=== PATIENT | male | born 1935 | race Caucasian/White ===

== ENCOUNTER → 2017-01-26 | Outpatient (CLI) | payer MEDICARE ==
[~2017-01-26] MED LIST: ACET-1256 PO; AVD5 PO; MULT-506 PO; PRED-301 PO; VITA400C15 PO; ZINC1CAP PO
[2017-01-26 12:21] LABS: BASO % 1.5 %; BASO ABS # 0.08 K/uL (0-0.2); COMPLETE YES; EOS % 3.7 %; IG% 0.2 %; LYMPH % 30.6 %; LYMPH ABS # 1.64 K/uL (1.2-3.4); MEAN CELL VOLUME 92.6 fL (80-100); MEAN CORPUSCULAR HEMOGLOBIN 31.6 pg (25-34); MEAN CORPUSCULAR HGB CONC 34.1 g/dl (32-36); MEAN PLATELET VOLUME 10.7 fL (7.4-10.4); MONO % 12.9 %; NEUT % 51.1 %; PLATELET COUNT 155 K/uL (130-400); RED BLOOD COUNT 4.21 M/uL (4.7-6.1); WHITE BLOOD COUNT 5.36 K/uL (4.8-10.8)
[2017-01-26 12:33] LABS: ESTIMATED AVERAGE GLUCOSE 134 mg/dl; HA1C FLAG Normal (Normal)
[2017-01-26 12:41] LABS: CHOLESTEROL/HDL RATIO 1.8
[2017-01-26 14:15] LABS: RATIO 5.5 mcg/mg (0-30.0)
== END | disposition home or self-care (01) ==
LOC: C.LAB1850 10:05
PROVIDERS: ATTEND Internal Medicine
DX: E11.9 Type 2 diabetes mellitus without complications (principal); E78.5 Hyperlipidemia, unspecified; M25.50 Pain in unspecified joint

== ENCOUNTER → 2017-07-28 | Outpatient (CLI) | payer MEDICARE ==
[2017-07-28 12:42] LABS: BASO ABS # 0.05 K/uL (0-0.2); COMPLETE YES; EOS % 3.4 %; HEMATOCRIT 37.8 % (42-52); IG% 0.2 %; LYMPH % 29.4 %; LYMPH ABS # 1.48 K/uL (1.2-3.4); MEAN CELL VOLUME 91.1 fL (80-100); MEAN CORPUSCULAR HEMOGLOBIN 31.8 pg (25-34); MEAN CORPUSCULAR HGB CONC 34.9 g/dl (32-36); MEAN PLATELET VOLUME 11.2 fL (7.4-10.4); MONO % 11.5 %; NEUT % 54.5 %; PLATELET COUNT 154 K/uL (130-400); RED BLOOD COUNT 4.15 M/uL (4.7-6.1); WHITE BLOOD COUNT 5.03 K/uL (4.8-10.8)
[2017-07-28 13:19] LABS: ALT/SGPT 33 U/L (12-78); AST/SGOT 26 U/L (15-37); BLOOD UREA NITROGEN 17 mg/dl (7-18); BUN/CREATININE RATIO 19.7 (10-20); CALCIUM 9.1 mg/dl (8.5-10.1); CARBON DIOXIDE 26 mmol/L (21-32); CHLORIDE 104 mmol/L (98-107); CREATININE 0.88 mg/dl (0.60-1.40); GLUCOSE 105 mg/dl (70-99); POTASSIUM 3.6 mmol/L (3.5-5.1); SODIUM 136 mmol/L (136-145)
[2017-07-28 13:21] LABS: ALKALINE PHOSPHATASE 43 U/L (45-117); CHOLESTEROL 158 mg/dl (0-200); CHOLESTEROL/HDL RATIO 1.7; HDL CHOLESTEROL 92 mg/dl; LDL CHOLESTEROL CALCULATED 56 mg/dl; TRIGLYCERIDES 49 mg/dl (0-150); VERY LOW DENSITY LIPOPROT CALC 10 mg/dl
[2017-07-28 14:17] LABS: ESTIMATED AVERAGE GLUCOSE 128 mg/dl; HA1C FLAG Normal (Normal)
== END | disposition home or self-care (01) ==
LOC: C.LABPBG 09:31
PROVIDERS: ATTEND Urology
DX: D64.9 Anemia, unspecified (principal); M13.0 Polyarthritis, unspecified; E78.5 Hyperlipidemia, unspecified; E11.9 Type 2 diabetes mellitus without complications

== ENCOUNTER → 2017-09-12 | Outpatient (CLI) | payer MEDICARE | END | disposition home or self-care (01) | LOC: C.LAB 12:04 | PROVIDERS: ATTEND Urology | DX: R97.20 Elevated prostate specific antigen [PSA] (principal); N40.3 Nodular prostate with lower urinary tract symptoms ==

== ENCOUNTER → 2018-01-23 | Outpatient (CLI) | payer MEDICARE ==
[2018-01-23 13:57] LABS: BASO ABS # 0.11 K/uL (0-0.2); EOS % 4.9 %; EOS ABS # 0.27 K/uL (0-0.5); HEMATOCRIT 38.2 % (42-52); IG# 0.02 K/uL (0.00-0.02); LYMPH % 30.6 %; LYMPH ABS # 1.69 K/uL (1.2-3.4); MEAN CELL VOLUME 90.1 fL (80-100); MEAN CORPUSCULAR HEMOGLOBIN 30.7 pg (25-34); MONO % 12.7 %; NEUT % 49.4 %; NEUT ABS # 2.74 K/uL (1.4-6.5); PLATELET COUNT 178 K/uL (130-400); RED CELL DISTRIBUTION WIDTH CV 13.8 % (11.5-14.5); RED CELL DISTRIBUTION WIDTH SD 46.1 fL (36.4-46.3); WHITE BLOOD COUNT 5.53 K/uL (4.8-10.8)
[2018-01-23 14:23] LABS: HEMOGLOBIN A1C 6.2 % (4.5-5.6)
[2018-01-23 14:42] LABS: ALBUMIN 3.4 gm/dl (3.4-5.0); ALKALINE PHOSPHATASE 49 U/L (45-117); ALT/SGPT 23 U/L (12-78); AST/SGOT 18 U/L (15-37); BLOOD UREA NITROGEN 19 mg/dl (7-18); CALCIUM 8.7 mg/dl (8.5-10.1); CARBON DIOXIDE 28 mmol/L (21-32); CREATININE 1.05 mg/dl (0.60-1.40); GLUCOSE 95 mg/dl (70-99); SODIUM 133 mmol/L (136-145); TOTAL PROTEIN 6.8 gm/dl (6.4-8.2)
[2018-01-23 14:47] LABS: CHOLESTEROL 149 mg/dl (0-200); LDL CHOLESTEROL CALCULATED 60 mg/dl
== END | disposition home or self-care (01) ==
LOC: C.LABPBG 09:51
PROVIDERS: ATTEND Internal Medicine
DX: Z00.00 Encounter for general adult medical examination without abnormal findings (principal); E78.5 Hyperlipidemia, unspecified; E11.9 Type 2 diabetes mellitus without complications

== ENCOUNTER → 2018-02-15 | Outpatient (CLI) | payer MEDICARE ==
[2018-02-15 12:11] LABS: BASO % 1.1 %; BASO ABS # 0.07 K/uL (0-0.2); EOS % 2.4 %; EOS ABS # 0.16 K/uL (0-0.5); HEMATOCRIT 39.2 % (42-52); HEMOGLOBIN 13.4 g/dL (14.0-18.0); IG# 0.03 K/uL (0.00-0.02); LYMPH % 16.6 %; LYMPH ABS # 1.09 K/uL (1.2-3.4); MEAN CELL VOLUME 88.9 fL (80-100); MEAN CORPUSCULAR HEMOGLOBIN 30.4 pg (25-34); MEAN CORPUSCULAR HGB CONC 34.2 g/dl (32-36); MEAN PLATELET VOLUME 10.5 fL (7.4-10.4); MONO % 8.7 %; MONO ABS # 0.57 K/uL (0.11-0.59); NEUT % 70.7 %; NEUT ABS # 4.63 K/uL (1.4-6.5); PLATELET COUNT 170 K/uL (130-400); RED CELL DISTRIBUTION WIDTH CV 14.1 % (11.5-14.5); RED CELL DISTRIBUTION WIDTH SD 46.4 fL (36.4-46.3); WHITE BLOOD COUNT 6.55 K/uL (4.8-10.8)
[2018-02-15 12:40] LABS: ALBUMIN 3.6 gm/dl (3.4-5.0); AST/SGOT 21 U/L (15-37); CREATININE 1.12 mg/dl (0.60-1.40)
[2018-02-15 12:43] LABS: ALKALINE PHOSPHATASE 46 U/L (45-117); ALT/SGPT 27 U/L (12-78)
== END | disposition home or self-care (01) ==
LOC: C.LAB1850 11:15
PROVIDERS: ATTEND Physician Assistant
DX: Z79.899 Other long term (current) drug therapy (principal)

== ENCOUNTER 2022-10-28 12:49 | Inpatient (IN) ==
--- NOTE | 2022-10-28 13:26 | XRay Report ---
XR chest 2V PA/lateral HISTORY: Stroke symptoms. COMPARISON: None. FINDINGS: No pneumothorax. No pleural effusions. The cardiac silhouette is mildly enlarged. No focal lung consolidations to suggest a pneumonia. No evidence for pulmonary edema. Slightly rotated study. There are old, healed left-sided rib fractures. There are low lung volumes. IMPRESSION: Mild cardiomegaly. Otherwise, no acute process within the chest. ACT 112: Negative or not required by law. Electronically signed by: Charbel Shrestha M.D. 10/28/2022 1:25 PM
[2022-10-28 14:03] LABS: Hematocrit (blood only) 38.9 % (40.1-51.0); Hemoglobin 13.7 g/dl (14.0-18.0); Mean Corpuscular Hemoglobin 33.1 pg (25.0-34.0); Mean Corpuscular Hgb Conc 35.2 g/dL (32.0-36.0); Mean Platelet Volume 10.9 fL (9.4-12.4); Platelet Count 142 K/uL (130-400); RDW Coefficient of Variation 13.7 % (11.5-14.5); RDW Standard Deviation 47.1 fL (36.4-46.3); Red Blood Count 4.14 M/uL (4.63-6.08); White Blood Count 6.17 K/ul (4.8-10.8)
[2022-10-28 14:15] LABS: INR 1.1 (0.9-1.1); Partial Thromboplastin Ratio 0.9; Partial Thromboplastin Time 25.9 Seconds (21.0-31.0); Prothrombin Time 11.9 Seconds (9.0-12.0)
[2022-10-28 14:32] LABS: Albumin Globulin Ratio 1.5 (0.9-2); Albumin Level 3.8 gm/dl (3.4-5.0); BUN Creatinine Ratio 22.5 (10-20); Bilirubin,Total 1.2 mg/dl (0.2-1.0); Calcium 8.8 mg/dl (8.5-10.1); Creatinine Clr Calc Pharmacy 60.7 ml/min; Est GFR (African American) 90.4 ml/min; Globulin 2.5 gm/dl (2.5-4.0); Magnesium 1.8 mg/dl (1.7-2.4); Potassium 4.2 mmol/L (3.5-5.1); Total Protein 6.3 gm/dl (6.0-8.3)
--- NOTE | 2022-10-28 14:39 | Emergency Department Note ---
Impression & Plan TIA (transient ischemic attack) ADMIT ED Provider Note HPI: The patient is an 87-year-old gentleman with history of hyperlipidemia, diabetes, presents the emergency department with a chief complaint of a transient episode of garbled speech last evening prior to going to bed. Patient's states that the patient was going to the restroom when he seemed to not be making sense and talking to himself down the hallway. She states that for approximately 5 minutes he was having difficulty expressing his words. She states this then abruptly improved and he was making sense again. He slept comfortably throughout the night and again into this morning, however concern for a possible stroke episode he was brought to the ED today for further assessment. On my initial evaluation here in the ED the patient appears well, he does not have any focal deficits, he is able to answer my questions appropriately, he does admit to this episode yesterday and states he does remember feeling as if he could not express his words. He states he has not had any similar events previously. Patient is noted to be bradycardic on arrival in the 40s, states that this has not previously been an issue either. Patient denies any chest pain or shortness of breath. ROS: - Per HPI *Outpatient medications and allergy history reviewed. *Pertinent external medical records reviewed. PE: General: Alert frail-appearing, no acute distress HEENT: Normocephalic, trachea midline Eyes: Extraocular eye movement is intact, no scleral erythema Pulmonary: Clear to auscultation bilaterally, no wheezing Cardio: Bradycardic rate with regular rhythm GI: Abdomen is soft, nontender : No suprapubic tenderness MSK: No evidence of trauma or malformation of the extremities, no edema Skin: No evidence of rash Neuro: Alert, no focal deficits, no ataxia on [id number] testing bilaterally, symmetrical facial movements are appreciated, no drift of the upper extremities or lower extremities with testing against gravity Psychiatric: Cooperative hospital monitor: - An order was placed for continuous cardiac monitoring - Patient was noted to be in junctional bradycardia with a rate of 47 EKG: (As interpreted by myself): Rate: 42 Rhythm: Junctional bradycardia Intervals: IN interval indeterminate, QRS 118 ms, QTC [address] changes: No ST elevation Time: 1441 NIH STROKE SCALE: 1A: Level of consciousness Alert; keenly responsive 0 1B: Ask month and age Both questions right 0 1C: 'Blink eyes' & 'squeeze hands' Performs both tasks 0 2: Horizontal extraocular movements Normal 0 3: Visual barry No visual loss 0 4: Facial palsy Normal symmetry 0 5A: Left arm motor drift No drift for 10 seconds 0 5B: Right arm motor drift No drift for 10 seconds 0 6A: Left leg motor drift No drift for 5 seconds 0 6B: Right leg motor drift No drift for 5 seconds 0 7: Limb Ataxia No ataxia 0 8: Sensation Normal; no sensory loss 0 9: Language/aphasia Normal; no aphasia 0 10: Dysarthria Normal 0 11: Extinction/inattention No abnormality 0 TOTAL NIH SCORE =0 Medical Decision Making: Patient presented to the emergency department with an episode of transient expressive aphasia last evening. On arrival here to the ED he appears well, he is noted to be bradycardic with apparent junctional bradycardia on EKG although he has been asymptomatic from the standpoint, no syncope or presyncope, no chest pain or shortness of breath. Patient's blood pressure has been stable throughout his presentation here in the ED, he is afebrile on arrival and saturating well on room air. Patient was not considered a candidate for tPA or aggressive therapy given his symptom resolution on my examination and his episode occurring last evening. CT imaging of the head including CT angiography of the head and neck was obtained that does not show any evidence of large vessel occlusion or obvious subacute stroke. Lab work does not show any acute or critical abnormalities. Patient remained stable while here in the ED without any new focal deficits. I suspect that he may have had a transient ischemic attack given his expressive aphasia last evening. He does at times have some delay in response to my questioning here, although he is alert and oriented x3. Aspirin was not given secondary to allergy history obtained from at the bedside. I discussed all of the above findings with the patient, his nephew, and his at the bedside. At this time I feel it would be reasonable to admit the patient for further monitoring and likely cardiology consultation regarding his bradycardia. I did discuss the patient's presentation and EKG findings with on- call cardiology, Dr. Quinonez, he is agreeable for inpatient consultation at this time given the patient's otherwise hemodynamic stability and lack of symptoms from the standpoint of his bradycardia, I do not think emergency consultation with cardiology is required here in the ED. Patient and his family are in agreement for admission, patient was placed for admission in stable condition following my discussion with the on-call hospitalist, Dr. Koo. Disposition discussion held by myself with: Patient, , and nephew at the bedside Diagnosis: 1. Transient episode of expressive aphasia / TIA symptoms 2. Bradycardia Disposition: Admission Sergey Noel DO Emergency Medicine Past Med/Surg History Medical History Acute gout (07/12/14) Anemia Arthralgia Cellulitis of hand, right Crush injury to finger Degenerative arthritis of knee, bilateral Diabetes mellitus Fasciitis (07/01/14) Finger laceration Fracture of pelvis History of diverticulitis Hyperlipidemia Inflammatory polyarthropathy Left arm cellulitis Metabolic disorder Surgical History H/O hand surgery S/P cataract surgery Family History Brother Prostate cancer Sister Diabetes Denies family history of Ovarian cancer Myocardial infarction Breast cancer Colorectal cancer Social History Smoking Status: Never smoker Second Hand Exposure: No; Hx Alcohol Use: No Hx Substance Use: No Preferred Language: Azerbaijani Communication Ability: Effective marital status: Current Living Situation: Spouse current occupational status: retired Feels Safe at Home: Yes Seatbelt Use: always Allergies Allergies Allergy/AdvReac Type Severity Reaction Status Date / Time ibuprofen Allergy Unknown swelling Verified 10/28/22 15:36 Home Meds Home Medications Medication Instructions Recorded Confirmed prednisone 5 mg tablet 5 mg PO QAM 06/13/19 10/28/22 risedronate 35 mg tablet 35 mg PO WK 06/13/19 10/28/22 cholecalciferol (vitamin D3) 25 25 mcg PO DAILY 10/28/22 10/28/22 mcg (1,000 unit) tablet (Vitamin D3) nystatin-triamcinolone 100,000 1 applic topical BID PRN as needed 10/28/22 10/28/22 unit/g-0.1 % topical cream Previous Rx's Medication Instructions Recorded qywxymgc-jex-jpjmc acid 300 1 tab PO DAILY #30 tabs 06/13/19 mcg-lycopene 600 mcg-lutein 300 mcg tablet (Centrum Silver Ultra Men's) mometasone 0.1 % topical cream 1 applic topical DAILY #159 grams 06/07/22 dutasteride 0.5 mg capsule 0.5 mg PO DAILY #90 caps 09/14/22 (Avodart) Results & Data (ED) Vital Signs Vital Signs - 24 hr 10/28/22 12:52 10/28/22 14:05 Temperature 36.3 C L Temperature Source Skin Pulse Rate 44 L Pulse Rhythm Regular Pulse Strength Normal Respiratory Rate 20 Respiratory Effort / Characteristics Non-Labored Spontaneous Respiratory Depth Normal Respiratory Pattern Regular Blood Pressure 117/66 Blood Pressure Mean 83 Pulse Oximetry 98 93 Oxygen Delivery Method Room Air Room Air Sepsis Recent Fever Within 48 Hours No Sepsis New/Unexplained Change in Mental Status N/A Sepsis Action Taken by Nursing No Action Required Laboratory Data 10/28/22 13:42 10/28/22 13:42 Lab Results 10/28/22 10/28/22 10/28/22 Range/Units 13:42 13:42 13:42 WBC 6.17 (4.8-10.8) K/ul RBC 4.14 L (4.63-6.08) M/uL Hgb 13.7 L (14.0-18.0) g/dl Hct 38.9 L (40.1-51.0) % MCV 94.0 (80.0-100.0) fL MCH 33.1 (25.0-34.0) pg MCHC 35.2 (32.0-36.0) g/dL RDW Std Deviation 47.1 H (36.4-46.3) fL RDW Coeff of Nay 13.7 (11.5-14.5) % Plt Count 142 (130-400) K/uL MPV 10.9 (9.4-12.4) fL PT 11.9 (9.0-12.0) Seconds INR 1.1 (0.9-1.1) APTT 25.9 (21.0-31.0) Seconds PTT Ratio 0.9 Sodium 131 L (136-145) mmol/L Potassium 4.2 (3.5-5.1) mmol/L Chloride 96 L (98-107) mmol/L Carbon Dioxide 29 (21-32) mmol/L Anion Gap 6 (3-11) BUN 20 (6-23) mg/dl Creatinine 0.89 (0.6-1.4) mg/dl Est Cr Clr Drug Dosing 60.7 ml/min Est GFR ( Amer) 90.4 ml/min Est GFR (Non-Af Amer) 78.0 ml/min BUN/Creatinine Ratio 22.5 H (10-20) Glucose 97 (70-99(Fasting)) mg/dl POC Glucose (70-99) mg/dl Calcium 8.8 (8.5-10.1) mg/dl Magnesium 1.8 (1.7-2.4) mg/dl Total Bilirubin 1.2 H (0.2-1.0) mg/dl AST 19 (13-39) U/L ALT 24 (7-52) U/L Alkaline Phosphatase 50 (34-104) U/L Total Protein 6.3 (6.0-8.3) gm/dl Albumin 3.8 (3.4-5.0) gm/dl Globulin 2.5 (2.5-4.0) gm/dl Albumin/Globulin Ratio 1.5 (0.9-2) SARS-CoV-2, RNA, NAAT (NEGATIVE) 10/28/22 10/28/22 Range/Units 14:04 15:45 WBC (4.8-10.8) K/ul RBC (4.63-6.08) M/uL Hgb (14.0-18.0) g/dl Hct (40.1-51.0) % MCV (80.0-100.0) fL MCH (25.0-34.0) pg MCHC (32.0-36.0) g/dL RDW Std Deviation (36.4-46.3) fL RDW Coeff of Nay (11.5-14.5) % Plt Count (130-400) K/uL MPV (9.4-12.4) fL PT (9.0-12.0) Seconds INR (0.9-1.1) APTT (21.0-31.0) Seconds PTT Ratio Sodium (136-145) mmol/L Potassium (3.5-5.1) mmol/L Chloride (98-107) mmol/L Carbon Dioxide (21-32) mmol/L Anion Gap (3-11) BUN (6-23) mg/dl Creatinine (0.6-1.4) mg/dl Est Cr Clr Drug Dosing ml/min Est GFR ( Amer) ml/min Est GFR (Non-Af Amer) ml/min BUN/Creatinine Ratio (10-20) Glucose (70-99(Fasting)) mg/dl POC Glucose 125 H (70-99) mg/dl Calcium (8.5-10.1) mg/dl Magnesium (1.7-2.4) mg/dl Total Bilirubin (0.2-1.0) mg/dl AST (13-39) U/L ALT (7-52) U/L Alkaline Phosphatase (34-104) U/L Total Protein (6.0-8.3) gm/dl Albumin (3.4-5.0) gm/dl Globulin (2.5-4.0) gm/dl Albumin/Globulin Ratio (0.9-2) SARS-CoV-2, RNA, NAAT NEGATIVE (NEGATIVE) Administered Medications Discontinued Medications Ioversol (Optiray 320 500ml) 115 ml IV ONCE ONE Stop: 10/28/22 15:12 Last Admin: 10/28/22 15:11 Dose: 115 ml Documented By: JEFFY Imaging Data Radiologist's Impression: Chest X-Ray 10/28/22 13:00 XR chest 2V PA/lateral HISTORY: Stroke symptoms. COMPARISON: None. FINDINGS: No pneumothorax. No pleural effusions. The cardiac silhouette is mildly enlarged. No focal lung consolidations to suggest a pneumonia. No evidence for pulmonary edema. Slightly rotated study. There are old, healed left-sided rib fractures. There are low lung volumes. IMPRESSION: Mild cardiomegaly. Otherwise, no acute process within the chest. ACT 112: Negative or not required by law. Electronically signed by: Charbel Shrestha M.D. 10/28/2022 1:[address] 10/28/22 13:[address] OF THE BRAIN; CT ANGIOGRAM OF THE BRAIN; CT ANGIOGRAM OF THE NECK CLINICAL HISTORY: Strokelike symptoms. COMPARISON STUDY: No priors. TECHNIQUE: Unenhanced axial CT scan of the brain is performed. Subsequently, following the IV administration of 115 of Optiray 320, CT angiogram of the head and neck was performed from the aortic arch to the vertex. Images are reviewed in the axial, sagittal, and coronal planes. 3-D MIPS images are created and assessed. IV contrast was administered without complication. All measurements were calculated based on NASCET criteria. A dose lowering technique was utilized adhering to the principles of ALARA. CT DOSE: 1074.00 mGy.cm FINDINGS: Brain parenchyma: There is age-related involutional change noting moderate subcortical and periventricular microangiopathic disease. There is no hemorrhag e, mass effect, or evidence of acute territorial ischemia by CT criteria. There is no evidence of enhancing mass lesion on the angiogram phase images. The ventricles, sulci, and cisterns are prominent secondary to involutional change. Manzano-white matter differentiation is preserved. No extra-axial fluid collection is seen. Thoracic aorta: There is atherosclerotic calcification of the thoracic aorta. Visualized portions of the thoracic aorta are normal in caliber. The aortic arch demonstrates standard 3-vessel anatomy. Right carotid arterial system: The right common carotid artery is widely patent, as are the right internal and external carotid arteries. There is tortuosity of the distal ICA. There is ectasia of the distal internal carotid artery which measures up to 9 mm diameter. The distal internal carotid artery demonstrate a beaded appearance suggesting fibromuscular dysplasia. Left carotid arterial system: The left common carotid artery is widely patent, as are the left internal and external carotid arteries. There is tortuosity of the distal ICA. The internal carotid artery demonstrates a beaded appearance suggesting fibromuscular dysplasia. Vertebral arteries: There is mild to moderate stenosis at the origin of the right vertebral artery. The vertebral arteries are otherwise widely patent bilaterally noting left-sided dominance. There is a computed appearance of the m id to distal left vertebral artery suggesting fibromuscular dysplasia. Subclavian arteries: Widely patent bilaterally. Intracranial vasculature: There is atherosclerotic calcification of the cavernous carotid arteries. The internal carotid arteries are patent at the skull base, as are the anterior and middle cerebral arteries bilaterally. There is a right posterior communicating artery. The vertebrobasilar system and posterior cerebral arteries are widely patent. The left vertebral artery is dominant. The right vertebral artery is diminutive and terminates as the PICA. There is no aneurysm, high-grade stenosis, or focal vessel cut off seen throughout the intracranial circulation. Jugular veins: Patent bilaterally. Dural sinuses: Patent. Lung apices: A 4 mm focus of pleural-based nodularity in the left upper lobe all the major fissure is seen on image #67. Upper lobe lung parenchyma is otherwise clear as visualized. Soft tissues: The visualized pharyngeal soft tissues are normal in appearance noting angiographic phase technique. The oropharyngeal airway appears widely patent. The thyroid gland is heterogeneous. The salivary are normal in appearance. No cervical lymphadenopathy is seen. Skeletal structures: The skeletal structures are osteopenic. The calvarium appears intact. The cervical spine is maintained during multilevel spondylosis. No lytic or blastic lesion is seen. Orbits: The bony orbits are intact. Orbital contents are normal as visualized noting bilateral ocular lens implants. Sinuses and mastoids: There is trace mucosal thickening in the right maxillary antrum. The remaining paranasal sinuses are clear. The mastoid air cells are well pneumatized. IMPRESSION: 1. There is no hemorrhage, mass effect, or evidence of acute territorial ischemia by CT criteria. 2. Unremarkable CT angiogram of the brain. 3. There is mild to moderate stenosis at the origin of the diminutive right vertebral artery. The dominant left vertebral artery is widely patent. 4. The carotid arteries are widely patent bilaterally. 5. The internal carotid arteries and the left vertebral artery demonstrate a beaded appearance suggesting fibromuscular dysplasia. ACT 112: Negative or not required by law. Electronically signed by: Néstor Webster M.D. 10/28/2022 3:34 PM Head CTA 10/28/22 13:[address] OF THE BRAIN; CT ANGIOGRAM OF THE BRAIN; CT ANGIOGRAM OF THE NECK CLINICAL HISTORY: Strokelike symptoms. COMPARISON STUDY: No priors. TECHNIQUE: Unenhanced axial CT scan of the brain is performed. Subsequently, following the IV administration of 115 of Optiray 320, CT angiogram of the head and neck was performed from the aortic arch to the vertex. Images are reviewed in the axial, sagittal, and coronal planes. 3-D MIPS images are created and assessed. IV contrast was administered without complication. All measurements were calculated based on NASCET criteria. A dose lowering technique was utilized adhering to the principles of ALARA. CT DOSE: 1074.00 mGy.cm FINDINGS: Brain parenchyma: There is age-related involutional change noting moderate subcortical and periventricular microangiopathic disease. There is no hemorrhage, mass effect, or evidence of acute territorial ischemia by CT criteria. There is no evidence of enhancing mass lesion on the angiogram phase images. The ventricles, sulci, and cisterns are prominent secondary to invol utional change. Manzano-white matter differentiation is preserved. No extra-axial fluid collection is seen. Thoracic aorta: There is atherosclerotic calcification of the thoracic aorta. Visualized portions of the thoracic aorta are normal in caliber. The aortic arch demonstrates standard 3-vessel anatomy. Right carotid arterial system: The right common carotid artery is widely patent, as are the right internal and external carotid arteries. There is tortuosity of the distal ICA. There is ectasia of the distal internal carotid artery which measures up to 9 mm diameter. The distal internal carotid artery demonstrate a beaded appearance suggesting fibromuscular dysplasia. Left carotid arterial system: The left common carotid artery is widely patent, as are the left internal and external carotid arteries. There is tortuosity of the distal ICA. The internal carotid artery demonstrates a beaded appearance suggesting fibromuscular dysplasia. Vertebral arteries: There is mild to moderate stenosis at the origin of the right vertebral artery. The vertebral arteries are otherwise widely patent bilaterally noting left-sided dominance. There is a computed appearance of the mid to distal left vertebral artery suggesting fibromuscular dysplasia. Subclavian arteries: Widely patent bilaterally. Intracranial vasculature: There is atherosclerotic calcification of the cavernous carotid arteries. The internal carotid arteries are patent at the skull base, as are the anterior and middle cerebral arteries bilaterally. There is a right posterior communicating artery. The vertebrobasilar system and posterior cerebral arteries are widely patent. The left vertebral artery is dominant. The right vertebral artery is diminutive and terminates as the PICA. There is no aneurysm, high-grade stenosis, or focal vessel cut off seen throughout the intracranial circulation. Jugular veins: Patent bilaterally. Dural sinuses: Patent. Lung apices: A 4 mm focus of pleural-based nodularity in the left upper lobe all the major fissure is seen on image #67. Upper lobe lung parenchyma is otherwise clear as visualized. Soft tissues: The visualized pharyngeal soft tissues are normal in appearance noting angiographic phase technique. The oropharyngeal airway appears widely patent. The thyroid gland is heterogeneous. The salivary are normal in appearan ce. No cervical lymphadenopathy is seen. Skeletal structures: The skeletal structures are osteopenic. The calvarium appears intact. The cervical spine is maintained during multilevel spondylosis. No lytic or blastic lesion is seen. Orbits: The bony orbits are intact. Orbital contents are normal as visualized noting bilateral ocular lens implants. Sinuses and mastoids: There is trace mucosal thickening in the right maxillary antrum. The remaining paranasal sinuses are clear. The mastoid air cells are well pneumatized. IMPRESSION: 1. There is no hemorrhage, mass effect, or evidence of acute territorial ischemia by CT criteria. 2. Unremarkable CT angiogram of the brain. 3. There is mild to moderate stenosis at the origin of the diminutive right vertebral artery. The dominant left vertebral artery is widely patent. 4. The carotid arteries are widely patent bilaterally. 5. The internal carotid arteries and the left vertebral artery demonstrate a beaded appearance suggesting fibromuscular dysplasia. ACT 112: Negative or not required by law. Electronically signed by: Néstor Webster M.D. 10/28/2022 3:34 PM Neck CTA 10/28/22 13:[address] OF THE BRAIN; CT ANGIOGRAM OF THE BRAIN; CT ANGIOGRAM OF THE NECK CLINICAL HISTORY: Strokelike symptoms. COMPARISON STUDY: No priors. TECHNIQUE: Unenhanced axial CT scan of the brain is performed. Subsequently, following the IV administration of 115 of Optiray 320, CT angiogram of the head and neck was performed from the aortic arch to the vertex. Images are reviewed in the axial, sagittal, and coronal planes. 3-D MIPS images are created and a ssessed. IV contrast was administered without complication. All measurements were calculated based on NASCET criteria. A dose lowering technique was utilized adhering to the principles of ALARA. CT DOSE: 1074.00 mGy.cm FINDINGS: Brain parenchyma: There is age-related involutional change noting moderate subcortical and periventricular microangiopathic disease. There is no hemorrhage, mass effect, or evidence of acute territorial ischemia by CT criteria. There is no evidence of enhancing mass lesion on the angiogram phase images. The ventricles, sulci, and cisterns are prominent secondary to involutional change. Manzano-white matter differentiation is preserved. No extra- axial fluid collection is seen. Thoracic aorta: There is atherosclerotic calcification of the thoracic aorta. Visualized portions of the thoracic aorta are normal in caliber. The aortic arch demonstrates standard 3-vessel anatomy. Right carotid arterial system: The right common carotid artery is widely patent, as are the right internal and external carotid arteries. There is tortuosity of the distal ICA. There is ectasia of the distal internal carotid artery which measures up to 9 mm diameter. The distal internal carotid artery demonstrate a beaded appearance suggesting fibromuscular dysplasia. Left carotid arterial system: The left common carotid artery is widely patent, as are the left internal and external carotid arteries. There is tortuosity of the distal ICA. The internal carotid artery demonstrates a beaded appearance suggesting fibromuscular dysplasia. Vertebral arteries: There is mild to moderate stenosis at the origin of the right vertebral artery. The vertebral arteries are otherwise widely patent bilaterally noting left-sided dominance. There is a computed appearance of the mid to distal left vertebral artery suggesting fibromuscular dysplasia. Subclavian arteries: Widely patent bilaterally. Intracranial vasculature: There is atherosclerotic calcification of the cavernous carotid arteries. The internal carotid arteries are patent at the skull base, as are the anterior and middle cerebral arteries bilaterally. There is a right posterior communicating artery. The vertebrobasilar system and posterior cerebral arteries are widely patent. The left vertebral artery is dominant. The right vertebral artery is diminutive and terminates as the PICA. There is no aneurysm, high-grade stenosis, or focal vessel cut off seen throughout the intracranial circulation. Jugular veins: Patent bilaterally. Dural sinuses: Patent. Lung apices: A 4 mm focus of pleural-based nodularity in the left upper lobe all the major fissure is seen on image #67. Upper lobe lung parenchyma is otherwise clear as visualized. Soft tissues: The visualized pharyngeal soft tissues are normal in appearance noting angiographic phase technique. The oropharyngeal airway appears widely patent. The thyroid gland is heterogeneous. The salivary are normal in appearance. No cervical lymphadenopathy is seen. Skeletal structures: The skeletal structures are osteopenic. The calvarium appears intact. The cervical spine is maintained during multilevel spondylosis. No lytic or blastic lesion is seen. Orbits: The bony orbits are intact. Orbital contents are normal as visualized noting bilateral ocular lens implants. Sinuses and mastoids: There is trace mucosal thickening in the right maxillary antrum. The remaining paranasal sinuses are clear. The mastoid air cells are well pneumatized. IMPRESSION: 1. There is no hemorrhage, mass effect, or evidence of acute territorial ischemia by CT criteria. 2. Unremarkable CT angiogram of the brain. 3. There is mild to moderate stenosis at the origin of the diminutive right vertebral artery. The dominant left vertebral artery is widely patent. 4. The carotid arteries are widely patent bilaterally. 5. The internal carotid arteries and the left vertebral artery demonstrate a beaded appearance suggesting fibromuscular dysplasia. ACT 112: Negative or not required by law. Electronically signed by: Néstor Webster M.D. 10/28/2022 3:34 PM Discharge Plan Visit Data Chief Complaint: Stroke/CVA Symptoms Stated Complaint: POSSIBLE CVA EPISODE ED Provider: Sergey Noel Discharge Problem: TIA (transient ischemic attack) Patient Disposition: Admitted As Inpatient Forms Stand Alone Forms: My [facility] Prescriptions Prescriptions: No Action mometasone 0.1 % cream 1 applic TOP DAILY Qty: 159 0RF dutasteride [Avodart] 0.5 mg capsule 0.5 mg PO DAILY Qty: 90 3RF Centrum Silver Ultra Men's 300-600-300 mcg tablet 1 tab PO DAILY Qty: 30 0RF prednisone 5 mg tablet 5 mg PO QAM risedronate 35 mg tablet 35 mg PO WK nystatin-triamcinolone 100,000-0.1 unit/g-% cream 1 applic TOP BID PRN (Reason: as needed) cholecalciferol (vitamin D3) [Vitamin D3] 25 mcg (1,000 unit) Tablet 25 mcg PO DAILY Referrals Referrals: Pro,Jim Hensley MD [Primary Care Provider] -
[2022-10-28] MEDS ORDERED: OPTIRAY 320 500ml IV ONE (15:11)
--- NOTE | 2022-10-28 15:35 | CT Scan Report ---
UNENHANCED CT OF THE BRAIN; CT ANGIOGRAM OF THE BRAIN; CT ANGIOGRAM OF THE NECK CLINICAL HISTORY: Strokelike symptoms. COMPARISON STUDY: No priors. TECHNIQUE: Unenhanced axial CT scan of the brain is performed. Subsequently, following the IV adminis tration of 115 of [address] 320, CT angiogram of the head and neck was performed from the aortic arch t o the vertex. Images are reviewed in the axial, sagittal, and coronal planes. 3-D MIPS images are cre ated and assessed. IV contrast was administered without complication. All measurements were calculate d based on NASCET criteria. A dose lowering technique was utilized adhering to the principles of ALA RA. CT DOSE: 1074.00 mGy.cm FINDINGS: Brain parenchyma: There is age-related involutional change noting moderate subcortical and periventri cular microangiopathic disease. There is no hemorrhage, mass effect, or evidence of acute territorial ischemia by CT criteria. There is no evidence of enhancing mass lesion on the angiogram phase images . The ventricles, sulci, and cisterns are prominent secondary to involutional change. Manzano-white jose er differentiation is preserved. No extra-axial fluid collection is seen. Thoracic aorta: There is atherosclerotic calcification of the thoracic aorta. Visualized portions of the thoracic aorta are normal in caliber. The aortic arch demonstrates standard 3-vessel anatomy. Right carotid arterial system: The right common carotid artery is widely patent, as are the right int ernal and external carotid arteries. There is tortuosity of the distal ICA. There is ectasia of the d istal internal carotid artery which measures up to 9 mm diameter. The distal internal carotid artery demonstrate a beaded appearance suggesting fibromuscular dysplasia. Left carotid arterial system: The left common carotid artery is widely patent, as are the left internal grinding machine operator al and external carotid arteries. There is tortuosity of the distal ICA. The internal carotid artery demonstrates a beaded appearance suggesting fibromuscular dysplasia. Vertebral arteries: There is mild to moderate stenosis at the origin of the right vertebral artery. T he vertebral arteries are otherwise widely patent bilaterally noting left-sided dominance. There is a computed appearance of the mid to distal left vertebral artery suggesting fibromuscular dysplasia. Subclavian arteries: Widely patent bilaterally. Intracranial vasculature: There is atherosclerotic calcification of the cavernous carotid arteries. T he internal carotid arteries are patent at the skull base, as are the anterior and middle cerebral ar teries bilaterally. There is a right posterior communicating artery. The vertebrobasilar system and p osterior cerebral arteries are widely patent. The left vertebral artery is dominant. The right verteb ral artery is diminutive and terminates as the PICA. There is no aneurysm, high-grade stenosis, or fo aftab vessel cut off seen throughout the intracranial circulation. Jugular veins: Patent bilaterally. Dural sinuses: Patent. Lung apices: A 4 mm focus of pleural-based nodularity in the left upper lobe all the major fissure is seen on image #67. Upper lobe lung parenchyma is otherwise clear as visualized. Soft tissues: The visualized pharyngeal soft tissues are normal in appearance noting angiographic pha se technique. The oropharyngeal airway appears widely patent. The thyroid gland is heterogeneous. The salivary are normal in appearance. No cervical lymphadenopathy is seen. Skeletal structures: The skeletal structures are osteopenic. The calvarium appears intact. The cervic al spine is maintained during multilevel spondylosis. No lytic or blastic lesion is seen. Orbits: The bony orbits are intact. Orbital contents are normal as visualized noting bilateral ocular lens implants. Sinuses and mastoids: There is trace mucosal thickening in the right maxillary antrum. The remaining paranasal sinuses are clear. The mastoid air cells are well pneumatized. IMPRESSION: 1. There is no hemorrhage, mass effect, or evidence of acute territorial ischemia by CT criteria. 2. Unremarkable CT angiogram of the brain. 3. There is mild to moderate stenosis at the origin of the diminutive right vertebral artery. The dom inant left vertebral artery is widely patent. 4. The carotid arteries are widely patent bilaterally. 5. The internal carotid arteries and the left vertebral artery demonstrate a beaded appearance sugges ting fibromuscular dysplasia. ACT 112: Negative or not required by law. Electronically signed by: Néstor Webster M.D. 10/28/2022 3:34 PM
--- NOTE | 2022-10-28 16:29 | History & Physical Report ---
Date of Service October 28, 2022 Assessment & Plan (1) TIA (transient ischemic attack): Plan: Grey Sosa is an 87-year-old male with past medical history of DM, HL DNR/DNI, discussed with patient about Dysarthria suspicious for TIA CThead:1. There is no hemorrhage, mass effect, or evidence of acute territorial ischemia by CT criteria. CT-H/N: Unremarkable CT angiogram of the brain. There is mild to moderate stenosis at the origin of the diminutive right vertebral artery. The dominant left vertebral artery is widely patent. The carotid arteries are widely patent bilaterally. The internal carotid arteries and the left vertebral artery demonstrate a beaded appearance suggesting fibromuscular dysplasia. MRI pending History consistent with dysarthria rather than expressive aphasia Lipid panel pending Echo pending Continue on telemetry TNKase not indicated, patient feels back to baseline Vertebral narrowing? For muscular dysplasia Noted on CT angiogram No history of renal disease, resistant hypertension consistent with FMD. ? Risk of TIA given presented as expressive aphasia. Will treat with medical therapy with aspirin, was not on antiplatelet previously, complete stroke work- up as above Junctional bradycardia EKG: Junctional rhythm with PVCs, QTC 440. No ST segment changes. Normotensive, some chronotropic response at bedside Patient denies history of SC, bradycardia, or problems in the past. 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 Is not on home antilipemics at this time. Trend BMP daily, if hyperglycemic can add consistent carb diet and sliding scale coverage at that time DVT prophylaxis: Lovenox Disposition: PCU CODE STATUS: DNR, discussed with patient and family at bedside Diet: Heart healthy following speech eval, (2) Murmur: (3) BPH loc w/o ur obs/LUTS: (4) Diabetes mellitus: (5) Anemia: (6) Junctional bradycardia: History of Present Illness Primary Care Provider: Jim Qiu MD In the living room last night and mentioned he had to use the bathroom. WEnt ot use the bathroom, voided, but then afterwards was having garbled speech for 4 minutes. Was able to tell his his name after and then speech returned to normal shortly after. Did OK overnight, got up to use the bathroom 2x, and has been normal since. During the episode could understand speech, and knew what words he wanted to say but speech was garbled. NO history of similar of similar symptoms. Hx of murmur, denies heart problems/arrythmia/SC. NO history of blood pressure problems. No renal problems. +BPH on dutasteride. Trace bilateral le swelling chronically no change. R knee pain/swelling. Is waiting to have R knee replacement at [facility]. Feels normal at bedside. No weakness or vision change. No weakness. No lightheadedness/dizziness. Has had some intermittent confusion but well oriented normally and conversive. Not on aspirin, thinks was on it many years ago. Is on prednisone 5mg chronically for inflammatory arthritis. Medical History: Reviewed Medications: Reviewed Surgical History: Reviewed Allergies: Reviewed Social History: No tobacco product, etoh, or recreational drug. Code Status:DNR Allergies Allergy/AdvReac Type Severity Reaction Status Date / Time ibuprofen Allergy Unknown swelling Verified 10/28/22 15:36 Home Medications Medication Instructions Recorded Confirmed Type qvnssmpw-kzv-kgieh acid 300 1 tab PO DAILY #30 tabs 06/13/19 10/28/22 Rx mcg-lycopene 600 mcg-lutein 300 mcg tablet (Centrum Silver Ultra Men's) prednisone 5 mg tablet 5 mg PO QAM 06/13/19 10/28/22 History risedronate 35 mg tablet 35 mg PO WK 06/13/19 10/28/22 History mometasone 0.1 % topical cream 1 applic topical DAILY #159 grams 06/07/22 10/28/22 Rx dutasteride 0.5 mg capsule 0.5 mg PO DAILY #90 caps 09/14/22 10/28/22 Rx (Avodart) cholecalciferol (vitamin D3) 25 25 mcg PO DAILY 10/28/22 10/28/22 History mcg (1,000 unit) tablet (Vitamin D3) nystatin-triamcinolone 100,000 1 applic topical BID PRN as needed 10/28/22 10/28/22 History unit/g-0.1 % topical cream Past Med/Surg History Medical History Acute gout (07/12/14) Anemia Arthralgia Cellulitis of hand, right Crush injury to finger Degenerative arthritis of knee, bilateral Diabetes mellitus Fasciitis (07/01/14) Finger laceration Fracture of pelvis History of diverticulitis Hyperlipidemia Inflammatory polyarthropathy Left arm cellulitis Metabolic disorder Surgical History H/O hand surgery repaired Tenotomy flexor S/P cataract surgery bilateral Family History Brother Prostate cancer Sister Diabetes type 2 Denies family history of Ovarian cancer Myocardial infarction Breast cancer Colorectal cancer Social History Smoking Status: Never smoker Second Hand Exposure: No; Hx Alcohol Use: No Hx Substance Use: No Preferred Language: Malawian Communication Ability: Effective marital status: Current Living Situation: Spouse current occupational status: retired Feels Safe at Home: Yes Seatbelt Use: always Review of Systems Review of Systems: All systems reviewed & are unremarkable except as noted in HPI & below Physical Exam Physical Exam: General: A&Ox3. NAD. Cooperative. Tangential, requires redirection HEENT: Atraumatic, normocephalic. NO assymetry.Speech fluent. Pulm: CTAB A&P. -wheezes, -rales, -rhonchi. Symmetrical chest rise. No increased work of breathing. No respiratory distress. Cardiac: bradycardic, +sm. Radial pulses intact and symmetrical. Abdominal: Nontender, nondistended, soft. BS present. Ext: Trace ankle edema. 5/5 strength to hip flexion, ankle dorsi/plantarflexion, land title examiner strength bilat. Sensation to soft touch intact. Results & Data Results & Data ([facility]) Vital Signs (Past 12 Hours) Vital Signs Temp Pulse Resp BP Pulse Ox O2 Del Method 10/28/22 14:05 93 Room Air 10/28/22 12:52 36.3 C L 44 L 20 117/66 98 Room Air Code Status & VTE Plan VTE Prophylaxis Plan VTE Prophylaxis will be ordered: Yes PG Care Time/CCT Total # of Minutes Spent Total Time Spent with Patient: Total time spent is greater than 50% in coordination of care (as documented) at patient's floor/unit and/or counseling patient: Coding Level of Care Code 53683 INT INP/OBS CARE 2/55MIN Diagnoses TIA (transient ischemic attack) G45.9 Murmur R01.1 BPH loc w/o ur obs/LUTS N40.0 Diabetes mellitus E11.9 Anemia D64.9 Junctional bradycardia R00.1
--- NOTE | 2022-10-28 19:11 | Electrocardiogram Report ---
Test Reason : Blood Pressure : / mmHG Vent. Rate : 047 BPM Atrial Rate : 040 BPM P-R Int : 000 ms QRS Dur : 106 ms QT Int : 498 ms P-R-T Axes : 000 -32 -38 degrees QTc Int : 440 ms Poor data quality, interpretation may be adversely affected Junctional rhythm with occasional Premature ventricular complexes Left axis deviation Abnormal ECG When compared with ECG of 01-JUL-2014 16:01, Junctional rhythm has replaced Sinus rhythm Nonspecific T wave abnormality, worse in Inferior leads Confirmed by Adrian Murphy ([id number]) on 10/28/2022 7:10:38 PM Referred By: Confirmed By:Armond Murphy
[2022-10-28] MEDS ORDERED: ACETAMINOPHEN 325 MG TAB PO PRN (22:27)
[2022-10-28] MEDS ORDERED: PHARMACIST DISCHARGE MED REC CONSULT PRN (22:27)
[2022-10-28] MEDS: MELATONIN 3 MG TAB PO PRN (23:20)
[2022-10-28] MEDS ORDERED: ATROPINE SO4 1 MG/ML 1ML VIAL IV STA (23:58)
[2022-10-29 07:15] LABS: Acanthocytes 2+; Basophils # (auto) 0.05 K/uL (0-0.2); Basophils % (auto) 0.9 %; Eosinophils % (auto) 1.8 %; Hematocrit (blood only) 35.7 % (40.1-51.0); Hemoglobin 12.7 g/dl (14.0-18.0); Immature Granulocytes # (auto) 0.02 K/uL (0.00-0.02); Immature Granulocytes % (auto) 0.4 %; Lymphocytes # (auto) 1.26 K/uL (1.2-3.4); Lymphocytes % (auto) 22.5 %; Mean Corpuscular Hemoglobin 32.3 pg (25.0-34.0); Mean Corpuscular Hgb Conc 35.6 g/dL (32.0-36.0); Mean Corpuscular Volume 90.8 fL (80.0-100.0); Monocytes # (auto) 0.68 K/uL (0.24-0.82); Monocytes % (auto) 12.1 %; Neutrophils # (auto) 3.49 K/uL (1.4-6.5); Neutrophils % (auto) 62.3 %; Platelet Count 132 K/uL (130-400); RDW Coefficient of Variation 13.5 % (11.5-14.5); RDW Standard Deviation 45.7 fL (36.4-46.3); Red Blood Count 3.93 M/uL (4.63-6.08)
[2022-10-29 07:16] LABS: Calcium 8.2 mg/dl (8.5-10.1); Magnesium 1.8 mg/dl (1.7-2.4)
[2022-10-29 07:22] LABS: BUN Creatinine Ratio 24.7 (10-20); Chol HDL Ratio 1.7 (0-5); Creatinine Clr Calc Pharmacy 62.3 ml/min; Est GFR (African American) 93.9 ml/min
[2022-10-29 08:00] LABS: Estimated Average Glucose 134 mg/dl; Hemoglobin A1C 6.3 % (4.5-5.6)
[2022-10-29] MEDS: predniSONE 5 MG TAB PO SCH (08:40)
[2022-10-29] MEDS: ASPIRIN 81 MG ECTAB PO SCH (08:40)
[2022-10-29] MEDS: CHOLECALCIFEROL 1,000 UNITS 25 MCG TAB PO SCH (08:40)
[2022-10-29] MEDS ORDERED: ENOXAPARIN INJ 40 MG/0.4 ML SYR SQ SCH (09:00)
[2022-10-29 09:11] LABS: Thyroid Stimulating Hormone 2.985 uIu/ml (0.300-4.500)
[2022-10-29 09:13] LABS: T4 Free Thyroxine 1.44 ng/dl (0.61-1.60)
--- NOTE | 2022-10-29 11:39 | Cardiology Consultation ---
Date of Consultation October 29, 2022 History of Present Illness Requesting Physician: Questionable junctional bradycardia, stroke Attending Physician: Uziel Jacobson MD History of Present Illness History is obtained from the chart as the patient was not very conversant this morning.It appears at home he had loss of speech where he knew what he wanted to say but could not consistent with a Broca's aphasia. This lasted about 4 minutes.It then improved and he went to bed but it sounds like when he awoke he had worsening aphasic symptoms. There is no history of atrial fibrillation that he is aware of his initial EKG was read as a junctional bradycardia but in fact I think it may be slow A. fib. If you look at the monitor he appears to be in atrial fibrillation with a slow ventricular response with PVCs and even at times some runs of ventricular ectopy. He denies any chest pain or chest pressure. Denies any palpitations or fluttering. He denies any presyncope syncope. Has a lower extremity edema. He did look reasonably good for his age. He denies any shortness of breath. Allergies Allergy/AdvReac Type Severity Reaction Status Date / Time ibuprofen Allergy Unknown swelling Verified 10/28/22 15:36 Home Medications Medication Instructions Recorded Confirmed Type tlrexxbw-hnp-lsoay acid 300 1 tab PO DAILY #30 tabs 06/13/19 10/28/22 Rx mcg-lycopene 600 mcg-lutein 300 mcg tablet (Centrum Silver Ultra Men's) prednisone 5 mg tablet 5 mg PO QAM 06/13/19 10/28/22 History risedronate 35 mg tablet 35 mg PO WK 06/13/19 10/28/22 History mometasone 0.1 % topical cream 1 applic topical DAILY #159 grams 06/07/22 Rx dutasteride 0.5 mg capsule 0.5 mg PO DAILY #90 caps 09/14/22 10/28/22 Rx (Avodart) cholecalciferol (vitamin D3) 25 25 mcg PO DAILY 10/28/22 10/28/22 History mcg (1,000 unit) tablet (Vitamin D3) nystatin-triamcinolone 100,000 1 applic topical BID PRN as needed 10/28/22 10/28/22 History unit/g-0.1 % topical cream Patient History Medical History Acute gout (07/12/14) Anemia Arthralgia Cellulitis of hand, right Crush injury to finger Degenerative arthritis of knee, bilateral Diabetes mellitus Fasciitis (07/01/14) Finger laceration Fracture of pelvis History of diverticulitis Hyperlipidemia Inflammatory polyarthropathy Left arm cellulitis Metabolic disorder Surgical History H/O hand surgery repaired Tenotomy flexor S/P cataract surgery bilateral Family History Brother Prostate cancer Sister Diabetes type 2 Denies family history of Ovarian cancer Myocardial infarction Breast cancer Colorectal cancer Social History Smoking Status: Never smoker Second Hand Exposure: No; Hx Alcohol Use: No Hx Substance Use: No Preferred Language: Yakut Communication Ability: Effective Candle Wicker Required: No Beliefs That Will Affect Care: None marital status: Current Living Situation: Spouse current occupational status: retired Feels Safe at Home: Yes Seatbelt Use: always Assistive Devices: Cane, Denture - Upper, Denture - Lower, Glasses and Walker Results & Data ([facility]) Vital Signs (Past 12 Hours) Vital Signs Temp Pulse Pulse Pulse Resp BP BP 10/29/22 08:11 10/29/22 10:38 10/29/22 07:37 36.3 C L 58 L 20 125/83 119/58 L 10/29/22 03:33 69 10/29/22 03:11 36.4 C L 52 L 18 119/70 10/29/22 01:44 Pulse Ox Pulse Ox O2 Del Method O2 Del Method 10/29/22 08:11 96 Room Air 10/29/22 10:38 Room Air 10/29/22 07:37 96 Room Air 10/29/22 03:33 10/29/22 03:11 94 Room Air 10/29/22 01:44 Room Air HEENT: 2+ carotid upstrokes nodes or carotid bruits Lungs: Clear to auscultation bilaterally no rales rhonchi or wheezing Heart: Irregularly irregular with a soft systolic ejection murmur at the right sternal border Abdomen: Soft nontender senna positive bowel sounds Extremities: No clubbing cyanosis or edema EKG appears to be slow atrial fibrillation with ventricular ectopy there were no discrete P waves to suggest AV block. In reviewing his telemetry strips here as well as with the telemetry staff upstairs on the second floor it appears he has atrial fibrillation. His echocardiogram was reviewed as well as the CT angio of his head and neck. IMPRESSIONS. 1. CVA 2. Likely atrial fibrillation with a controlled ventricular response on no AV kristen blockers 3. Low normal left ventricular systolic function without significant valvular heart disease 4. Concern for fibromuscular dysplasia in his carotid arteries but no significant carotid stenosis 5. Awaiting MRI of his brain 6. Hyponatremia 7. Right bundle branch block As I discussed with the nursing staff he needs an EKG when he returns from MRI. But overall this appears to be atrial fibrillation with a slow ventricular response. I do not think this represents a junctional bradycardia or complete heart block. There are no discrete P waves.As it sounds like he had an acute stroke and now his atrial fibrillation will need to be anticoagulated to reduce his risk of cardioembolic events. Given his anemia we will have to watch for additional bleeding symptoms. If you were to have lightheadedness or dizziness with activity or have unex plained syncope we would need to consider long-term monitoring. It does appear he has an underlying right bundle branch block on his EKG. These findings were discussed with the nursing staff. He will need aggressive medical therapy to reduce his risk of further cardiovascular events his LDL is very well controlled. And he does not appear hypertensive.
[2022-10-29] MEDS ORDERED: LORazepam 2 MG/1 ML VIAL IV STA (11:41)
[2022-10-29] MEDS ORDERED: LORazepam 2 MG/1 ML VIAL ONE (11:45)
--- NOTE | 2022-10-29 12:23 | Magnetic Resonance Report ---
MR brain wo con CLINICAL HISTORY: TIA eval TECHNIQUE: Multiplanar and multisequence MR images of the brain were obtained without intravenous con trast. Comparison: None available at the time of this dictation. FINDINGS: Exam is limited by patient motion, some sequences could not be obtained. No abnormal restricted diffu francine is identified. Foci of T2 and FLAIR hyperintensity are noted in the paraventricular areas consis tent with chronic small vessel ischemic disease. The ventricular system is normal in appearance. No m ass is seen. There is no mass effect or midline shift. No extra axial fluid collections are seen. Th e corpus callosum, pituitary gland, and cerebellar tonsils appear grossly unremarkable. Flow voids of the major intracranial arterial vessels are identified. The imaged portions of the para nasal sinuses, mastoid air cells, and orbits are unremarkable. IMPRESSION: Highly limited exam without evidence of acute abnormality. ACT 112: Negative or not required by law. Electronically signed by: Chano Potter M.D. 10/29/2022 12:22 PM
[2022-10-29] MEDS: APIXABAN 5 MG TABLET PO SCH ×2 (13:51→20:03)
--- NOTE | 2022-10-29 14:16 | Hospitalist Progress Note ---
Date of Service October 29, 2022 Assessment & Plan (1) TIA (transient ischemic attack): Plan: No definite evidence of CVA seen on brain MRI scan although there was a lot of movement. Head and neck CTA negative for any critical stenosis. His dysarthria has resolved. He agrees to systemic anticoagulation despite the risks of advanced age and steroid dependency. Cardiac echo reveals moderate left ventricular hypertrophy with normal ejection fraction and diastolic dysfunction as expected. He has evidence of mitral valve prolapse with moderate MR Seronegative polyarthritis Continue home low-dose prednisone 5 mg daily No acute change in management at this time Osteoporosis Continue risedronate 35 mg orally weekly BPH with LUTS Continue dutasteride 0.5 mg daily Bladder scan, follow-up for urinary retention No acute management at this time Past history of diabetes Noted on history, although glucose is 97 and patient has been on chronic steroids. Is not on home antilipemics at this time. Trend BMP daily, if hyperglycemic can add consistent carb diet and sliding scale coverage at that time DVT prophylaxis: Lovenox Disposition: PCU CODE STATUS: DNR, discussed with patient and family at bedside Diet: Heart healthy following speech eval, (2) Murmur: Plan: Cardiac echo report noted. No critical valve stenosis (3) BPH loc w/o ur obs/LUTS: Plan: Continue tamsulosin and dutasteride (4) Diabetes mellitus: Plan: No current history of type 2 diabetes. No current medications. Glucose is stable. (5) Anemia: Plan: Chronic. No evidence of acute blood loss at this time. Serial labs (6) Junctional bradycardia: Plan: This appears to be atrial fibrillation with slow ventricular rate at times. Blood pressure remained stable. He is on no calcium channel blockers or beta- blockers. Appreciate cardiology consultation Plan Eliquis has been started. OT and PT assessments ordered. Hopefully he can go home tomorrow, October 30 Admission and Anticipated Discharge Date Admission Date: October 28, 2022 Subjective Alert and oriented. and granddaughter are at the bedside. They believe his speech has returned to normal. Considerable movement limited brain MRI scan but no acute findings. Head and neck CTA negative for critical stenosis. Cardiac echo reveals moderate left ventricular hypertrophy with normal ejection fraction. Mitral valve prolapse noted with moderate MR. Cardiology consultation noted. It appears he has atrial fibrillation with slow ventricular rate at times. Systemic anticoagulation was recommended and the patient agrees to Eliquis therapy despite the risks associated with advanced age and prednisone dependency. He has no known bleeding diathesis and is not someone who falls at home frequently. Thyroid profile is normal. Review of Systems Review of Systems: Constitutional-no fever or chills ENT-no blurred vision, no double vision, no epistaxis, no sore throat Respiratory-no cough, no wheezing, no shortness of breath Cardiac-no palpitations, no chest pain, no syncope GI-no nausea, vomiting, diarrhea, melena, hematochezia -no urinary retention, no urinary incontinence, no dysuria, no hematuria Musculoskeletal-no joint pain, no muscle tenderness Skin-no bruising, no rashes, no pruritus Neuro-no isolated weakness, no paresthesia, no weakness Psych-no depression, no anxiety Physical Exam Physical Exam: General-alert and oriented x3, no fevers, no chills HEENT-head atraumatic and normocephalic, pupils equal and reactive to light, extraocular muscles intact Neck-no lymphadenopathy or thyromegaly, trachea midline Chest-clear to auscultation percussion. No rales wheezing or rhonchi Cardiac-irregular rhythm, normal S1 and S2. Satisfactory heart rate Abdomen-normal bowel sounds, nontender, no hepatosplenomegaly Extremities-no cyanosis, clubbing, or edema Neuro-cranial nerves II through XII intact, motor and sensory function within normal limits, strength symmetrical , no focal deficits. No dysarthria noted at the time of my examination Psych-normal affect, normal mood Results & Data Results & Data ([facility]) Vital Signs (Past 12 Hours) Vital Signs Temp Pulse Pulse Pulse Resp BP BP 10/29/22 12:12 36.5 C 57 L 20 135/74 10/29/22 08:00 46 L 10/29/22 08:11 10/29/22 10:38 10/29/22 07:37 36.3 C L 58 L 20 125/83 119/58 L 10/29/22 03:33 69 10/29/22 03:11 36.4 C L 52 L 18 119/70 Pulse Ox Pulse Ox O2 Del Method O2 Del Method 10/29/22 12:12 Room Air 10/29/22 08:00 10/29/22 08:11 96 Room Air 10/29/22 10:38 Room Air 10/29/22 07:37 96 Room Air 10/29/22 03:33 10/29/22 03:11 94 Room Air Laboratory Results 10/29/22 06:29 10/29/22 06:29 PG Care Time/CCT Total # of Minutes Spent Total Time Spent with Patient: Total time spent is greater than 50% in coordination of care (as documented) at patient's floor/unit and/or counseling patient: Coding Level of Care Code 28713 SUB INP/OBS CARE 3/50MIN Diagnoses TIA (transient ischemic attack) G45.9 Murmur R01.1 BPH loc w/o ur obs/LUTS N40.0 Diabetes mellitus E11.9 Anemia D64.9 Junctional bradycardia R00.1
[2022-10-29] MEDS ORDERED: AVODART 0.5 MG PO SCH (14:30)
[2022-10-29] MEDS: [UNRECOGNIZED DRUG - REMARK] PO SCH (14:45)
--- NOTE | 2022-10-29 15:19 | Electrocardiogram Report ---
Test Reason : Blood Pressure : / mmHG Vent. Rate : 042 BPM Atrial Rate : 039 BPM P-R Int : 000 ms QRS Dur : 118 ms QT Int : 506 ms P-R-T Axes : 000 -24 033 degrees QTc Int : 422 ms Slow Afib Premature ventricular complexes Non-specific intra-ventricular conduction delay Nonspecific ST and T wave abnormality Abnormal ECG When compared with ECG of 28-OCT-2022 13:39, Non-specific change in ST segment in Inferior leads Non-specific change in ST segment in Lateral leads Afib is present Confirmed by Adam Dias ([id number]) on 10/29/2022 3:18:35 PM Referred By: REFERRED SELF Confirmed By:Adam Dias
--- NOTE | 2022-10-29 15:35 | Electrocardiogram Report ---
Test Reason : Blood Pressure : / mmHG Vent. Rate : 055 BPM Atrial Rate : 054 BPM P-R Int : 000 ms QRS Dur : 112 ms QT Int : 446 ms P-R-T Axes : 000 -27 098 degrees QTc Int : 426 ms Poor data quality, interpretation may be adversely affected Atrial fibrillation with slow ventricular response Non-specific intra-ventricular conduction delay Abnormal ECG When compared with ECG of 28-OCT-2022 14:41, (unconfirmed) T wave inversion no longer evident in Inferior leads Confirmed by Adam Dias ([id number]) on 10/29/2022 3:35:32 PM Referred By: REFERRED SELF Confirmed By:Adam Dias
[2022-10-29] MEDS: MELATONIN 3 MG TAB PO PRN (20:45)
[2022-10-30 05:37] LABS: BUN Creatinine Ratio 28.4 (10-20); Creatinine Clr Calc Pharmacy 68.2 ml/min; Est GFR (African American) 97.5 ml/min; Est GFR (Non-African American) 84.1 ml/min; Potassium 3.8 mmol/L (3.5-5.1)
[2022-10-30] MEDS: CHOLECALCIFEROL 1,000 UNITS 25 MCG TAB PO SCH (08:45)
[2022-10-30] MEDS: APIXABAN 5 MG TABLET PO SCH (08:45)
[2022-10-30] MEDS: predniSONE 5 MG TAB PO SCH (08:46)
[2022-10-30] MEDS: ASPIRIN 81 MG ECTAB PO SCH (08:46)
[2022-10-30] MEDS: [UNRECOGNIZED DRUG - REMARK] PO SCH (08:47)
--- NOTE | 2022-10-30 11:36 | Hospitalist Progress Note ---
Date of Service October 30, 2022 Assessment & Plan (1) TIA (transient ischemic attack): Plan: No definite evidence of CVA seen on brain MRI scan although there was a lot of movement. Head and neck CTA negative for any critical stenosis. His dysarthria has resolved. He agrees to systemic anticoagulation despite the risks of advanced age and steroid dependency. However, Eliquis has been placed on hold since he may need permanent cardiac pacemaker insertion. Cardiac echo reveals moderate left ventricular hypertrophy with normal ejection fraction and diastolic dysfunction as expected. He has evidence of mitral valve prolapse with moderate MR (2) Murmur: Plan: Cardiac echo report noted. No critical valve stenosis (3) BPH loc w/o ur obs/LUTS: Plan: Continue tamsulosin and dutasteride (4) Diabetes mellitus: Plan: No current history of type 2 diabetes. No current medications. Glucose is stable. (5) Anemia: Plan: Chronic. No evidence of acute blood loss at this time. Serial labs (6) Junctional bradycardia: Plan: This appears to be atrial fibrillation with slow ventricular rate at times. Nursing staff states his heart rate drops into the 20s at time. Blood pressure is on the low side but acceptable. Stable. He is on no calcium channel blockers or beta-blockers. Appreciate cardiology consultation. Awaiting their determination as to whether he should have a permanent cardiac pacemaker or not Plan Eliquis was started but then placed on hold pending decision regarding permanent cardiac pacemaker insertion. OT and PT assessments ordered. Anticipate eventual discharge back to home Admission and Anticipated Discharge Date Admission Date: October 30, 2022 Subjective Alert and oriented. TIA symptoms have resolved. However, his heart rate drops into the 20s per nursing staff and telemetry. Considering he had a TIA, we need to probably consider this symptomatic bradycardia. I believe he would benefit from permanent pacemaker implant. Eliquis is placed on hold. Cardiology has been notified by nursing staff. I will call his , Saray, and update her today. Review of Systems Review of Systems: Constitutional-no fever or chills ENT-no blurred vision, no double vision, no epistaxis, no sore throat Respiratory-no cough, no wheezing, no shortness of breath Cardiac-no palpitations, no chest pain, no syncope GI-no nausea, vomiting, diarrhea, melena, hematochezia -no urinary retention, no urinary incontinence, no dysuria, no hematuria Musculoskeletal-no joint pain, no muscle tenderness Skin-no bruising, no rashes, no pruritus Neuro-no isolated weakness, no paresthesia, no weakness Psych-no depression, no anxiety Physical Exam Physical Exam: General-alert and oriented x3, no fevers, no chills HEENT-head atraumatic and normocephalic, pupils equal and reactive to light, extraocular muscles intact Neck-no lymphadenopathy or thyromegaly, trachea midline Chest-clear to auscultation percussion. No rales wheezing or rhonchi Cardiac-irregular rhythm, normal S1 and S2. Bradycardic heart rate Abdomen-normal bowel sounds, nontender, no hepatosplenomegaly Extremities-no cyanosis, clubbing, or edema Neuro-cranial nerves II through XII intact, motor and sensory function within normal limits, strength symmetrical , no focal deficits. No dysarthria noted at the time of my examination Psych-normal affect, normal mood Results & Data Results & Data ([facility]) Vital Signs (Past 12 Hours) Vital Signs Temp Pulse Pulse Resp BP BP Pulse Ox 10/30/22 05:30 40 L 18 97/57 L 92 10/30/22 05:33 36 L 10/30/22 04:41 36.3 C L 51 L 18 117/50 L 96 10/30/22 03:40 36.6 C 51 L 16 117/50 L 96 10/29/22 23:46 54 L O2 Del Method 10/30/22 05:30 Room Air 10/30/22 05:33 10/30/22 04:41 Room Air 10/30/22 03:40 Room Air 10/29/22 23:46 PG Care Time/CCT Total # of Minutes Spent Total Time Spent with Patient: Total time spent is greater than 50% in coordination of care (as documented) at patient's floor/unit and/or counseling patient: Coding Level of Care Code 00661 SUB INP/OBS CARE 3/50MIN Diagnoses TIA (transient ischemic attack) G45.9 Murmur R01.1 BPH loc w/o ur obs/LUTS N40.0 Diabetes mellitus E11.9 Anemia D64.9 Junctional bradycardia R00.1
--- NOTE | 2022-10-30 13:06 | Cardiology Progress Note ---
Date of Service October 30, 2022 Assessment & Plan Admission and Anticipated Discharge Date Admission Date: October 30, 2022 Subjective He has much more conversant today. His sleep speech is not slurred. He denies any clumsiness in his right hand or left hand today. Denies any lightheadedness or dizziness. He sitting his color looks better. Denies any chest pain or chest pressure. See the impressions for further history with regards to lightheadedness and weakness at home likely related to bradycardia. Results & Data ([facility]) Vital Signs (Past 12 Hours) Vital Signs Temp Pulse Pulse Pulse Resp BP BP 10/30/22 09:00 10/30/22 12:00 36.3 C L 51 L 18 116/67 10/30/22 07:30 36.5 C 57 L 20 105/77 10/30/22 05:30 40 L 18 97/57 L 10/30/22 05:33 36 L 10/30/22 04:41 36.3 C L 51 L 18 117/50 L 10/30/22 03:40 36.6 C 51 L 16 117/50 L Pulse Ox O2 Del Method O2 Flow Rate 10/30/22 09:00 95 Room Air 10/30/22 12:00 98 Room Air 10/30/22 07:30 96 Nasal Cannula 2 10/30/22 05:30 92 Room Air 10/30/22 05:33 10/30/22 04:41 96 Room Air 10/30/22 03:40 96 Room Air HEENT: 2+ carotid upstrokes nodes or carotid bruits Lungs: Clear to auscultation bilaterally no rales rhonchi or wheezing Heart: Regular but bradycardic with a soft systolic ejection murmur at the right sternal border Abdomen: Soft nontender senna positive bowel sounds Extremities: No clubbing cyanosis or edema EKG appears to be slow atrial fibrillation with ventricular ectopy there were no discrete P waves to suggest AV block. In reviewing his telemetry strips here as well as with the telemetry staff upstairs on the second floor it appears he has atrial fibrillation and also at times has a junctional escape rhythm His echocardiogram was reviewed as well as the CT angio of his head and neck. IMPRESSIONS. 1. CVA 2. atrial fibrillation with a slow ventricular response on no AV kristen blockers 2b. Intermittent junctional escape rhythm 3. Low normal left ventricular systolic function without significant valvular heart disease 4. Concern for fibromuscular dysplasia in his carotid arteries but no significant carotid stenosis 5. Awaiting MRI of his brain 6. Hyponatremia 7. Right bundle branch block Grey's family was present for today's conversation and his speech is significantly better than yesterday. He was therefore able to participate in the history today. In obtaining a history it sounds like he has had episodes of weakness at home where his legs just feel like they are going give out or he is mildly lightheaded and I wonder if he is not having episodes of a junctional rhythm that slow at home. Additionally if you look at the monitor he is having junctional rhythms today as well and his heart rates at times are in the 40s and 50s. At night he sometimes in the 30s. Given this he needs a pacemaker as we can prevent his heart rate from going lower than 60 bpm, will improve his perfusion to his brain and reduce his risk of falls as well. My guess is he is probably in atrial fibrillation all the time and the junctional rhythm is just a function of complete heart block. It will be up to Dr. Murphy whether he wants to decide to place a dual-chamber device versus single-chamber device. If we think he is chronically in atrial fibrillation then a VVI device with His pacing would be best. He did receive a dose of anticoagulation this morning. That will last about 12 hours. I think we are better off not starting a heparin drip only to stop it 4 hours before his pacemaker is implanted. Once his pacemaker is implanted Dr. Murphy will notify us when we can restart his anticoagulation. He is over the age of 80 but his creatinine is normal and his weight is greater than 60 kg, therefore he should be on 5 mg twice a day of apixaban. I did discuss with his family the risk of recurrent stroke if he is not anticoagulated. We discussed the idea of risk and benefit with regards to anticoagulation specifically the benefit of reducing the risk of stroke with the risk of bleeding or falls and bleeding associated with falls. Discussed the risk and benefits of a pacemaker implantation. Risks including but not limited to bleeding at the incision or infection at this incision site. Pneumothorax or damage to his subclavian vein or subclavian artery. Poking a hole in his heart and needing emergent drainage of his pericardial effusion. Heart attack stroke and were discussed all those risks are less than 1%. We will put him on the schedule for tomorrow. He will be n.p.o. EO after midnight. If he is having periods of bradycardia and is asymptomatic I would not get overly concerned. If he is symptomatic options include low-dose dopamine to try to increase his heart rate. You could try atropine in the short-term but it may not be effective given that this is a conduction disorder below the AV node. This was discussed with Dr. Murphy by phone today as well as the patient's family and the nursing staff. Long-term is probably easier if he is followed by [facility] cardiology in their [place] office. As Grey is still driving to his office appointments.
[2022-10-30] MEDS: MELATONIN 3 MG TAB PO PRN (20:44)
[2022-10-31 05:26] LABS: Calcium 7.8 mg/dl (8.5-10.1); Potassium 3.6 mmol/L (3.5-5.1)
[2022-10-31 05:32] LABS: BUN Creatinine Ratio 25.6 (10-20); Creatinine Clr Calc Pharmacy 58.7 ml/min; Est GFR (African American) 91.6 ml/min; Est GFR (Non-African American) 79.1 ml/min
[2022-10-31] MEDS ORDERED: LIDOCAINE 1% LOCAL 20 ML VIAL ONE (09:03)
[2022-10-31] MEDS ORDERED: WATER, STERILE FOR INJ 10 ML VIAL ONE (09:03)
[2022-10-31] MEDS ORDERED: BUPIVACAINE 0.25% 30 ML VIAL ONE (09:03)
[2022-10-31] MEDS ORDERED: VANCOMYCIN HCL 1000MG/20ML VIAL ONE (09:03)
[2022-10-31] MEDS ORDERED: fentaNYL citrate 100 MCG/2 ML VIAL ONE (09:05)
[2022-10-31] MEDS ORDERED: ceFAZolin 330 MG/ML 1 GM VIAL ONE (09:05)
[2022-10-31] MEDS ORDERED: MIDAZOLAM HCL 5 MG/ML 1 ML VIAL ONE (09:05)
--- NOTE | 2022-10-31 09:09 | Pre Anesthesia Assessment ---
Date of Service October 31, 2022 Pre Sedation Assessment Vital Signs Temp Pulse Pulse Pulse Resp BP BP 10/31/22 08:02 36.6 C 47 L 17 110/57 L 10/31/22 03:03 36.3 C L 48 L 123/75 10/31/22 00:00 54 L 10/30/22 23:00 36.6 C 56 L 20 130/71 10/30/22 20:00 62 10/30/22 19:00 36.7 C 50 L 20 115/67 10/30/22 18:15 47 L 10/30/22 15:39 36.5 C 49 L 18 129/71 10/30/22 12:00 36.3 C L 51 L 18 116/67 Pulse Ox O2 Del Method 10/31/22 08:02 93 Room Air 10/31/22 03:03 95 Room Air 10/31/22 00:00 10/30/22 23:00 Room Air 10/30/22 20:00 10/30/22 19:00 96 Room Air 10/30/22 18:15 10/30/22 15:39 99 Room Air 10/30/22 12:00 98 Room Air Cardiovascular + bradycardic and + irregularly irregular Respiratory + respiratory effort normal Pre-Sedation Airway Assessment Smoking Status: Never smoker Hx Sleep Apnea: No Hx Difficult Intubation: No Short, Thick Neck: No Thyromental Distance: > or= 3.5 Finger Breadths Oral Cavity: + Dentures Mallampati Class: IV ASA: ASA4 NPO Status Date of Last Intake of Fluids: 10/30/22 Date of Last Intake of Solid Food: 10/30/22 Procedure Planning Contraindications for Sedation: none Current Medications Reviewed: Yes Notes The planned sedation has been discussed with the patient. Informed Consent was obtained. I have identified the patient, determined the appropriateness of sedation and have assessed the patient immediately prior to the procedure. All medicine(s) and interventions are by my order.
--- NOTE | 2022-10-31 10:02 | Cardiology Progress Note ---
Date of Service October 31, 2022 Assessment & Plan (1) Junctional bradycardia: Plan: IMPRESSIONS. 1. CVA 2. atrial fibrillation with a slow ventricular response on no AV kristen blockers 2b. Intermittent junctional escape rhythm 3. Low normal left ventricular systolic function without significant valvular heart disease 4. Concern for fibromuscular dysplasia in his carotid arteries but no significant carotid stenosis 5. Awaiting MRI of his brain 6. Hyponatremia 7. Right bundle branch block Grey denies any weakness or lightheadedness today but has been experiencing these symptoms at home. The concern is that he is having episodes of a junctional rhythm at home. His rhythm on the monitor is as slow as 20s with sleep. Per Dr. Dias's earlier note, he is likely in atrial fibrillation all the time and the junctional rhythm is just a function of complete heart block. It will be up to Dr. Murphy whether he wants to decide to place a dual-chamber device versus single-chamber device. If we think he is chronically in atrial fibrillation then a VVI device with His pacing would be best. His anticoagulation can be re started when ok with Dr. Murphy. He does not meet criteria for reduced dosing on the Eliquis. Mr. Ibarra is on for a pacemaker this morning. This was discussed in detail by Dr. Dias with Mr Ibarra and his family over the weekend. He has been NPO since midnight. Long-term it is probably easier if he is followed by [facility] cardiology in their [place] office, as Grey is still driving to his office appointments. Admission and Anticipated Discharge Date Admission Date: October 30, 2022 Subjective Mr. Ibarra feels well today. His heart rate was ranging 20s-40s overnight per nursing. No events. He denies sob, chest pain, palpitations, weakness or dizziness. Review of Systems Review of Systems: All systems reviewed & are unremarkable except as noted in HPI & below Physical Exam Constitutional: WD/WN, vitals as above Respiratory: normal respiratory effort, lungs clear to auscultation Cardiovascular: Rate/Rhythm: regular rate and regular rhythm Heart Sounds: + murmur Extremities: no edema Skin: no rashes, warm and dry Neurologic: moves all extremities and awake Psychiatric: A+Ox3, euthymic affect Results & Data ([facility]) Vital Signs (Past 12 Hours) Vital Signs Temp Pulse Pulse Resp BP BP Pulse Ox 10/31/22 08:02 36.6 C 47 L 17 110/57 L 93 10/31/22 03:03 36.3 C L 48 L 123/75 95 10/31/22 00:00 54 L 10/30/22 23:00 36.6 C 56 L 20 130/71 O2 Del Method 10/31/22 08:02 Room Air 10/31/22 03:03 Room Air 10/31/22 00:00 10/30/22 23:00 Room Air
--- NOTE | 2022-10-31 13:02 | Electrophysiology Report ---
Date of Service October 31, 2022 Electrophysiology Procedure Electrophysiology Procedure Report Procedure performed: Implantation of singlel-chamber permanent pacemaker Staff hook and eye machine operator: Adrian Murphy MD Indication: The patient is an 87-year-old gentleman who presented with newly diagnosed atrial fibrillation with slow ventricular rate. Based on reported symptoms and heart rate he was felt to have symptomatic nonreversible AV node dysfunction. Procedure in detail: The patient was informed of the risks benefits and alternatives to the intended procedure and he wished to proceed. He was taken to the electrophysiology suite in a fasting state. A preoperative antibiotic had been administered. The patient was monitored electrocardiographically throughout today's procedure and conscious sedation was administered per protocol. The left upper pectoral area is prepped and draped in usual sterile fashion. This area was anesthetized using subcutaneous administration of a xylocaine solution. An incision was made at this site and carried down to the prepectoralis fascia using sharp dissection. Electrocautery was also employed for dissection as well as for hemostasis. A device pocket was fashioned tissues above the pectoralis muscle. Subsequent to this maneuver the left axillary vein was accessed using modified Seldinger technique. A sheath was placed over guidewire this site used facilitate passage of the guiding catheter for mapping of the interventricular septum. Once an adequate location was identified a pacing lead was advanced into the interventricular septum. Adequate sensing and threshold parameters were obtained prior to removal of the guiding catheter. The proximal portion lead was then sutured to prepectoralis fascia using nonabsorbable suture. The device pocket was irrigated with antibiotic solution. The device was placed inside an antibiotic impregnated pouch. The device, lead and pouch were then placed in the pocket and the pocket was closed in 3 layers of absorbable suture. Steri- Strips and sterile dressing were applied. The device was tested noninvasively prior to conclusion the procedure. The patient tolerated procedure well there no immediate complications. Equipment used: New pulse generator: Loom Winder Tender [employer]. Model number: [id number] serial number [id number] Right ventricular lead: Loom Winder Tender [employer]. Model number: [id number] serial number L [id number] Measured data: Right ventricular lead: R-waves measured 6.7 mV. Pacing threshold was 1.3 volts at 0.5 milliseconds with a pacing impedance of 765 Ohms Impression: Successful implantation of single-chamber permanent pacemaker MNP Electrophysiology codes Pacing Procedure 1: Pacin Insert/Replace Pacer V PG Moderate Sedation Codes Moderate Sedation Codes Procedure 1: Sedation/Anesthesia: 49865 Mod Sedation by the same physician;Init15 Min Child Age 5 & Up Procedure 2: Sedation/Anesthesia: 75755 Mod Sedation by the same physician; Ea [id number] Minutes
--- NOTE | 2022-10-31 13:02 | Post Anesthesia Assessment ---
Date of Service October 31, 2022 Post Sedation Assessment Vital Signs Temp Pulse Pulse Pulse Resp BP BP 10/31/22 09:10 55 L 16 134/68 10/31/22 08:00 58 L 10/31/22 08:02 36.6 C 47 L 17 110/57 L 10/31/22 03:03 36.3 C L 48 L 123/75 10/31/22 00:00 54 L 10/30/22 23:00 36.6 C 56 L 20 130/71 10/30/22 20:00 62 10/30/22 19:00 36.7 C 50 L 20 115/67 10/30/22 18:15 47 L 10/30/22 15:39 36.5 C 49 L 18 129/71 Pulse Ox O2 Del Method 10/31/22 09:10 94 Room Air 10/31/22 08:00 10/31/22 08:02 93 Room Air 10/31/22 03:03 95 Room Air 10/31/22 00:00 10/30/22 23:00 Room Air 10/30/22 20:00 10/30/22 19:00 96 Room Air 10/30/22 18:15 10/30/22 15:39 99 Room Air Recovery Score Activity: Moves 4 extremities Respiration: Deep Breath/Cough Circulation: +/-20% PreAnes Value Consciousness: Fully Awake Oxygen Saturation: > 92% On Room Air Discharge Sedation Level of Care: Fast Track Phase II Post Sedation Plan On clinical assessment, the patient appears to have tolerated the sedation without complications. Patient is recovering as anticipated. Patient will continue to be monitored by nursing and may be discharged when sedation discharge criteria are met per below protocol. Upon Completions of procedure up to 15 minutes continue every 5 minute vital signs and the P.A.R. score; then discharge to a Phase I or Fast Track to Phase II per the following guidelines: * Discharge Patient to appropriate Phase II area if PAR is 8 or greater or return to pre- procedure baseline. The post - procedure orders will be as directed. * If PAR score is less than 8 or not return to pre-procedure baseline then patient will follow Phase I monitoring till PAR is reached for Phase II. The Phase I may be done in procedure room or may call to secure a Phase I area. * If naloxone or flumazenil are used for reversal, hold in Phase I for continued monitoring from when last reversal dose was given for a minimum of 60 minutes or longer pending the nurse and/or physician discretion of patient condition before discharge to Phase II. Please call the Sedation Physician to re-evaluate and complete post-note for discharge to Phase II area. Do NOT discharge from procedure sedation or Phase 1 until post- sedation evaluation note is complete by procedure /sedation MD Sedation Discharge Instructions to be given to the patient at discharge to home.
[2022-10-31] MEDS: ASPIRIN 81 MG ECTAB PO SCH (14:17)
[2022-10-31] MEDS: predniSONE 5 MG TAB PO SCH (14:17)
[2022-10-31] MEDS: CHOLECALCIFEROL 1,000 UNITS 25 MCG TAB PO SCH (14:17)
[2022-10-31] MEDS: [UNRECOGNIZED DRUG - REMARK] PO SCH (14:18)
[2022-10-31] MEDS ORDERED: predniSONE 10 MG TABLET PO STA (17:21)
--- NOTE | 2022-10-31 18:28 | Electrocardiogram Report ---
Test Reason : Blood Pressure : / mmHG Vent. Rate : 060 BPM Atrial Rate : 056 BPM P-R Int : 000 ms QRS Dur : 140 ms QT Int : 506 ms P-R-T Axes : 000 -34 112 degrees QTc Int : 506 ms Ventricular-paced rhythm Abnormal ECG When compared with ECG of 29-OCT-2022 12:33, Electronic ventricular pacemaker has replaced Atrial fibrillation Confirmed by Adrian Murphy ([id number]) on 10/31/2022 6:27:40 PM Referred By: REFERRED SELF Confirmed By:Armond Murphy
[2022-10-31] MEDS ORDERED: OLANZapine 10 MG/2.1 ML SDV IM STA (19:01)
[2022-10-31] MEDS: MELATONIN 3 MG TAB PO SCH (19:46)
--- NOTE | 2022-10-31 19:55 | Hospitalist Progress Note ---
Date of Service October 31, 2022 Assessment & Plan (1) TIA (transient ischemic attack): Plan: Several minute episode of aphasia/dysarthria at home that resolved by time of presentation. never had any limb weakness. full TIA w/u negative including MRI brain and CTA head/neck (?fibromuscular dysplasia of ICAs b/l). echo w/o thrombus. at time of presentation he had a.fib with slow ventricular response off of any AV kristen agent. suspect that indeed this was a TIA event likely due to a.fib. anticoagulation to be initiated once OK with Dr Murphy. 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 Appreciate cardiology consultation. s/p pacemaker placement today by Dr Murphy. TSH wnl. (3) Atrial fibrillation with slow ventricular response: Plan: s/p permanent pacemaker placement today by Dr Murphy. start anticoagulation when ok with Dr Murphy (Eliquis?). (4) BPH loc w/o ur obs/LUTS: Plan: Continue tamsulosin and dutasteride (5) Diabetes mellitus: Plan: Hba1c 6.3%. Pre-DM / borderline full-blown T2DM. Diet control for now. (6) Anemia: Plan: Chronic. Check Fe studies, B12, folate in am. (7) Acute metabolic encephalopathy: Plan: due to #1? hospital psychosis? combination? zyprexa 2.5mg IM x 1 given about 1900 tonight to maintain safety and to prevent harm to pacemaker site, etc. (8) Chronic steroid use: Plan: 5mg/day for #9 below. follows with [facility]. Give stress dose steroids today - give extra 30mg today, extra 20mg tomorrow, then back to nl dosing. (9) Inflammatory polyarthropathy: Plan PT/OT evals to determine disposition updated at bedside Admission and Anticipated Discharge Date Admission Date: October 30, 2022 Subjective saw patient late afternoon after his pacemaker placement he had just finished eating his was at bedside she reported that since admission he has been confused the patient hadn't realized he underwent pacer placement today just before shift change at 7pm the patient became very agitated and even more confused he had pulled off his left arm sling, took off his clothes, was getting out of bed, was agitated, etc Review of Systems Review of Systems: Unobtainable due to cognitive status Physical Exam Physical Exam: gen - NAD, confused HENT - MMM, hearing impaired neck - no JVD musculo - left arm in sling chest - pacer site L chest with dressing intact heart - RRR, s1 s2, 2/6 systolic murmur LLSB lungs - CTA b/l abd - soft NT ND BS+ ext - no edema, pulses 2+ b/l psych - confused Results & Data Results & [facility] ([facility]) Vital Signs (Past 12 Hours) Vital Signs Temp Pulse Pulse Pulse Resp BP BP 10/31/22 15:37 36.4 C L 61 18 119/77 10/31/22 13:45 36.4 C L 61 17 136/90 10/31/22 13:25 60 18 142/79 H 10/31/22 13:10 60 18 156/88 H 10/31/22 09:10 55 L 16 134/68 10/31/22 08:00 58 L 10/31/22 08:02 36.6 C 47 L 17 110/57 L Pulse Ox O2 Del Method 10/31/22 15:37 92 Room Air 10/31/22 13:45 97 Room Air 10/31/22 13:25 96 Room Air 10/31/22 13:10 97 Room Air 10/31/22 09:10 94 Room Air 10/31/22 08:00 10/31/22 08:02 93 Room Air Laboratory Results Laboratory Results - last 24 hr 10/31/22 04:46 Sodium 131 L Potassium 3.6 Chloride 99 Carbon Dioxide 29 Anion Gap 3 BUN 22 Creatinine 0.86 Est Cr Clr Drug Dosing 58.7 Est GFR ( Amer) 91.6 Est GFR (Non-Af Amer) 79.1 BUN/Creatinine Ratio 25.6 H Glucose 105 H Calcium 7.8 L PG Care Time/CCT Total # of Minutes Spent Total Time Spent with Patient: Total time spent is greater than 50% in coordination of care (as documented) at patient's floor/unit and/or counseling patient: Coding Level of Care Code 99577 SUB INP/OBS CARE 2/35MIN Diagnoses TIA (transient ischemic attack) G45.9 Junctional bradycardia R00.1 Atrial fibrillation with slow ventricular response I48.91 BPH loc w/o ur obs/LUTS N40.0 Diabetes mellitus E11.9 Anemia D64.9 Acute metabolic encephalopathy G93.41 Chronic steroid use Inflammatory polyarthropathy M06.4
[2022-10-31] MEDS ORDERED: ceFAZolin 1000MG 1,000 MG/7.5 ML SYR IV ONE (20:00)
[2022-11-01 05:18] LABS: Calcium 8.4 mg/dl (8.5-10.1)
[2022-11-01 05:24] LABS: BUN Creatinine Ratio 25.9 (10-20); Creatinine Clr Calc Pharmacy 62.3 ml/min; Est GFR (African American) 93.9 ml/min
[2022-11-01 05:34] LABS: Ferritin 303.4 ng/ml (8-388)
--- NOTE | 2022-11-01 07:56 | XRay Report ---
XR chest 2V PA/lateral HISTORY: 87 years-old Male EXACT TIME ORDERED Evaluate for pneumothorax and l status post placement of a left subclavian pacer COMPARISON: Chest radiographs October 28, 2022 TECHNIQUE: AP and lateral views of the chest FINDINGS: Cardiac silhouette is enlarged. Pulmonary vascular congestion. Status post placement of a left subcla vian pacer. No postprocedural pneumothorax. Trace pleural effusions with mild bibasilar densities. Mi ld left hemidiaphragmatic elevation. Degenerative changes of the shoulders and spine. IMPRESSION: 1. Cardiomegaly with pulmonary vascular congestion. 2. Status post placement of a single lead left subclavian pacer. No postprocedural pneumothorax ident ified. 3. Trace pleural effusions with mild bibasilar atelectasis. ACT 112: Negative or not required by law. The above report was generated using voice recognition software. It may contain grammatical, syntax o r spelling errors. Electronically signed by: Sadi Marsh M.D. 11/01/2022 7:54 AM
[2022-11-01] MEDS: ASPIRIN 81 MG ECTAB PO SCH (08:44)
[2022-11-01] MEDS: CHOLECALCIFEROL 1,000 UNITS 25 MCG TAB PO SCH (08:44)
[2022-11-01] MEDS: predniSONE 5 MG TAB PO SCH (08:44)
[2022-11-01] MEDS: [UNRECOGNIZED DRUG - REMARK] PO SCH (08:45)
--- NOTE | 2022-11-01 12:06 | Cardiology Progress Note ---
Date of Service November 01, 2022 Assessment & Plan (1) Junctional bradycardia: Plan: Status post implantation of single-chamber pacemaker with left bundle pacing lead. Normal device function on interrogation today. Patient should refrain from lifting left arm above the shoulder behind the neck for 6 weeks Keep the wound dry and Steri-Strips intact until follow-up in our clinic next week (I can arrange) I would hold systemic anticoagulation for 2 more days. Would seem reasonable to start anticoagulation evening November 03 Admission and Anticipated Discharge Date Admission Date: October 30, 2022 Subjective The patient did not complain of pain at the device implant site today. However, he was somewhat confused Physical Exam Physical Exam: Patient was confused but conversant. Evaluation of the device implant site reveals significant ecchymosis and a very small hematoma just under the incision. No active drainage. No erythema. Results & Data ([facility]) Vital Signs (Past 12 Hours) Vital Signs Temp Pulse Pulse Resp BP Pulse Ox O2 Del Method 11/01/22 11:39 36.6 C 66 18 129/75 98 Room Air 11/01/22 10:14 64 11/01/22 07:00 36.5 C 86 20 134/91 90 Room Air 11/01/22 00:33 70 Diagnostic Findings Chest x-ray demonstrated good lead position without pneumothorax I performed a complete device interrogation which revealed adequate sensing and threshold on the ventricular lead. Normal device function.
--- NOTE | 2022-11-01 14:34 | Electrocardiogram Report ---
Test Reason : Blood Pressure : / mmHG Vent. Rate : 085 BPM Atrial Rate : 394 BPM P-R Int : 000 ms QRS Dur : 112 ms QT Int : 444 ms P-R-T Axes : 000 246 154 degrees QTc Int : 528 ms Suspect arm lead reversal, interpretation assumes no reversal Atrial fibrillation with frwquent and consecutive ventricular ectopy (possible aberrancy) Right axis deviation Abnormal ECG Confirmed by Adrian Murphy ([id number]) on 11/01/2022 2:34:07 PM Referred By: REFERRED SELF Confirmed By:Armond Murphy
--- NOTE | 2022-11-01 15:00 | Pharmacy Report ---
- Date of Service November 01, 2022 - Pharmacy CVA/TIA Medication Review Medications to Prevent Stroke handout has been added to the patients discharge packet. Antiplatelet(s) * Aspirin 81 mg by mouth daily Cholesterol * High intensity statin deferred due to age >75 DVT Prophylaxis * SCD knee Therapeutic Anticoagulation * Hx Afib/Aflutter noted, and patient will be receiving Apixaban 5 mg by mouth twice daily starting 11/03/22 following PPM placement Type 2 Diabetes * Patient has T2DM, but per Dr. Carlson, a diabetes medication with proven CVD benefit will be deferred to their outpatient provider due to familiarity with risks/benefits of such therapies. "Medications to prevent stroke" handout has already been added to the patient's discharge packet, which instructs the patient to follow up with their outpatient provider to evaluate which diabetes medication with proven CVD benefit is best for them
[2022-11-01] MEDS ORDERED: OLANZapine 10 MG/2.1 ML SDV IM PRN (20:38)
[2022-11-01] MEDS ORDERED: QUEtiapine FUMARATE 25 MG TABLET PO SCH (21:00)
[2022-11-01] MEDS ORDERED: HALOPERIDOL LACTATE 5 MG/ML 1 ML VIAL IM STA ×2 (21:32→23:05)
[2022-11-01] MEDS: MELATONIN 3 MG TAB PO SCH (22:03)
--- NOTE | 2022-11-01 22:20 | CT Scan Report ---
CT head/brain wo con CLINICAL HISTORY: dysarthria, confusion; eval CVA Technique: Contiguous axial CT images of the head were acquired from the base of the skull to the james dalia without intravenous contrast administration. Images were viewed in brain, subdural and bone windo ws. Automated dose lowering techniques and/or adjustment according to patient size were utilized for this exam. Comparison: Comparison is made to CT head 10/28/2022 Findings: Areas of decreased attenuation are present in the periventricular and subcortical white matter bilate rally consistent with small vessel ischemic disease. Generalized cerebral atrophy with commensurate e nlargement of the ventricles, sulci, and cisterns is also present. There is no acute intracranial hem orrhage or evidence of acute territorial infarction. No shift of the midline structures, mass effect, or extra-axial abnormalities are shown. Atherosclerotic calcifications are present in the intracran ial segments of the internal carotid arteries. Calcification in the midline of the posterior fossa i s unchanged. Imaged portions of the paranasal sinuses and mastoid air cells are clear. The orbits appear normal. There are no acute fractures of the calvaria or scalp swelling. Impression: No acute intracranial hemorrhage, no evidence of acute territorial infarction or other acute intracra nial disease process. ACT 112: Negative or not required by law. Electronically signed by: Chano Potter M.D. 11/01/2022 10:18 PM
[2022-11-01] MEDS ORDERED: HALOPERIDOL LACTATE 5 MG/ML 1 ML VIAL IV STA (22:29)
--- NOTE | 2022-11-01 22:39 | Hospitalist Progress Note ---
Date of Service November 01, 2022 Assessment & Plan (1) Acute metabolic encephalopathy: Plan: presented with confusion at time of admission. has gotten progressively worse while here. initially attributed to a MAKER UP FOLDING event (concern for CVA --> MRI brain negative, thus TIA). needed IM zyprexa yesterday for worsening agitation post-pacer placement yesterday. today - hallucinations, confusion, agitation again prominent. at this point hospital psychosis is likely driving this. With his dysarthria I cannot rule out stroke contributing to mental status (MRI brain at admission was severely limited per the official reading). schedule seroquel at HS tonight. if unable to take PO seroquel then zyprexa 2.5mg IM x 1. cont melatonin. AVOID sedatives (ativan, etc). cannot get MRI brain (need to wait 6 weeks post-pacer placement). thus, obtain CT head. check u/a and urine cx -- r/o UTI. /nephew wanted to bring him home today. I highly discouraged this - I expressed considerable concern about his safety in the setting of escalating agitation. I concurred with his family that confusion is often better in a familiar environment (ie someone's home) - HOWEVER, I am concerned that he will cause harm to himself or his pacemaker by inadvertent use of his L arm (he won't keep the sling on). I expressed concerns about falls, night-time agitation, etc. ultimately /nephew agreeable to having him remained hospitalized. reinforce sleep/wake cycle. ideally he is in room with more direct sunlight. melatonin. frequent re-orientation. etc. (2) TIA (transient ischemic attack): Plan: Several minute episode of aphasia/dysarthria at home that resolved by time of presentation. never had any limb weakness. full TIA w/u negative including MRI brain and CTA head/neck (?fibromuscular dysplasia of ICAs b/l). echo w/o thrombus. at time of presentation he had a.fib with slow ventricular response off of any AV kristen agent. of note - MRI brain was not a good study per radiology; potentially it could miss a CVA. do suspect that, at minimum, this was a TIA event likely due to a.fib. anticoagulation can be initiated 11/03/22 at (eliquis BID, if affordable). repeat head CT today due to ongoing dysarthria. (3) Junctional bradycardia: Plan: The severe bradycardia was due to atrial fibrillation with slow ventricular r ate. Appreciate cardiology consultation. s/p pacemaker placement yesterday by Dr Murphy. TSH wnl. (4) Atrial fibrillation with slow ventricular response: Plan: s/p permanent pacemaker placement by Dr Murphy on 10/31/22. can start anticoagulation 11/03/22 at HS pacer functioning well per Dr Murphy cxr today without complicating pneumothorax (5) BPH loc w/o ur obs/LUTS: Plan: Continue dutasteride (6) Diabetes mellitus: Plan: Hba1c 6.3%. Pre-DM / borderline full-blown T2DM. Diet control for now. (7) Anemia: Plan: Chronic. Fe studies, B12, folate satisfactory. follow. (8) Chronic steroid use: Plan: 5mg/day for #9 below. follows with [facility]. (9) Inflammatory polyarthropathy: Plan: typically on 5mg daily prednisone (10) Hyponatremia: Plan: chronic, dating back several years Sosm, Uosm, Zuleima - c/w SIADH cause ?? not on meds that would cause such may benefit from chronic NaCL supplementation BMP am of note - doubt Na level contributing to confusion as the hyponatremia is chronic Plan PT, SHAHRIAR florentino appreciated Admission and Anticipated Discharge Date Admission Date: October 30, 2022 Subjective patient very confused during my visit today he did not remember he had pacemaker placement yesterday he thought he was at his house he was very confused last pm required IM zyprexa due to agitation - this did help staff noted he was hallucinating today - he was talking to his while he was alone in the room during my rounds his & nephew were at bedside they requested he be discharged home they feel he will do better at home in his home environment during my visit the patient was twisting his monitor cords, very restless, agitated throughout the day he would not keep his L arm sling in place speech continues to be slurry confirms this is not his usual speech yesterday his stated that at baseline he is typically oriented x 3 today his nephew stated that current mental status is near baseline ? Review of Systems Review of Systems: Unobtainable due to cognitive status Physical Exam Physical Exam: gen - agitated, very confused, restless; sitting in chair during the visit HENT - MMM, hearing impaired neck - no JVD chest - pacer site L chest with dressing intact heart - RRR, s1 s2, 2/6 systolic murmur LLSB lungs - minimal rales bases, no distress abd - soft NT ND BS+ ext - no edema, pulses 2+ b/l psych - confused, oriented to person only neuro - dysarthric speech, no facial droop; strength 5/5 x 4 exts Results & Data Results & Data ([facility]) Vital Signs (Past 12 Hours) Vital Signs Temp Pulse Resp BP Pulse Ox O2 Del Method 11/01/22 11:39 36.6 C 66 18 129/75 98 Room Air Laboratory Results Laboratory Results - last 24 hr 11/01/22 11/01/22 11/01/22 04:16 04:16 04:16 Sodium 131 L Potassium 4.0 Chloride 99 Carbon Dioxide 24 Anion Gap 8 BUN 21 Creatinine 0.81 Est Cr Clr Drug Dosing 62.3 Est GFR ( Amer) 93.9 Est GFR (Non-Af Amer) 81.0 BUN/Creatinine Ratio 25.9 H Glucose 158 H Osmolality 277 L Calcium 8.4 L Iron 36 TIBC 231 L Unsaturated IBC 195 Transferrin % Sat 16 L Ferritin 303.4 Vitamin B12 Folate Urine Color Urine Appearance Urine pH Ur Specific [place] Urine Protein Urine Glucose (UA) Urine Ketones Urine Blood Urine Nitrite Urine Bilirubin Urine Urobilinogen Ur Leukocyte Esterase Urine Osmolality Ur Random Sodium 11/01/22 04:16 Sodium Potassium Chloride Carbon Dioxide Anion Gap BUN Creatinine Est Cr Clr Drug Dosing Est GFR ( Amer) Est GFR (Non-Af Amer) BUN/Creatinine Ratio Glucose Osmolality Calcium Iron TIBC Unsaturated IBC Transferrin % Sat Ferritin Vitamin B12 530 Folate 12.18 Urine Color Urine Appearance Urine pH Ur Specific [place] Urine Protein Urine Glucose (UA) Urine Ketones Urine Blood Urine Nitrite Urine Bilirubin Urine Urobilinogen Ur Leukocyte Esterase Urine Osmolality Ur Random Sodium Diagnostic Findings Chest X-Ray 11/01/22 07:00 XR chest 2V PA/lateral HISTORY: 87 years-old Male EXACT TIME ORDERED Evaluate for pneumothorax and l status post placement of a left subclavian pacer COMPARISON: Chest radiographs October 28, 2022 TECHNIQUE: AP and lateral views of the chest FINDINGS: Cardiac silhouette is enlarged. Pulmonary vascular congestion. Status post placement of a left subclavian pacer. No postprocedural pneumothorax. Trace pleural effusions with mild bibasilar densities. Mild left hemidiaphragmatic elevation. Degenerative changes of the shoulders and spine. IMPRESSION: 1. Cardiomegaly with pulmonary vascular congestion. 2. Status post placement of a single lead left subclavian pacer. No postprocedural pneumothorax identified. 3. Trace pleural effusions with mild bibasilar atelectasis. ACT 112: Negative or not required by law. The above report was generated using voice recognition software. It may contain grammatical, syntax or spelling errors. Electronically signed by: Sadi Marsh M.D. 11/01/2022 7:[address] 11/01/22 16:40 CT head/brain wo con CLINICAL HISTORY: dysarthria, confusion; eval CVA Technique: Contiguous axial CT images of the head were acquired from the base of the skull to the vertex without intravenous contrast administration. Images were viewed in brain, subdural and bone windows. Automated dose lowering techniques and/or adjustment according to patient size were utilized for this exam. Comparison: Comparison is made to CT head 10/28/2022 Findings: Areas of decreased attenuation are present in the periventricular and subcortical white matter bilaterally consistent with small vessel ischemic disease. Generalized cerebral atrophy with commensurate enlargement of the ventricles, sulci, and cisterns is also present. There is no acute intracranial hemorrhage or evidence of acute territorial infarction. No shift of the midline structures, mass effect, or extra-axial abnormalities are shown. Atherosclerotic calcifications are present in the intracranial segments of the internal carotid arteries. Calcification in the midline of the posterior fossa is unchanged. Imaged portions of the paranasal sinuses and mastoid air cells are clear. The orbits appear normal. There are no acute fractures of the calvaria or scalp swelling. Impression: No acute intracranial hemorrhage, no evidence of acute territorial infarction or other acute intracranial disease process. ACT 112: Negative or not required by law. Electronically signed by: Chano Potter M.D. 11/01/2022 10:18 PM PG Care Time/CCT Total # of Minutes Spent Total Time Spent with Patient: Total time spent is greater than 50% in coordination of care (as documented) at patient's floor/unit and/or counseling patient: Coding Level of Care Code 67205 SUB INP/OBS CARE 350MIN Diagnoses Acute metabolic encephalopathy G93.41 TIA (transient ischemic attack) G45.9 Junctional bradycardia R00.1 Atrial fibrillation with slow ventricular response I48.91 BPH loc w/o ur obs/LUTS N40.0 Diabetes mellitus E11.9 Anemia D64.9 Chronic steroid use Inflammatory polyarthropathy M06.4 Hyponatremia E87.1
[2022-11-02 01:41] LABS: Appearance Urine Clear (Clear); Bilirubin Urine Negative (Negative); Blood Urine Negative (Negative); Color Urine Yellow; Glucose Urine UA Negative (Negative); Ketones Urine Negative (Negative); Leukocyte Esterase Urine Negative (Negative); Nitrite Urine Negative (Negative); Protein Urine Negative (Negative); Specific Gravity Urine 1.012 (1.000-1.030); Urobilinogen Urine Negative (Negative); pH Urine 5.5 (4.5-7.5)
[2022-11-02 07:09] LABS: Hematocrit (blood only) 40.6 % (40.1-51.0); Hemoglobin 14.3 g/dl (14.0-18.0); Mean Corpuscular Hemoglobin 32.3 pg (25.0-34.0); Mean Corpuscular Hgb Conc 35.2 g/dL (32.0-36.0); Mean Corpuscular Volume 91.6 fL (80.0-100.0); Mean Platelet Volume 11.4 fL (9.4-12.4); Platelet Count 144 K/uL (130-400); RDW Coefficient of Variation 13.3 % (11.5-14.5); Red Blood Count 4.43 M/uL (4.63-6.08)
[2022-11-02 07:24] LABS: BUN Creatinine Ratio 36.1 (10-20); Calcium 8.9 mg/dl (8.5-10.1); Creatinine Clr Calc Pharmacy 60.8 ml/min; Est GFR (Non-African American) 80.2 ml/min; Potassium 4.2 mmol/L (3.5-5.1)
[2022-11-02] MEDS: CHOLECALCIFEROL 1,000 UNITS 25 MCG TAB PO SCH (12:10)
[2022-11-02] MEDS: [UNRECOGNIZED DRUG - REMARK] PO SCH (12:10)
[2022-11-02] MEDS: ASPIRIN 81 MG ECTAB PO SCH (12:10)
[2022-11-02] MEDS: predniSONE 5 MG TAB PO SCH (12:10)
[2022-11-02] MEDS ORDERED: STROKE PATIENT DISCHARGE STA (16:19)
--- NOTE | 2022-11-03 18:41 | Discharge Summary ---
Date of Service November 03, 2022 Admission HPI Per Admitting Provider In the living room last night and mentioned he had to use the bathroom. WEnt ot use the bathroom, voided, but then afterwards was having garbled speech for 4 minutes. Was able to tell his his name after and then speech returned to normal shortly after. Did OK overnight, got up to use the bathroom 2x, and has been normal since. During the episode could understand speech, and knew what words he wanted to say but speech was garbled. NO history of similar of similar symptoms. Hx of murmur, denies heart problems/arrythmia/GA. NO history of blood pressure problems. No renal problems. +BPH on dutasteride. Trace bilateral le swelling chronically no change. R knee pain/swelling. Is waiting to have R knee replacement at [facility]. Feels normal at bedside. No weakness or vision change. No weakness. No lightheadedness/dizziness. Has had some intermittent confusion but well oriented normally and conversive. Not on aspirin, thinks was on it many years ago. Is on prednisone 5mg chronically for inflammatory arthritis. Patient admitted to hospital for further work-up. Movement over the course of admission patient was found to have sick sinus syndrome and consulted with cardiology and pacemaker was placed. Medical History: Reviewed Medications: Reviewed Surgical History: Reviewed Allergies: Reviewed Social History: No tobacco product, etoh, or recreational drug. Code Status:DNR Principal Diagnosis Cognitive impairment, possibly secondary to undetected seizure activity versus undetected stroke complicated with sundowning and early dementia versus others Discharge Exam gen - agitated, very confused, restless; sitting in chair during the visit HENT - MMM, hearing impaired neck - no JVD chest - pacer site L chest with dressing intact heart - RRR, s1 s2, 2/6 systolic murmur LLSB lungs - minimal rales bases, no distress abd - soft NT ND BS+ ext - no edema, pulses 2+ b/l psych - confused, oriented to person only neuro - dysarthric speech, no facial droop; strength 5/5 x 4 exts Discharge Data Allergies Allergy/AdvReac Type Severity Reaction Status Date / Time ibuprofen Allergy Unknown swelling Verified 10/28/22 15:36 Consultations 10/28/22 16:05 ED Decision to Admit Stat 10/28/22 22:27 Consult Cardiology Routine Procedures Performed Operation Date: 10/31/22 09:30 Actual Procedures p Pacer with Ventricular Lead - Adrian Murphy MD Ordered Studies 10/28/22 13:00 CT head/brain wo con Stat 10/28/22 13:17 CT angio head w con Stat CT angio neck with con Stat 10/29/22 00:00 MR brain wo con Routine 10/31/22 08:15 EP Lab Images for PACS ONCE 11/01/22 16:40 CT head/brain wo con Routine Hospital Course (1) Acute metabolic encephalopathy: presented with confusion at time of admission, since then patient symptom has been getting worse, patient had extensive work-up during admission which was nondiagnostic, patient had a CT of brain was unremarkable. Patient is a poor quality MRI of brain which was unremarkable. His mental status started worsening over the course of admission. There was no evidence of ongoing infection. There was no evidence of significant lecture abnormality. Over the course of admission patient was found to have malignant bradycardia arrhythmias and required pacemaker Placement. The patient is adequate oral intake. Decision was made to proceed with second MRI given the for similar had a poor quality and patient has not been improving but worsening. However, given pacemaker has been placed there is a waiting time for at least for 6 weeks. The prior attending at as well as I would recommend the patient's who happened to be POA to transfer the patient to assisted facility given recent pacemaker placement, worsening confusion and monitor for his symptom. However her is very adamant to take him home and stated that she will take the full responsibility. (2) TIA (transient ischemic attack): Several minute episode of aphasia/dysarthria at home that resolved by time of presentation. never had any limb weakness. full TIA w/u negative including MRI brain and CTA head/neck (?fibromuscular dysplasia of ICAs b/l). echo w/o thrombus. at time of presentation he had a.fib with slow ventricular response off of any AV kristen agent. of note - MRI brain was not a good study per radiology; potentially it could miss a CVA. do suspect that, at minimum, this was a TIA event likely due to a.fib. anticoagulation can be initiated 11/03/22 at (eliquis BID, if affordable). repeat head CT due to ongoing dysarthria. Was nondiagnostic (3) Junctional bradycardia: The severe bradycardia was due to atrial fibrillation with slow ventricular rate. Appreciate cardiology consultation. s/p pacemaker placement by Dr Murphy. TSH wnl. (4) Atrial fibrillation with slow ventricular response: s/p permanent pacemaker placement by Dr Murphy on 10/31/22. can start anticoagulation 11/03/22 at HS pacer functioning well per Dr Murphy cxr today without complicating pneumothorax (5) BPH loc w/o ur obs/LUTS: Continue dutasteride (6) Diabetes mellitus: Hba1c 6.3%. Pre-DM / borderline full-blown T2DM. Diet control for now. (7) Anemia: Chronic. Fe studies, B12, folate satisfactory. follow. (8) Chronic steroid use: 5mg/day for #9 below. follows with [facility] (9) Inflammatory polyarthropathy: typically on 5mg daily prednisone (10) Hyponatremia: chronic, dating back several years Sosm, Uosm, Zuleima - c/w SIADH cause ?? not on meds that would cause such may benefit from chronic NaCL supplementation BMP am of note - doubt Na level contributing to confusion as the hyponatremia is chronic Plan PT, OT evals appreciated Total Time Total Time Spent Total Time Spent (In Minutes): 45 Discharge Plan Discharge Items Patient Disposition: Home - Self-Care Reason For Visit: ?TIA, BRADYCARDIA Discharge Diagnosis: sick sinus syndrome Activity: Resume your previous activity Lifting: Gradually increase as tolerated Bathing: No limitations Exercise/Sports: Gradually increase as tolerated Non-emergency contact: Primary Care Provider and Savings Counselor Call non-emergency contact if: you have any medication questions and your s ymptoms worsen Follow-up/Referrals: Walter Meehan PA-C [Physician Refractory Specialist] - 12/07/22 2:00 pm (with Walter Meehan for 1 month pacer check) Jim Qiu MD [Primary Care Provider] - Mathew Quinonez MD [Physician] - Adrian Murphy MD [Physician] - 11/07/22 10:30 am (wound check with nurse ) Diet: Heart Healthy Addtl Attending Provider Instructions: The site of the pace maker placement should be intact till you see Dr Quinonez. Please call Dr. Quinonez for follow up visit. [place] left arm should be in a sling . Mr Edmonds is currently confused, possibly because of early dementia and sundowningand recent procedure. Mr. Ibarra who by default is medical POA is advised against discharging from hospital to home given he is a total care and recommendation is made for placement to a assisted facility. However she is adamant that he will be released home and she is able to take care him and she will take full responsibility for possible consequences.sales service route manager is informed to provide maximum assisst at home Addtl Cold Press Loader Provider Instructions: Please return to ER if you symptoms of Mr Richardson started getting worse or has new symptoms or at home you are not able to provide him care If his confusion continues please folllow up in one week with primary care doctor Pending Studies at Discharge: No Stand-Alone Forms: My [facility] [employer], Smoking Cessation, Medications to Prevent Stroke Medications and DC Order Prescriptions: New Eliquis 5 mg tablet 5 mg PO BID Qty: 60 5RF aspirin 81 mg Tablet,Delayed Release (Dr/Ec) 81 mg PO QAM Qty: 30 0RF quetiapine 25 mg Tablet 12.5 mg PO HS Qty: 30 0RF melatonin 3 mg Tablet 3 mg PO HS Qty: 30 0RF Continued mometasone 0.1 % cream 1 applic TOP DAILY Qty: 159 0RF dutasteride [Avodart] 0.5 mg capsule 0.5 mg PO DAILY Qty: 90 3RF Centrum Silver Ultra Men's 300-600-300 mcg tablet 1 tab PO DAILY Qty: 30 0RF prednisone 5 mg tablet 5 mg PO QAM risedronate 35 mg tablet 35 mg PO WK nystatin-triamcinolone 100,000-0.1 unit/g-% cream 1 applic TOP BID PRN (Reason: as needed) cholecalciferol (vitamin D3) [Vitamin D3] 25 mcg (1,000 unit) Tablet 25 mcg PO DAILY Discharge Orders: Discharge Order (Routine); Ordered 11/02/22 Ordered By: Keaton Pino/Other Patient Handouts: Living with a Pacemaker, What Is Ischemic Stroke?, Pacemaker Implant Dc, TIA Dc Admission Data Admit Date/Time: 10/30/22 09:10 Attending Provider: Keaton Coker Admit Provider: Steven Koo Primary Care Provider: Pro,Jim W. Other Providers: Steven Koo ; Mathew Quinonez ; Kay,Home Health Other Interventions: Discharge Summary Assessment (RN) Last Done: 11/02/22 16:28 Coding Level of Care Code HOSP INP/OBS DISCH >30 MIN Diagnoses Acute metabolic encephalopathy G93.41 TIA (transient ischemic attack) G45.9 Junctional bradycardia R00.1 Atrial fibrillation with slow ventricular response I48.91 BPH loc w/o ur obs/LUTS N40.0 Diabetes mellitus E11.9 Anemia D64.9 Chronic steroid use Inflammatory polyarthropathy M06.4 Hyponatremia E87.1
== END 2022-11-02 18:00 | disposition home health service (06) | DRG 242 ==
LOC: ED 12:49 → EDINP 12:49 → SUATTDRO 16:20 → 2N 20:42 → 1E 10-29 07:13 → SUATTDRO 10-30 09:10 → 2S 11-01 20:31
DX: R00.1 Bradycardia, unspecified; E78.5 Hyperlipidemia, unspecified; Z79.52 Long term (current) use of systemic steroids; N40.0 Benign prostatic hyperplasia without lower urinary tract symptoms; R29.700 NIHSS score 0; I48.91 Unspecified atrial fibrillation; Z66 Do not resuscitate; R56.9 Unspecified convulsions; M13.80 Other specified arthritis, unspecified site; I45.10 Unspecified right bundle-branch block; E11.9 Type 2 diabetes mellitus without complications; D64.9 Anemia, unspecified; R47.1 Dysarthria and anarthria; G93.41 Metabolic encephalopathy; E22.2 Syndrome of inappropriate secretion of antidiuretic hormone; G45.9 Transient cerebral ischemic attack, unspecified; F03.90 Unspecified dementia, unspecified severity, without behavioral disturbance, psychotic disturbance, mood disturbance, and anxiety

== ENCOUNTER 2022-11-03 13:08 | Inpatient (IN) ==
--- NOTE | 2022-11-03 13:35 | Emergency Department Note ---
History of Present Illness General Chief complaint: Stroke/CVA Symptoms Stated complaint: SYNCOPE Time Seen by Provider: 11/03/22 13:11 Source: EMS History of Present Illness Provider complaint: Syncope slurred speech Onset (ago): minute(s) (80) 87-year-old male presents emergency department via EMS. Per EMS the patient had a syncopal episode today at 1152. Patient is on Eliquis. When he woke up patient has slurred speech and was confused. No EMS reports that the patient was seen at an emergency department yesterday for TIA. Home Medications Medication Instructions Recorded Confirmed Type yaxmovxe-cbk-rvzfj acid 300 1 tab PO DAILY #30 tabs 06/13/19 11/03/22 Rx mcg-lycopene 600 mcg-lutein 300 mcg tablet (Centrum Silver Ultra Men's) prednisone 5 mg tablet 5 mg PO QAM 06/13/19 11/03/22 History risedronate 35 mg tablet 35 mg PO WK 06/13/19 11/03/22 History mometasone 0.1 % topical cream 1 applic topical DAILY #159 grams 06/07/22 Rx dutasteride 0.5 mg capsule 0.5 mg PO DAILY #90 caps 09/14/22 11/03/22 Rx (Avodart) cholecalciferol (vitamin D3) 25 25 mcg PO DAILY 10/28/22 11/03/22 History mcg (1,000 unit) tablet (Vitamin D3) nystatin-triamcinolone 100,000 1 applic topical BID PRN as needed 10/28/22 0 11/03/22 History unit/g-0.1 % topical cream apixaban 5 mg tablet (Eliquis) 5 mg PO BID #60 tabs 11/01/22 11/03/22 Rx aspirin 81 mg tablet,delayed 81 mg PO QAM #30 tabs 11/02/22 11/03/22 Rx release melatonin 3 mg tablet 3 mg PO HS #30 tabs 11/02/22 11/03/22 Rx quetiapine 25 mg tablet 12.5 mg PO HS #30 tabs 11/02/22 11/03/22 Rx Allergies Allergy/AdvReac Type Severity Reaction Status Date / Time ibuprofen Allergy Unknown swelling Verified 10/28/22 15:36 Past Med/Surg History Medical History Acute gout (07/12/14) Anemia Arthralgia Cellulitis of hand, right Crush injury to finger Degenerative arthritis of knee, bilateral Diabetes mellitus Fasciitis (07/01/14) Finger laceration Fracture of pelvis History of diverticulitis Hyperlipidemia Inflammatory polyarthropathy Left arm cellulitis Metabolic disorder Surgical History H/O hand surgery repaired Tenotomy flexor S/P cataract surgery bilateral Family History Brother Prostate cancer Sister Diabetes type 2 Denies family history of Ovarian cancer Myocardial infarction Breast cancer Colorectal cancer Social History Smoking Status: Never smoker Second Hand Exposure: No; Hx Alcohol Use: No Hx Substance Use: No Preferred Language: [place] Communication Ability: Impaired Director Of Special Events Required: No Beliefs That Will Affect Care: None marital status: Current Living Situation: Spouse current occupational status: retired Feels Safe at Home: Yes Seatbelt Use: always Assistive Devices: Cane, Denture - Upper, Denture - Lower, Glasses and Walker Physical Exam Vital Signs Vital Signs - 24 hr 11/03/22 13:12 11/03/22 15:55 Temperature 36.6 C Temperature Source Oral Pulse Rate 79 Pulse Rate [Apical] 64 Respiratory Rate 16 21 Respiratory Depth Normal Respiratory Pattern Regular Blood Pressure 108/47 L Blood Pressure [Right Arm] 108/47 L Blood Pressure Mean 67 Blood Pressure Mean [Right Arm] 67 Pulse Oximetry 100 100 Oxygen Delivery Method Room Air Sepsis Recent Fever Within 48 Hours No Sepsis New/Unexplained Change in Mental Status Yes Sepsis Action Taken by Nursing No Action Required Physical Exam EYES: Conjunctivae and EOM are normal. Pupils are equal, round, and reactive to light. Right eye exhibits no discharge. Left eye exhibits no discharge. No scleral icterus. CV: Normal rate, regular rhythm, normal heart sounds and intact distal pulses. There is no peripheral edema. Palpable radial pulses bue. PULM/CHEST: Effort normal and breath sounds normal. No respiratory distress. No stridor. He has no wheezes. He has no rales. ABD: The abdomen is soft. NEURO: NIHSS: 6 (1b:1, 7:1, 9:2, 10:2) SKIN: Ecchymosis over the anterior chest wall and bilateral upper extremities. Course Course 1311: The patient was evaluated in room C6. A complete history and physical exam was performed Cardiac monitoring: An order was placed for continuous cardiac monitoring. The monitor shows a rate of 70 with paced rhythm Patient is not a TNKase candidate as the patient is on Eliquis therefore no code stroke will be called. External medical records were reviewed. There was no ER visit from this facility from yesterday. Patient was admitted to the hospital from October 28 to November 02. The patient was admitted to the hospital on October 28 for dysarthria with a suspicious TIA. During his emergency department stay on October [address] head CT angio of the head and neck which showed no hemorrhage mass-effect or territorial ischemia there is an unremarkable CT angiogram of the brain and there is moderate stenosis at the origin of the diminutive right vertebral artery and a dominant left vertebral artery that was widely patent. Carotid arteries were also widely patent. During the patient's hospital admission the patient got progressively confused. Patient had an MRI done on October 29, 2022 which was highly limited but there is no acute abnormality. While the patient was admitted to the hospital the patient needed IM Zyprexa for worsening agitation. The patient was having hallucinations confusion and agitation. Hospitalist team thought that he had hospital psychosis driving this. According to the progress note from November [address] Massey the and nephew wanted to take the patient home and he discouraged it. Patient will be taken for repeat CT of the head, CT angio of the head and neck given his acute onset of symptoms if his creatinine allows it. 1410: Family at bedside. Nephew reports that the patient at 11:52 AM was speaking appropriately eating breakfast without any discomfort no dexterity issues and then had a syncopal episode and then searching his hand drooling and leaning to the side. Stated lasted proxy 1 minute in duration when he awoke without any pharmacological intervention he was having slurred speech afterwards. Patient currently in CT. This history from the nephew at bedside raises the possibility for seizure also. Pacemaker will be interrogated when the patient returns to his room. 1510: Vital signs stable. Patient still having dysarthria and expressive aphasia. CTA of the head and neck as well as CT of the head without contrast show no changes from previous CTs. Labs are significant for troponin of 132.1 however given the patient's recent pacemaker placement is thought that this is most likely secondary to the recent cardiac procedure. Total bilirubin chronically elevated 1.5. It is unclear if the patient had a syncopal episode or seizure or a stroke. Again patient has not TNKase candidate due to him being on Eliquis. Dr. Murphy cardiology was made aware of the patient while evaluating the patient in the emergency department. And went over the patient's chest x-ray to make sure the leads were in place which they were. He agrees that the patient should be admitted to the medicine service. Discussed with neurology on-call Dr. Andrews and described the episode to him about a possible seizure-like activity and he states that he is not convinced that this was a true seizure and does not recommend antiseizure medications at this time. Patient will be admitted to the [facility] Hospitalist team Dr. Irvin's team notified. Administered Medications Discontinued Medications Ioversol (Optiray 320 500ml) 120 ml IV ONCE ONE Stop: 11/03/22 13:53 Last Admin: 11/03/22 13:52 Dose: 120 ml Documented By: JOSEPH Medical Decision Making Laboratory Data Attestation: I reviewed the patient's lab results. 11/03/22 13:20 11/03/22 13:20 Lab Results 11/03/22 11/03/22 11/03/22 Range/Units 13:20 13:20 13:20 WBC 6.74 (4.8-10.8) K/ul RBC 4.16 L (4.70-6.10) M/uL Hgb 13.6 L (14.0-18.0) g/dl POC Hgb (14.0-18.0) g/dl Hct 39.3 L (42.0-52.0) % POC Hct (42-52) % MCV 94.5 (80.0-100.0) fL MCH 32.7 (25.0-34.0) pg MCHC 34.6 (32.0-36.0) g/dL RDW Std Deviation 48.6 H (36.4-46.3) fL RDW Coeff of Nay 13.9 (11.5-14.5) % Plt Count 147 (130-400) K/uL MPV 11.4 (9.4-12.4) fL Immature Gran % (Auto) 0.7 % Neut % (Auto) 77.5 % Lymph % (Auto) 10.7 % [place] % (Auto) 8.9 % Eos % (Auto) 1.3 % Baso % (Auto) 0.9 % Neut # (Auto) 5.22 (1.40-6.50) K/uL Lymph # (Auto) 0.72 L (1.2-3.4) K/uL [place] # (Auto) 0.60 H (0.11-0.59) K/uL Eos # (Auto) 0.09 (0-0.50) K/uL Baso # (Auto) 0.06 (0-0.2) K/uL Immature Gran # (Auto) 0.05 (0.01-0.20) K/uL PT 12.0 (9.0-12.0) Seconds INR 1.1 (0.9-1.1) APTT 25.6 (21.0-31.0) Seconds PTT Ratio 0.9 POC Sodium (135-144) mmol/L Sodium (136-145) mmol/L POC Potassium (3.3-5.0) mmol/L Potassium (3.5-5.1) mmol/L POC Chloride (101-112) mmol/L Chloride (98-107) mmol/L Carbon Dioxide (21-32) mmol/L POC Total CO2 (24-31) mmol/L Anion Gap (3-11) POC Anion Gap (16-25) mmol/L POC BUN (7-18) mg/dl BUN (6-23) mg/dl Creatinine (0.6-1.4) mg/dl POC Creatinine (0.6-1.3) mg/dl Est Cr Clr Drug Dosing ml/min Est GFR ( Amer) ml/min Est GFR (Non-Af Amer) ml/min BUN/Creatinine Ratio (10-20) Glucose (70-99(Fasting)) mg/dl POC Glucose (other) (70-99) mg/dl Calcium (8.5-10.1) mg/dl POC Ioniz Calcium Kartik (1.12-1.32) mmol/l Magnesium (1.7-2.4) mg/dl Total Bilirubin (0.2-1.0) mg/dl AST (13-39) U/L ALT (7-52) U/L Alkaline Phosphatase (34-104) U/L Troponin I High Sens (0-20) pg/ml Total Protein (6.0-8.3) gm/dl Albumin (3.4-5.0) gm/dl Globulin (2.5-4.0) gm/dl Albumin/Globulin Ratio (0.9-2) SARS-CoV-2, RNA, NAAT (NEGATIVE) Blood Type A Positive Antibody Screen NEGATIVE 11/03/22 11/03/22 11/03/22 Range/Units 13:20 13:32 16:09 WBC (4.8-10.8) K/ul RBC (4.70-6.10) M/uL Hgb (14.0-18.0) g/dl POC Hgb 13.6 L (14.0-18.0) g/dl Hct (42.0-52.0) % POC Hct 40 L (42-52) % MCV (80.0-100.0) fL MCH (25.0-34.0) pg MCHC (32.0-36.0) g/dL RDW Std Deviation (36.4-46.3) fL RDW Coeff of Nay (11.5-14.5) % Plt Count (130-400) K/uL MPV (9.4-12.4) fL Immature Gran % (Auto) % Neut % (Auto) % Lymph % (Auto) % [place] % (Auto) % Eos % (Auto) % Baso % (Auto) % Neut # (Auto) (1.40-6.50) K/uL Lymph # (Auto) (1.2-3.4) K/uL [place] # (Auto) (0.11-0.59) K/uL Eos # (Auto) (0-0.50) K/uL Baso # (Auto) (0-0.2) K/uL Immature Gran # (Auto) (0.01-0.20) K/uL PT (9.0-12.0) Seconds INR (0.9-1.1) APTT (21.0-31.0) Seconds PTT Ratio POC Sodium 137 (135-144) mmol/L Sodium 136 (136-145) mmol/L POC Potassium 3.9 (3.3-5.0) mmol/L Potassium 4.0 (3.5-5.1) mmol/L POC Chloride 101 (101-112) mmol/L Chloride 102 (98-107) mmol/L Carbon Dioxide 29 (21-32) mmol/L POC Total CO2 28 (24-31) mmol/L Anion Gap 5 (3-11) POC Anion Gap 13.0 L (16-25) mmol/L POC BUN 31 H (7-18) mg/dl BUN 31 H (6-23) mg/dl Creatinine 0.86 (0.6-1.4) mg/dl POC Creatinine 0.9 (0.6-1.3) mg/dl Est Cr Clr Drug Dosing 62.0 ml/min Est GFR ( Amer) 91.6 ml/min Est GFR (Non-Af Amer) 79.1 ml/min BUN/Creatinine Ratio 36.0 H (10-20) Glucose 216 H (70-99(Fasting)) mg/dl POC Glucose (other) 212 H (70-99) mg/dl Calcium 8.3 L (8.5-10.1) mg/dl POC Ioniz Calcium Kartik 1.15 (1.12-1.32) mmol/l Magnesium 1.9 (1.7-2.4) mg/dl Total Bilirubin 1.5 H (0.2-1.0) mg/dl AST 28 (13-39) U/L ALT 23 (7-52) U/L Alkaline Phosphatase 52 (34-104) U/L Troponin I High Sens 132.1 H* (0-20) pg/ml Total Protein 5.8 L (6.0-8.3) gm/dl Albumin 3.6 (3.4-5.0) gm/dl Globulin 2.2 L (2.5-4.0) gm/dl Albumin/Globulin Ratio 1.6 (0.9-2) SARS-CoV-2, RNA, NAAT NEGATIVE (NEGATIVE) Blood Type Antibody Screen Imaging Data Attestation: I personally reviewed and interpreted this imaging study as follows: My Impression: Chest x-ray: Cardiomegaly with no cephalization. No new pneumothorax. Pacemaker leads are in place. Radiologist's Impression: Chest X-Ray 11/03/22 13:12 XR chest 1V portable CLINICAL HISTORY: neuro deficit, acute stroke suspected TECHNIQUE: Single frontal radiograph of the chest was obtained. Comparison: Comparison is made to chest radiograph 11/01/2022 FINDINGS: Dual lead pacemaker is seen. Cardiomegaly is noted. The aortic arch is calcified. The lungs are clear. No evidence of pleural effusion or pneumothorax. IMPRESSION: No acute chest disease. Cardiomegaly is noted. ACT 112: Negative or not required by law. Electronically signed by: Chano Potter M.D. 11/03/2022 1:[address] 11/03/22 13:12 CT OF THE HEAD WITHOUT CONTRAST CLINICAL HISTORY: neuro deficit, acute stroke suspected COMPARISON STUDY: MRI of the brain October 29, [address] November 01, 2022. TECHNIQUE: Helical axial images of the head were obtained without IV contrast. Automated exposure control was utilized for the study. A dose lowering technique was utilized adhering to the principles of ALARA. FINDINGS: No acute intracranial hemorrhage, midline shift or mass effect is present. White matter hypodensities are unchanged and favor small vessel disease. There is a possible calcified 9 mm lesion within the fourth ventricle. The ventricular system is unremarkable. The basal cisterns are patent. No extra- axial collections are present. There are no findings to suggest acute dural sinus thrombosis or acute territorial infarct. No significant calvarial abnormalities are present. Visualized portions of the sinuses and mastoid air cells are clear. IMPRESSION: 1. No acute intracranial findings. 2. Possible intraventricular lesion within the fourth ventricle, measuring 9 mm. Although indeterminate, this is probably benign. ACT 112: Negative or not required by law. Electronically signed by: Jose Langley M.D. 11/03/2022 2:11 PM Head CTA 11/03/22 13:12 CT angio head w con CLINICAL HISTORY: 87 years-old Male with neuro deficit, acute stroke suspected. Acute strokelike symptoms COMPARISON STUDY: Head CT of same day, CT head 10/28/2022 TECHNIQUE: Following the IV administration of 120 cc of Optiray, CT angiogram of the brain was performed from the skull base to the vertex. Images are reviewed in the axial, sagittal, and coronal planes. 3-D MIPS images are created and assessed. IV contrast was administered without complication. All measurements were obtained according to NASCET criteria. A dose lowering technique was utilized adhering to the principles of ALARA. FINDINGS: CT ANGIOGRAM OF THE BRAIN: Tortuosity of the imaged distal internal carotid arteries again noted along with mild fusiform dilation of the distal cervical segment right ICA measuring 8 mm on image 26 series 5. The bilateral anterior and middle cerebral arteries are also patent. The vertebrobasilar system and posterior cerebral arteries are widely patent with dominant left vertebral artery. The right vertebral artery appears to terminate within the right PICA. Mild multifocal luminal narrowing of the posterior cerebral arteries is similar to prior. There is no aneurysm, high- grade stenosis, or proximal branch occlusion identified. Dural sinuses appear patent. Involutional changes with chronic microvascular ischemic disease again noted. Partially calcified lesion within the fourth ventricle is unchanged measuring up to approximately 2 cm in craniocaudal dimension without hydrocephalus. IMPRESSION: 1. Unremarkable CTA of the head. 2. Partially calcified lesion within the fourth ventricle appears stable. ACT 112: Negative or not required by law. The above report was generated using voice recognition software. It may contain grammatical, syntax or spelling errors. Electronically signed by: Sadi Marsh M.D. 11/03/2022 2:16 PM Neck CTA 11/03/22 13:12 CT angio neck with con CLINICAL HISTORY: neuro deficit, acute stroke suspected TECHNIQUE: CT angiography of the neck was performed following intravenous administration of iodinated contrast. Coronal and sagittal MIPS were obtained from the axial data set and were submitted for review. Automated dose lowering techniques and/or adjustment according to patient size were utilized for this examination. All measurements were calculated based on NASCET criteria. CT DOSE: 1117.18 mGy.cm Comparison: Comparison is made to CTA neck 10/28/2022 FINDINGS: Small thyroid nodules are seen which do not require follow-up by ACR criteria. CTA Neck: A 3 vessel aortic arch is shown. There is no significant atherosclerotic plaque in the aortic arch or the origins of the innominate, left common carotid, and left subclavian arteries. The common carotid, external carotid, cervical segments of the internal carotid arteries, and the cervical s egments of the vertebral arteries are patent without hemodynamically significant stenosis. There is a focus of atherosclerotic disease at the origin of the nondominant right vertebral artery. There is a beaded appearance of the right internal carotid artery measuring up to 8 mm, similar to prior exam. The left vertebral artery is dominant. There is mild irregularity in the posterior segment vertebral artery. The right vertebral artery terminates in PICA. IMPRESSION: Redemonstration of beaded appearance of the vasculature compatible with fibromuscular dysplasia. Assessment of stenosis of the internal carotid arteries is based on NASCET criteria. ACT 112: Negative or not required by law. Electronically signed by: Chano Potter M.D. 11/03/2022 2:48 PM ECG Data Attestation: I personally reviewed and interpreted this ECG as follows: Additional Comments: Paced rhythm with rate of 71. QRS 134 QTC 517. PVC present. [facility] Narrative 1311: The patient was evaluated in room C6. A complete history and physical exam was performed Cardiac monitoring: An order was placed for continuous cardiac monitoring. The monitor shows a rate of 70 with paced rhythm Patient is not a TNKase candidate as the patient is on Eliquis therefore no code stroke will be called. External medical records were reviewed. There was no ER visit from this facility from yesterday. Patient was admitted to the hospital from October 28 to November 02. The patient was admitted to the hospital on October 28 for dysarthria with a suspicious TIA. During his emergency department stay on October [address] head CT angio of the head and neck which showed no hemorrhage mass-effect or territorial ischemia there is an unremarkable CT angiogram of the brain and there is moderate stenosis at the origin of the diminutive right vertebral artery and a dominant left vertebral artery that was widely patent. Carotid arteries were also widely patent. During the patient's hospital admission the patient got progressively confused. Patient had an MRI done on October 29, 2022 which was highly limited but there is no acute abnormality. While the patient was admitted to the hospital the pat ient needed IM Zyprexa for worsening agitation. The patient was having hallucinations confusion and agitation. Hospitalist team thought that he had hospital psychosis driving this. According to the progress note from November [address] Massey the and nephew wanted to take the patient home and he discouraged it. Patient will be taken for repeat CT of the head, CT angio of the head and neck given his acute onset of symptoms if his creatinine allows it. 1410: Family at bedside. Nephew reports that the patient at 11:52 AM was speaking appropriately eating breakfast without any discomfort no dexterity issues and then had a syncopal episode and then searching his hand drooling and leaning to the side. Stated lasted proxy 1 minute in duration when he awoke without any pharmacological intervention he was having slurred speech afterwards. Patient currently in CT. This history from the nephew at bedside raises the possibility for seizure also. Pacemaker will be interrogated when the patient returns to his room. 1510: Vital signs stable. Patient still having dysarthria and expressive aphasia. CTA of the head and neck as well as CT of the head without contrast show no changes from previous CTs. Labs are significant for troponin of 132.1 however given the patient's recent pacemaker placement is thought that this is most likely secondary to the recent cardiac procedure. Total bilirubin chronically elevated 1.5. It is unclear if the patient had a syncopal episode or seizure or a stroke. Again patient has not TNKase candidate due to him being on Eliquis. Dr. Murphy cardiology was made aware of the patient while evaluating the patient in the emergency department. And went over the patient's chest x-ray to make sure the leads were in place which they were. He agrees t hat the patient should be admitted to the medicine service. Discussed with neurology on-call Dr. Andrews and described the episode to him about a possible seizure-like activity and he states that he is not convinced that this was a true seizure and does not recommend antiseizure medications at this time. Patient will be admitted to the [facility] hospitalist team Dr. Irvin's team notified. Impression & Plan Stroke-like symptoms, Observed seizure-like activity, Syncope, Elevated troponin Discharge Plan Visit Data Chief Complaint: Stroke/CVA Symptoms Stated Complaint: SYNCOPE ED Provider: Jayden Robb Discharge Problem: Stroke-like symptoms, Observed seizure-like activity, Syncope, Elevated troponin Patient Disposition: Being Evaluated by Hospitalist
[2022-11-03 13:44] LABS: Basophils # (auto) 0.06 K/uL (0-0.2); Basophils % (auto) 0.9 %; Eosinophils # (auto) 0.09 K/uL (0-0.50); Eosinophils % (auto) 1.3 %; Hematocrit (blood only) 39.3 % (42.0-52.0); Hemoglobin 13.6 g/dl (14.0-18.0); Immature Granulocytes # (auto) 0.05 K/uL (0.01-0.20); Immature Granulocytes % (auto) 0.7 %; Lymphocytes # (auto) 0.72 K/uL (1.2-3.4); Lymphocytes % (auto) 10.7 %; Mean Corpuscular Hemoglobin 32.7 pg (25.0-34.0); Mean Corpuscular Hgb Conc 34.6 g/dL (32.0-36.0); Mean Corpuscular Volume 94.5 fL (80.0-100.0); Mean Platelet Volume 11.4 fL (9.4-12.4); Monocytes % (auto) 8.9 %; Neutrophils # (auto) 5.22 K/uL (1.40-6.50); Neutrophils % (auto) 77.5 %; Platelet Count 147 K/uL (130-400); RDW Coefficient of Variation 13.9 % (11.5-14.5); RDW Standard Deviation 48.6 fL (36.4-46.3); Red Blood Count 4.16 M/uL (4.70-6.10); White Blood Count 6.74 K/ul (4.8-10.8)
--- NOTE | 2022-11-03 13:45 | XRay Report ---
XR chest 1V portable CLINICAL HISTORY: neuro deficit, acute stroke suspected TECHNIQUE: Single frontal radiograph of the chest was obtained. Comparison: Comparison is made to chest radiograph 11/01/2022 FINDINGS: Dual lead pacemaker is seen. Cardiomegaly is noted. The aortic arch is calcified. The lungs are clear . No evidence of pleural effusion or pneumothorax. IMPRESSION: No acute chest disease. Cardiomegaly is noted. ACT 112: Negative or not required by law. Electronically signed by: Chano Potter M.D. 11/03/2022 1:44 PM
[2022-11-03 13:47] LABS: iSTAT Creatinine 0.9 mg/dl (0.6-1.3); iSTAT Hemoglobin 13.6 g/dl (14.0-18.0); iSTAT Ionized Calcium 1.15 mmol/l (1.12-1.32); iSTAT Potassium 3.9 mmol/L (3.3-5.0)
[2022-11-03] MEDS ORDERED: OPTIRAY 320 500ml IV ONE (13:52)
[2022-11-03 13:57] LABS: Albumin Globulin Ratio 1.6 (0.9-2); Albumin Level 3.6 gm/dl (3.4-5.0); Bilirubin,Total 1.5 mg/dl (0.2-1.0); Calcium 8.3 mg/dl (8.5-10.1); Est GFR (African American) 91.6 ml/min; Est GFR (Non-African American) 79.1 ml/min; Globulin 2.2 gm/dl (2.5-4.0); Magnesium 1.9 mg/dl (1.7-2.4); Total Protein 5.8 gm/dl (6.0-8.3)
[2022-11-03 14:08] LABS: INR 1.1 (0.9-1.1); Partial Thromboplastin Ratio 0.9; Partial Thromboplastin Time 25.6 Seconds (21.0-31.0)
--- NOTE | 2022-11-03 14:12 | CT Scan Report ---
CT OF THE HEAD WITHOUT CONTRAST CLINICAL HISTORY: neuro deficit, acute stroke suspected COMPARISON STUDY: MRI of the brain October 29, [address] November 01, 2022. TECHNIQUE: Helical axial images of the head were obtained without IV contrast. Automated exposure con trol was utilized for the study. A dose lowering technique was utilized adhering to the principles o f ALARA. FINDINGS: No acute intracranial hemorrhage, midline shift or mass effect is present. White matter hyp odensities are unchanged and favor small vessel disease. There is a possible calcified 9 mm lesion wi thin the fourth ventricle. The ventricular system is unremarkable. The basal cisterns are patent. No extra-axial collections are present. There are no findings to suggest acute dural sinus thrombosis or acute territorial infarct. No significant calvarial abnormalities are present. Visualized portions o f the sinuses and mastoid air cells are clear. IMPRESSION: 1. No acute intracranial findings. 2. Possible intraventricular lesion within the fourth ventricle, measuring 9 mm. Although indetermina te, this is probably benign. ACT 112: Negative or not required by law. Electronically signed by: Jose Langley M.D. 11/03/2022 2:11 PM
--- NOTE | 2022-11-03 14:18 | CT Scan Report ---
CT angio head w con CLINICAL HISTORY: 87 years-old Male with neuro deficit, acute stroke suspected. Acute strokelike s ymptoms COMPARISON STUDY: Head CT of same day, CT head 10/28/2022 TECHNIQUE: Following the IV administration of 120 cc of Optiray, CT angiogram of the brain was performed from the skull base to the vertex. Imag es are reviewed in the axial, sagittal, and coronal planes. 3-D MIPS images are created and assessed. IV contrast was administered without complication. All measurements were obtained according to NASCE T criteria. A dose lowering technique was utilized adhering to the principles of ALARA. FINDINGS: CT ANGIOGRAM OF THE BRAIN: Tortuosity of the imaged distal internal carotid arteries again noted along with mild fusiform dilati on of the distal cervical segment right ICA measuring 8 mm on image 26 series 5. The bilateral anteri or and middle cerebral arteries are also patent. The vertebrobasilar system and posterior cerebral ar teries are widely patent with dominant left vertebral artery. The right vertebral artery appears to t erminate within the right PICA. Mild multifocal luminal narrowing of the posterior cerebral arteries is similar to prior. There is no aneurysm, high-grade stenosis, or proximal branch occlusion identifi ed. Dural sinuses appear patent. Involutional changes with chronic microvascular ischemic disease again noted. Partially calcified les ion within the fourth ventricle is unchanged measuring up to approximately 2 cm in craniocaudal dimen francine without hydrocephalus. IMPRESSION: 1. Unremarkable CTA of the head. 2. Partially calcified lesion within the fourth ventricle appears stable. ACT 112: Negative or not required by law. The above report was generated using voice recognition software. It may contain grammatical, syntax o r spelling errors. Electronically signed by: Sadi Marsh M.D. 11/03/2022 2:16 PM
[2022-11-03 14:32] LABS: Troponin I High Sensitivity 132.1 pg/ml (0-20)
--- NOTE | 2022-11-03 14:50 | CT Scan Report ---
CT angio neck with con CLINICAL HISTORY: neuro deficit, acute stroke suspected TECHNIQUE: CT angiography of the neck was performed following intravenous administration of iodinate d contrast. Coronal and sagittal MIPS were obtained from the axial data set and were submitted for re view. Automated dose lowering techniques and/or adjustment according to patient size were utilized f or this examination. All measurements were calculated based on NASCET criteria. CT DOSE: 1117.18 mGy.cm Comparison: Comparison is made to CTA neck 10/28/2022 FINDINGS: Small thyroid nodules are seen which do not require follow-up by ACR criteria. CTA Neck: A 3 vessel aortic arch is shown. There is no significant atherosclerotic plaque in the aor tic arch or the origins of the innominate, left common carotid, and left subclavian arteries. The c ommon carotid, external carotid, cervical segments of the internal carotid arteries, and the cervical segments of the vertebral arteries are patent without hemodynamically significant stenosis. There is a focus of atherosclerotic disease at the origin of the nondominant right vertebral artery. There is a beaded appearance of the right internal carotid artery measuring up to 8 mm, similar to prior exam . The left vertebral artery is dominant. There is mild irregularity in the posterior segment vertebra l artery. The right vertebral artery terminates in PICA. IMPRESSION: Redemonstration of beaded appearance of the vasculature compatible with fibromuscular dysplasia. Assessment of stenosis of the internal carotid arteries is based on NASCET criteria. ACT 112: Negative or not required by law. Electronically signed by: Chano Potter M.D. 11/03/2022 2:48 PM
--- NOTE | 2022-11-03 17:38 | History & Physical Report ---
Date of Service November 03, 2022 Assessment & Plan (1) Stroke-like symptoms: Plan: 87 yo M with PMH HLD, DM2, AF w/ SVR on Eliquis s/p pacemaker placement, previous TIA, inflammatory arthropathy on chronic steroid use presenting for TIA. Transient ischemic attack -Neuroimaging on admission negative. Head CT finding of intraventricular lesion in 4th ventricle at 9mm size, likely benign -Echocardiogram from last admission unremarkable with EF 55-60% -Previous TIA last admission suspected to be due to atrial fibrillation -Improving neurological exam although dysarthria is persistent -I would like to order an MRI as his previous MRI was of low quality per radiology. Unfortunately given his recent pacemaker placement, I discussed with radiology and it appears we must wait 6 weeks before the MRI can be done -It is unfortunate that patient experienced 2 potential CVAs/TIAs in a short period of time at his age of 87. I do believe his prognosis has worsened. PT/OT ordered, suspect he will need rehab/SNF placement -Continue aspirin, initiated atorvastatin 80 mg -Neurology consulted, awaiting recommendations -Fall, seizure, aspiration precautions, neurochecks, SS evaluation Elevated troponin -Troponin 132 on admission -No active chest pain and EKG without ischemic injury concerns -Likely demand ischemia, will continue trending to peak History of atrial fibrillation with SVR s/p pacemaker -S/p single chamber pacemaker placed on 10/31 -Pacer interrogation on admission without abnormality -Currently in paced rhythm, hemodynamically stable -Continue home Eliquis Recent hospital delirium -Pt was agitated requiring IM antipsychotics last admission, discharged on nightly Seroquel -Continue Seroquel 25 mg HS, melatonin -Frequent reorientation, redirection DM2 -A1C 6.3% in 10/2022 -Diet-controlled during last admission -SSI to be ordered once pt can begin eating Hyperlipidemia -Pt not on any statin home medication -10/2022 lipid profile- total 143, TG 38, LDL 53, HDL 82 -Initiated atorvastatin 80 mg in aftermath of second TIA in 1 week Inflammatory arthropathy -Continue prednisone 5 mg daily -No change in management at this time BPH -Continue home dutasteride FENGI: NPO pending speech/swallow evaluation Code status: DNR/DNI DVT ppx: Home Eliquis Isolation: None Dispo: PT/OT ordered Consults: Neurology (2) Elevated troponin: (3) TIA (transient ischemic attack): History of Present Illness Chief Complaint: Slurred speech Primary Care Provider: Jim Qiu MD 87 yo M with PMH HLD, DM2, AF w/ SVR on Eliquis s/p pacemaker placement, previous TIA, inflammatory arthropathy on chronic steroid use presenting for TIA. Pt was admitted to [facility] from 10/28 to 11/02 for TIA with dysarthria. Imaging studies unremarkable at that time but MRI was poor quality study compromised by patient's mobility. He did experience junctional bradycardia/atrial fibrillation with SVR for which he underwent dual lead pacemaker placement on 10/31. Pt was also started on aspirin and Eliquis during this admission. He did experience significant delirium and agitation. Pt discharged home on 11/02. Yesterday evening, pt was brought home by and nephew. He had an uneventful night and this morning around 11:50 AM, was noticed to have sudden onset slurred/garbled speech. He also dropped his head to the side and was shaking his hands. At this time he was unresponsive to his and nephew. Around 11:53 AM pt opened his eyes and was able to recognize his surroundings. He did endorse an occipital headache wrapping around both sides of his forehead and fatigue. He was subsequently brought by EMS to the hospital. On arrival to the ED, pt noted to be 78% on O2 and briefly received 2-4L O2 via NC but he was quickly weaned to RA. Was hemodynamically stable and in paced rhythm on monitor with no abnormalities on pacer interrogation. CBC, BMP unremarkable. Troponin 132 without active chest pain. Head/neck CTA, head CT, CXR were negative. Case was discussed between ER physician and on-call neurologist who advised against any anti-seizure medication at this time. On my evaluation, the pt denies any active symptoms. His headache has resolved. He does feel tired but denies any focal weakness or numbness. His speech was still garbled and his family at bedside stated his dysarthria has not changed since onset. Allergies Allergy/AdvReac Type Severity Reaction Status Date / Time ibuprofen Allergy Unknown swelling Verified 10/28/22 15:36 Home Medications Medication Instructions Recorded Confirmed Type arcmxwrx-nim-kyvuv acid 300 1 tab PO DAILY #30 tabs 06/13/19 11/03/22 Rx mcg-lycopene 600 mcg-lutein 300 mcg tablet (Centrum Silver Ultra Men's) prednisone 5 mg tablet 5 mg PO QAM 06/13/19 11/03/22 History risedronate 35 mg tablet 35 mg PO WK 06/13/19 11/03/22 History mometasone 0.1 % topical cream 1 applic topical DAILY #159 grams 06/07/22 11/03/22 Rx dutasteride 0.5 mg capsule 0.5 mg PO DAILY #90 caps 09/14/22 11/03/22 Rx (Avodart) cholecalciferol (vitamin D3) 25 25 mcg PO DAILY 10/28/22 11/03/22 History mcg (1,000 unit) tablet (Vitamin D3) nystatin-triamcinolone 100,000 1 applic topical BID PRN as needed 10/28/22 11/03/22 History unit/g-0.1 % topical cream apixaban 5 mg tablet (Eliquis) 5 mg PO BID #60 tabs 11/01/22 11/03/22 Rx aspirin 81 mg tablet,delayed 81 mg PO QAM #30 tabs 11/02/22 11/03/22 Rx release melatonin 3 mg tablet 3 mg PO HS #30 tabs 11/02/22 11/03/22 Rx quetiapine 25 mg tablet 12.5 mg PO HS #30 tabs 11/02/22 11/03/22 Rx Past Med/Surg History Medical History Acute gout (07/12/14) Anemia Arthralgia Cellulitis of hand, right Crush injury to finger Degenerative arthritis of knee, bilateral Diabetes mellitus Fasciitis (07/01/14) Finger laceration Fracture of pelvis History of diverticulitis Hyperlipidemia Inflammatory polyarthropathy Left arm cellulitis Metabolic disorder Surgical History H/O hand surgery repaired Tenotomy flexor S/P cataract surgery bilateral Family History Brother Prostate cancer Sister Diabetes type 2 Denies family history of Ovarian cancer Myocardial infarction Breast cancer Colorectal cancer Social History Smoking Status: Unknown if ever smoked Second Hand Exposure: No; Preferred Language: Latvian Communication Ability: Effective Assistant Librarian Required: No Beliefs That Will Affect Care: None marital status: Current Living Situation: Spouse current occupational status: retired Other Information That Helps Us Care for You: No Feels Safe at Home: Yes Safety Concerns: Feels Safe At This Time Seatbelt Use: always Assistive Devices: Cane, Walker and Wheelchair Review of Systems Review of Systems: Per HPI Physical Exam Physical Exam: General: NAD. Cooperative HEENT: Atraumatic, normocephalic. PERRLA, EOMI. Speech garbled Pulm: CTAB A&P. -wheezes, -rales, -rhonchi. Symmetrical chest rise. No increased work of breathing. No respiratory distress. Cardiac: +systolic murmur, paced rhythm, S1 and S2 present. Regular rate. Radial pulses intact and symmetrical. Abdominal: Nontender, nondistended, soft Neuro: 4/5 strength to hip flexion, ankle dorsi/plantarflexion, rose grader strength bilaterally. Sensation to soft touch intact. Garbled speech but intelligible. Responsive to commands, AOx3.. No dgrdtd-cuar-munvac dysmetria. Results & Data Results & Data ([facility]) Vital Signs (Past 12 Hours) Vital Signs Temp Pulse Pulse Resp BP BP Pulse Ox 11/03/22 15:55 64 21 108/47 L 100 11/03/22 13:12 36.6 C 79 16 108/47 L 100 O2 Del Method 11/03/22 15:55 11/03/22 13:12 Room Air Supervising Physician Co-Signing Physician Notes I have discussed patient with Resident and agree with Assessment and Plan Resident Activity Tracking Resident Involvement: Resident Care Provided Care Provided: Adult Hospital Medicine
[2022-11-03] MEDS ORDERED: INFLUENZA VACCINE HIGH DOSE PF 65+ 0.7 ML SYR IM ONE (18:48)
[2022-11-03] MEDS ORDERED: PNEUMOCOCCAL POLYSACCHARIDES 25 MCG/0.5 ML VIAL/SYR IM ONE (18:48)
[2022-11-03] MEDS ORDERED: CARBOHYDRATES FOR HYPOGLYCEMIA PO PRN (18:55)
[2022-11-03] MEDS ORDERED: DEXTROSE 50% 50 ML SYRINGE IV PRN (18:55)
[2022-11-03] MEDS ORDERED: SODIUM CHLORIDE 0.9% 1000ML 1,000 ML IV SCH (18:55)
[2022-11-03] MEDS ORDERED: GLUCOSE 10 TAB/TUBE PO PRN (18:55)
[2022-11-03] MEDS ORDERED: POLYETHYLENE (MIRALAX) 17 GM PACK PO PRN (18:55)
[2022-11-03] MEDS ORDERED: GLUCOSE 40% GEL 15 GM TUBE PO PRN (18:55)
[2022-11-03] MEDS ORDERED: GLUCAGON FOR INJ 1 MG VIAL SQ PRN (18:55)
[2022-11-03] MEDS: APIXABAN 5 MG TABLET PO SCH (20:52)
[2022-11-03] MEDS: QUEtiapine FUMARATE 25 MG TABLET PO SCH (20:52)
[2022-11-03] MEDS: MELATONIN 3 MG TAB PO SCH (20:52)
[2022-11-03] MEDS: ATORVASTATIN 40 MG TAB PO SCH (20:52)
[2022-11-04 06:13] LABS: Hematocrit (blood only) 38.9 % (42.0-52.0); Hemoglobin 13.6 g/dl (14.0-18.0); Mean Corpuscular Hemoglobin 32.5 pg (25.0-34.0); Mean Corpuscular Volume 93.1 fL (80.0-100.0); Mean Platelet Volume 11.6 fL (9.4-12.4); Platelet Count 127 K/uL (130-400); RDW Coefficient of Variation 13.8 % (11.5-14.5); RDW Standard Deviation 47.3 fL (36.4-46.3); Red Blood Count 4.18 M/uL (4.70-6.10); White Blood Count 7.85 K/ul (4.8-10.8)
[2022-11-04 06:28] LABS: Calcium 8.4 mg/dl (8.5-10.1); Magnesium 1.8 mg/dl (1.7-2.4); Potassium 3.8 mmol/L (3.5-5.1)
[2022-11-04 06:34] LABS: BUN Creatinine Ratio 37.9 (10-20); Creatinine Clr Calc Pharmacy 74.5 ml/min; Est GFR (African American) 102.2 ml/min; Est GFR (Non-African American) 88.2 ml/min
--- NOTE | 2022-11-04 07:26 | Hospitalist Progress Note ---
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 Transient Dysarthria -- Recurrent Transient Ischemic Attack vs. ?Hypoxia -- mostly improved -On 1200 on DOA, family reported acute dysarthria with associated mental status changes and hand tremors -- found with an SaO2 of 78% on admission -Workup as follows: - Neck CTA demonstrating R-ICA FMD appearance. Head CT with intraventricular lesion in 4th ventricle at 9mm size, likely benign - Echocardiogram from last admission unremarkable with EF 55-60% - No significant lyte or hematologic abnormalities - MRI is desired, but must wait >6wk from time of pacemaker placement. Consider as outpatient. - Previous TIA last admission suspected to be due to atrial fibrillation - SaO2 76% on arrival - CXR and physical exam without acute findings. -PT/OT will be needed. He will likely need SNF. -Continue aspirin, started atorvastatin 80 mg -Neurology consulted: recurrent TIA or hypoxia. Continue ongoing medical management -Fall, seizure, aspiration precautions, neuro-checks, SS evaluation Elevated troponin -Troponin 132 on admission -No active chest pain and EKG without ischemic injury concerns -Likely demand ischemia, now downtrending History of atrial fibrillation with SVR s/p pacemaker -S/p single chamber pacemaker placed on 10/31 -Pacer interrogation on admission without abnormality -Currently in paced rhythm, hemodynamically stable -Continue home [facility] Recent hospital delirium -Pt was agitated requiring IM antipsychotics last admission, discharged on nightly Seroquel -Continue Seroquel 25 mg HS, melatonin -Frequent reorientation, redirection, 1:1 placed DM2 -A1C 6.3% in 10/2022 -Diet-controlled during last admission -SSI to be ordered once pt can begin eating Hyperlipidemia -Pt not on any statin home medication -10/2022 lipid profile- total 143, TG 38, LDL 53, HDL 82 -Initiated atorvastatin 80 mg in aftermath of second TIA in 1 week Inflammatory arthropathy -Continue prednisone 5 mg daily -No change in management at this time BPH -Continue home dutastercarlita TAM: NPO pending speech/swallow evaluation Code status: DNR/DNI DVT ppx: Home Eliquis Isolation: None Dispo: PT/OT ordered Consults: Neurology (2) Elevated troponin: (3) TIA (transient ischemic attack): Admission and Anticipated Discharge Date Admission Date: November 03, 2022 Supervising Physician Co-Signing Physician Notes 87-year-old male with past medical history pertinent for hyperlipidemia, type 2 diabetes, atrial fibrillation (on Eliquis), inflammatory arthropathy, and recent admission for TIA (10/28/22) s/p recent pacemaker placement (10/31/22) presenting for transient dysarthria. Symptoms are improving. Will monitor VS closely. Patient and family are agreeable to SNF placement following discharge. Case management is assisting. I agree with history, physical, plan, and documentation of resident physician. Subjective Attempted pulling off medical equipment overnight, for which a 1:1 order was placed. Unable to obtain meaningful history due to baseline mentation/mental status. Review of Systems Review of Systems: as per HPI Physical Exam Physical Exam: General: Pleasant but confused 87-year old female who is alert, oriented, and appears in no acute distress. Alert to person-only. HEENT: NCAT. - Eyes - Sclera are white, anicteric, and without injection. - Mouth - MMM - Neck - supple, no appreciable JVD Cardiac: Normal rate and regular rhythm; S1 and S2 present with no murmurs, rubs, or gallops. Pulmonary: Good respiratory effort with symmetric expansion of the chest. No use of accessory muscles. Lungs were clear to auscultation bilaterally with no crackles or wheezes. Extremities: Upper and lower extremities are warm and well perfused. No peripheral edema in the lower extremities bilaterally Neuro: - Cranial Nerves: II-XII grossly in-tact - Motor: UE - Finger, wrist, elbow, and shoulder strength is 4/5 bilaterally. LE - Hip, knee, and ankle strength is 4/5 bilaterally. - Sensation: UE and LE sensation to light touch is grossly intact bilaterally. - Reflexes - Biceps 2+ b/l - [id number]-[id number]: WNL b/l. No dysmetria. Results & Data Results & Data ([facility]) Vital Signs (Past 12 Hours) Vital Signs Temp Pulse Pulse Resp BP Pulse Ox O2 Del Method 11/04/22 06:55 36.5 C 61 16 113/72 96 Room Air 11/04/22 02:57 36.4 C L 67 18 145/76 H 95 Room Air 11/04/22 01:14 66 11/03/22 23:18 36.6 C 59 L 18 126/75 95 Room Air 11/03/22 19:30 36.6 C 64 18 124/81 92 Room Air Resident Activity Tracking Resident Involvement: Resident Care Provided Care Provided: Adult Hospital Medicine
[2022-11-04] MEDS: predniSONE 5 MG TAB PO SCH (10:04)
[2022-11-04] MEDS: CHOLECALCIFEROL 1,000 UNITS 25 MCG TAB PO SCH (10:04)
[2022-11-04] MEDS: ATORVASTATIN 40 MG TAB PO SCH (10:05)
[2022-11-04] MEDS: CEROVITE ADV FORMULA TAB PO SCH (10:05)
[2022-11-04] MEDS: APIXABAN 5 MG TABLET PO SCH ×2 (10:05→20:12)
[2022-11-04] MEDS: DUTASTERIDE 0.5 MG PO SCH (10:05)
[2022-11-04] MEDS: ASPIRIN 81 MG ECTAB PO SCH (10:05)
--- NOTE | 2022-11-04 12:16 | Neurology Consultation ---
Date of Consultation November 04, 2022 Assessment & Plan (1) Stroke-like symptoms: Plan NEUROLOGY CONSULTATION Assessment & Plan: Impression: pt with transient dysarthria in setting of hypoxia that is now resolved. CT head negative. Can't get mri brain for another 6 weeks due to pacer maker placement recently . pt on eliquis for atrial fib. Recommendations: -pt clinically doing well and likely TIA or hypoxia related event, more likely hypoxic event. -at this point, no clear need for MRI as pt clinically not showing focal neurological deficit or LVO signs. pt is already on max medical therapy with Eliquis. not much to add from neurology. continue medical tx and management and avoid hypoxia. call again if new question. Dr. Bryan Andrews MD [facility] Neurology Chief Complaint: dysarthria. History of Present Illness: HPI: pt eating this morning and feeling back to baseline. NAD. chart reviewed. 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 Pt was admitted to [facility] from 10/28 to 11/02 for TIA with dysarthria. Imaging studies unremarkable at that time but MRI was poor quality study compromised by patient's mobility. He did experience junctional bradycardia/atrial fibrillation with SVR for which he underwent dual lead pacemaker placement on 10/31. Pt was also started on aspirin and Eliquis during this admission. He did experience significant delirium and agitation. Pt discharged home on 11/02. Yesterday evening, pt was brought home by and nephew. He had an uneventful night and this morning around 11:50 AM, was noticed to have sudden onset slurred/garbled speech. He also dropped his head to the side and was shaking his hands. At this time he was unresponsive to his and nephew. Around 11:53 AM pt opened his eyes and was able to recognize his surroundings. He did endorse an occipital headache wrapping around both sides of his forehead and fatigue. He w as subsequently brought by EMS to the hospital. On arrival to the ED, pt noted to be 78% on O2 and briefly received 2-4L O2 via NC but he was quickly weaned to RA. Was hemodynamically stable and in paced rhythm on monitor with no abnormalities on pacer interrogation. CBC, BMP unremarkable. Troponin 132 without active chest pain. Head/neck CTA, head CT, CXR were negative. Case was discussed between ER physician and on-call neurologist who advised against any anti-seizure medication at this time. Past Medical History: See chart Meds: See chart I personally reviewed all of the medications Social & Family History: See chart Review of Systems: Per initial HPI on admission. Physical Exam: GEN: NAD HEENT: Normocephalic Neuro: Mental status:A & O x 3.No dysarthria or aphasia.No neglect. Fluent speech. No apraxia Cranial Nerves:II-XII intact Motor:Normal bulk and tone,5/5 strength x 4 extremities Coordination:Intact Reflexes: down going toes natalia Sensation: Intact Chart reviewed I have spent more than 50% educating patient about potential diagnosis and neurological evaluation and coordinating care with patient's treatment team. Total time spent (including chart review and coordination of care): 80 min (this includes chart review). History of Present Illness Attending Physician: Noni Ness DO Allergies Allergy/AdvReac Type Severity Reaction Status Date / Time ibuprofen Allergy Unknown swelling Verified 10/28/22 15:36 Home Medications Medication Instructions Recorded Confirmed Type htjselzu-cim-bcxhs acid 300 1 tab PO DAILY #30 tabs 06/13/19 11/03/22 Rx mcg-lycopene 600 mcg-lutein 300 mcg tablet (Centrum Silver Ultra Men's) prednisone 5 mg tablet 5 mg PO QAM 06/13/19 11/03/22 History risedronate 35 mg tablet 35 mg PO WK 06/13/19 11/03/22 History mometasone 0.1 % topical cream 1 applic topical DAILY #159 grams 06/07/22 11/03/22 Rx dutasteride 0.5 mg capsule 0.5 mg PO DAILY #90 caps 09/14/22 11/03/22 Rx (Avodart) cholecalciferol (vitamin D3) 25 25 mcg PO DAILY 10/28/22 11/03/22 History mcg (1,000 unit) tablet (Vitamin D3) nystatin-triamcinolone 100,000 1 applic topical BID PRN as needed 10/28/22 11/03/22 History unit/g-0.1 % topical cream apixaban 5 mg tablet (Eliquis) 5 mg PO BID #60 tabs 11/01/22 11/03/22 Rx aspirin 81 mg tablet,delayed 81 mg PO QAM #30 tabs 11/02/22 11/03/22 Rx release melatonin 3 mg tablet 3 mg PO HS #30 tabs 11/02/22 11/03/22 Rx quetiapine 25 mg tablet 12.5 mg PO HS #30 tabs 11/02/22 11/03/22 Rx Patient History Medical History Acute gout (07/12/14) Anemia Arthralgia Cellulitis of hand, right Crush injury to finger Degenerative arthritis of knee, bilateral Diabetes mellitus Fasciitis (07/01/14) Finger laceration Fracture of pelvis History of diverticulitis Hyperlipidemia Inflammatory polyarthropathy Left arm cellulitis Metabolic disorder Surgical History H/O hand surgery repaired Tenotomy flexor S/P cataract surgery bilateral Family History Brother Prostate cancer Sister Diabetes type 2 Denies family history of Ovarian cancer Myocardial infarction Breast cancer Colorectal cancer Social History Smoking Status: Unknown if ever smoked Second Hand Exposure: No; Preferred Language: Serbian Communication Ability: Effective Revenue Analyst Required: No Beliefs That Will Affect Care: None marital status: Current Living Situation: Spouse current occupational status: retired Feels Safe at Home: Yes Seatbelt Use: always Assistive Devices: Cane, Denture - Upper, Denture - Lower, Glasses and Walker Results & Data ([facility]) Vital Signs (Past 12 Hours) Vital Signs Temp Pulse Pulse Resp BP Pulse Ox O2 Del Method 11/04/22 10:47 36.6 C 68 19 125/61 94 Room Air 11/04/22 07:45 70 11/04/22 07:45 Room Air 11/04/22 06:55 36.5 C 61 16 113/72 96 Room Air 11/04/22 02:57 36.4 C L 67 18 145/76 H 95 Room Air 11/04/22 01:14 66
--- NOTE | 2022-11-04 15:02 | Electrocardiogram Report ---
Test Reason : Blood Pressure : / mmHG Vent. Rate : 071 BPM Atrial Rate : 136 BPM P-R Int : 000 ms QRS Dur : 134 ms QT Int : 476 ms P-R-T Axes : 000 -27 142 degrees QTc Int : 517 ms Ventricular-paced rhythm with occasional Premature ventricular complexes Abnormal ECG When compared with ECG of 01-NOV-2022 08:49, Previous ECG has undetermined rhythm, needs review Confirmed by Adrian Murphy ([id number]) on 11/04/2022 3:02:17 PM Referred By: Confirmed By:Armond Murphy
--- NOTE | 2022-11-04 15:20 | Pharmacy Report ---
Pharmacist Stroke Counseling - Date of Service November 04, 2022 - Scope: Pharmacy has been consulted to provide medication discharge counseling for this patient admitted with possible transient ischemic attack as per the Pharmacist Discharge Counseling for Stroke Patients Protocol. - Medications on Discharge: Home Medications Medication Instructions Recorded Confirmed prednisone 5 mg tablet 5 mg PO QAM 06/13/19 11/03/22 risedronate 35 mg tablet 35 mg PO WK 06/13/19 11/03/22 cholecalciferol (vitamin D3) 25 25 mcg PO DAILY 10/28/22 11/03/22 mcg (1,000 unit) tablet (Vitamin D3) nystatin-triamcinolone 100,000 1 applic topical BID PRN as needed 10/28/22 11/03/22 unit/g-0.1 % topical cream New Rx's Medication Instructions Recorded hbzgiudl-kty-jsjtu acid 300 1 tab PO DAILY #30 tabs 06/13/19 mcg-lycopene 600 mcg-lutein 300 mcg tablet (Centrum Silver Ultra Men's) mometasone 0.1 % topical cream 1 applic topical DAILY #159 grams 06/07/22 dutasteride 0.5 mg capsule 0.5 mg PO DAILY #90 caps 09/14/22 (Avodart) apixaban 5 mg tablet (Eliquis) 5 mg PO BID #60 tabs 11/01/22 aspirin 81 mg tablet,delayed 81 mg PO QAM #30 tabs 11/02/22 release melatonin 3 mg tablet 3 mg PO HS #30 tabs 11/02/22 quetiapine 25 mg tablet 12.5 mg PO HS #30 tabs 11/02/22 - Outcome: Pharmacy attempted to contact patient on 11/03/22. Left voicemail. Patient re-admitted on 11/04/22, therefore, post discharge counseling has not been completed. Thank you for allowing pharmacy to be involved in the care of this patient. Please call [phone] with any additional questions
[2022-11-04] MEDS ORDERED: SODIUM CHLORIDE 0.9% 1000ML 500 ML IV ONE (18:17)
[2022-11-04] MEDS: MELATONIN 3 MG TAB PO SCH (20:12)
[2022-11-04] MEDS: QUEtiapine FUMARATE 25 MG TABLET PO SCH (20:13)
[2022-11-05] MEDS: DUTASTERIDE 0.5 MG PO SCH (08:40)
[2022-11-05] MEDS: CEROVITE ADV FORMULA TAB PO SCH (08:40)
[2022-11-05] MEDS: APIXABAN 5 MG TABLET PO SCH ×2 (08:41→20:20)
[2022-11-05] MEDS: ASPIRIN 81 MG ECTAB PO SCH (08:41)
[2022-11-05] MEDS: ATORVASTATIN 40 MG TAB PO SCH (08:41)
[2022-11-05] MEDS: CHOLECALCIFEROL 1,000 UNITS 25 MCG TAB PO SCH (08:41)
[2022-11-05] MEDS: INSULIN ASPART PER UNIT SC SCH ×4 (08:56→20:20)
[2022-11-05] MEDS: predniSONE 5 MG TAB PO SCH (08:57)
--- NOTE | 2022-11-05 09:55 | Hospitalist Progress Note ---
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 Transient Dysarthria -- Recurrent Transient Ischemic Attack vs. ?Hypoxia -- mostly improved -On 1200 on DOA, family reported acute dysarthria with associated mental status changes and hand tremors -- found with an SaO2 of 78% on admission -Workup as follows: - Neck CTA demonstrating R-ICA FMD appearance. Head CT with intraventricular lesion in 4th ventricle at 9mm size, likely benign - Echocardiogram from last admission unremarkable with EF 55-60% - No significant lyte or hematologic abnormalities - MRI is desired, but must wait >6wk from time of pacemaker placement. Consider as outpatient. - Previous TIA last admission suspected to be due to atrial fibrillation - SaO2 76% on arrival - CXR and physical exam without acute findings. -PT/OT will be needed. Placement pending. -Continue aspirin, started atorvastatin 80 mg -Neurology consulted: recurrent TIA or hypoxia. Continue ongoing medical management -Fall, seizure, aspiration precautions, neuro-checks, SS evaluation Elevated troponin -Troponin 132 on admission -No active chest pain and EKG without ischemic injury concerns -Likely demand ischemia, now downtrending History of atrial fibrillation with SVR s/p pacemaker -S/p single chamber pacemaker placed on 10/31 -Pacer interrogation on admission without abnormality -Currently in paced rhythm, hemodynamically stable -Continue home [facility] Recent hospital delirium -Pt was agitated requiring IM antipsychotics last admission, discharged on nightly Seroquel -Continue Seroquel 25 mg HS, melatonin -Frequent reorientation, redirection, 1:1 placed DM2 -A1C 6.3% in 10/2022 -Diet-controlled during last admission -SSI to be ordered once pt can begin eating Hyperlipidemia -Pt not on any statin home medication -10/2022 lipid profile- total 143, TG 38, LDL 53, HDL 82 -Initiated atorvastatin 80 mg in aftermath of second TIA in 1 week Inflammatory arthropathy -Continue prednisone 5 mg daily -No change in management at this time BPH -Continue home dutasteride CADYI: NPO pending speech/swallow evaluation Code status: DNR/DNI DVT ppx: Home Eliquis Isolation: None Dispo: PT/OT ordered, pending placement Consults: Neurology (2) Elevated troponin: (3) TIA (transient ischemic attack): Admission and Anticipated Discharge Date Admission Date: November 04, 2022 Supervising Physician Co-Signing Physician Notes 87-year-old male with past medical history pertinent for hyperlipidemia, type 2 diabetes, atrial fibrillation (on Eliquis), inflammatory arthropathy, and recent admission for TIA (10/28/22) s/p recent pacemaker placement (10/31/22) presenting for transient dysarthria. Symptoms are stable. On exam, patient seated comfortably alert in bed, mucosal membranes moist, conjunctiva clear, dysarthria present, lungs clear bilaterally to anterior auscultation, RRR with systolic murmur II LSB, bowel sounds present all quadrants, no tenderness of abdomen. Case management are assisting for rehab placement. Patient examined independently, agree with history, physical, plan, and documentation of resident physician. Subjective Patient sleeping comfortably this AM with 1:1 sitter at bedside. Per sitter report, patient did well overnight. He "dozes" frequently but when awake asks where his is/tries to get out of bed but is easily redirectable. Per sitter, patient has not voiced any concerns, symptoms, or complaints. He is able to urinate with bedside urinal independently w/o difficulty. He did refuse breakfast this AM. Review of Systems Review of Systems: as per HPI Physical Exam Physical Exam: GENERAL: No acute distress. Sleeping comfortably. Vital signs reviewed as above. HENT: Moist mucous membranes. RESPIRATORY: No acute respiratory distress. No increased work of breathing. SKIN: Warm, dry. See attending attestation for additional PE details. Results & Data Results & Data ([facility]) Vital Signs (Past 12 Hours) Vital Signs Temp Pulse Pulse Resp BP Pulse Ox O2 Del Method 11/05/22 08:30 60 11/05/22 08:30 Room Air 11/05/22 08:09 36.3 C L 61 19 120/70 96 Room Air 11/05/22 03:55 36.5 C 60 18 150/74 H 96 Room Air 11/04/22 22:02 60 11/04/22 23:05 36.6 C 76 18 138/81 96 Room Air Laboratory Results 11/05/22 11/05/22 11/05/22 Range/Units 16:27 11:18 07:40 POC Glucose 129 H 115 H 132 H (70-99) mg/dl 11/04/22 Range/Units 20:13 POC Glucose 139 H (70-99) mg/dl Resident Activity Tracking Resident Involvement: Resident Care Provided Care Provided: Adult [facility] Medicine
[2022-11-05] MEDS: MELATONIN 3 MG TAB PO SCH (20:18)
[2022-11-05] MEDS: QUEtiapine FUMARATE 25 MG TABLET PO SCH (20:19)
--- NOTE | 2022-11-06 07:44 | Hospitalist Progress Note ---
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 Transient Dysarthria -- Recurrent Transient Ischemic Attack vs. ?Hypoxia -- mostly improved -On 1200 on day of admission (11/03/22), family reported acute dysarthria with associated mental status changes and hand tremors -- found with an SaO2 of 78% on admission -Workup as follows: - Neck CTA demonstrating R-ICA FMD appearance. Head CT with intraventricular lesion in 4th ventricle at 9mm size, likely benign - Echocardiogram from last admission unremarkable with EF 55-60% - No significant lyte or hematologic abnormalities - MRI is desired, but must wait >6wk from time of pacemaker placement. Consider as outpatient. - Previous TIA last admission suspected to be due to atrial fibrillation - SaO2 76% on arrival - CXR and physical exam without acute findings. -PT/OT evals completed and are ongoing. Placement pending. -Continue aspirin, continue atorvastatin 80 mg -Neurology consulted: recurrent TIA or hypoxia. Continue ongoing medical management -Fall, seizure, aspiration precautions, neuro-checks, SS evaluation Elevated troponin -Troponin 132 on admission -No active chest pain and EKG without ischemic injury concerns -Likely demand ischemia, now downtrending History of atrial fibrillation with SVR s/p pacemaker -S/p single chamber pacemaker placed on 10/31 -Pacer interrogation on admission without abnormality -Currently in paced rhythm, hemodynamically stable -Continue home Eliquis Recent hospital delirium -Pt was agitated requiring IM antipsychotics last admission, discharged on nightly Seroquel -Continue Seroquel 25 mg HS, melatonin -Frequent reorientation, redirection, 1:1 placed DM2 -A1C 6.3% in 10/2022 -Diet-controlled during last admission -SSI for glycemic control Hyperlipidemia -Pt not on any statin home medication -10/2022 lipid profile- total 143, TG 38, LDL 53, HDL 82 -Continue atorvastatin 80 mg QD Inflammatory arthropathy -Continue prednisone 5 mg daily -No change in management at this time BPH -Continue home dutasteride FENGI: regular diet Code status: DNR/DNI DVT ppx: Home Eliquis Isolation: None Dispo: PT/OT ordered, pending placement (family is hopeful for [facility]) Consults: Neurology (2) Elevated troponin: (3) TIA (transient ischemic attack): Admission and Anticipated Discharge Date Admission Date: November 04, 2022 Supervising Physician Co-Signing Physician Notes 87-year-old male with past medical history pertinent for hyperlipidemia, type 2 diabetes, atrial fibrillation (on Eliquis), inflammatory arthropathy, and recent admission for TIA (10/28/22) s/p recent pacemaker placement (10/31/22) presenting for transient dysarthria. Dysarthria improving. Monitor BPs. Initiated maintenance fluids x 1L. PT saw patient and recommending SNF, case management w orking with family for placement. Patient examined independently, agree with history, physical, plan, and documentation of resident physician. Subjective Patient seen and evaluated at bedside this morning. He is sitting up in bed with 1:1 sitter at bedside. Patient w/ continued dysarthria but clear improvement from yesterday. Patient states that he is not hungry for breakfast this morning, but he denies headache, lightheadedness, dizziness, CP, SOB, abdominal pain, n/v, pain/swelling in his BLE. Review of Systems Review of Systems: as per HPI Physical Exam Physical Exam: GENERAL: No acute distress. Elderly male appears stated age but otherwise well developed and well nourished. Vital signs reviewed as above. EYES: EOMI. Anicteric sclerae. HENT: Moist mucous membranes. RESPIRATORY: Clear to auscultation bilaterally. No wheezing, rales, or rhonchi. CARDIOVASCULAR: Regular rate and rhythm. + murmur. No JVD. ABDOMEN: Soft, non-tender and non-distended. Normal bowel sounds. EXTREMITIES: No edema. Non-tender. SKIN: Warm, dry. NEUROLOGIC: + dysarthria. 5/5 strength in BUE and BLE. PSYCHIATRIC: Cooperative. Appropriate mood and affect. Results & Data Results & Data ([facility]) Vital Signs (Past 12 Hours) Vital Signs Temp Pulse Pulse Resp BP Pulse Ox O2 Del Method 11/05/22 21:59 62 11/06/22 03:27 36.6 C 67 18 106/79 96 Room Air 11/05/22 23:22 36.5 C 63 18 127/72 96 Room Air Laboratory Results 11/06/22 11/06/22 11/05/22 Range/Units 11:23 08:42 20:12 POC Glucose 232 H 95 98 (70-99) mg/dl 11/05/22 Range/Units 16:27 POC Glucose 129 H (70-99) mg/dl Resident Activity Tracking Resident Involvement: Resident Care Provided Care Provided: Adult Hospital Medicine
[2022-11-06] MEDS: APIXABAN 5 MG TABLET PO SCH ×2 (08:39→20:48)
[2022-11-06] MEDS: DUTASTERIDE 0.5 MG PO SCH (08:39)
[2022-11-06] MEDS: ASPIRIN 81 MG ECTAB PO SCH (08:39)
[2022-11-06] MEDS: ATORVASTATIN 40 MG TAB PO SCH (08:39)
[2022-11-06] MEDS: predniSONE 5 MG TAB PO SCH (08:39)
[2022-11-06] MEDS: CHOLECALCIFEROL 1,000 UNITS 25 MCG TAB PO SCH (08:39)
[2022-11-06] MEDS: CEROVITE ADV FORMULA TAB PO SCH (08:39)
[2022-11-06] MEDS: INSULIN ASPART PER UNIT SC SCH ×4 (08:50→20:48)
[2022-11-06] MEDS: SODIUM CHLORIDE 0.9% 1000ML 1,000 ML IV SCH ×2 (11:38→21:11)
[2022-11-06] MEDS: MELATONIN 3 MG TAB PO SCH (20:48)
[2022-11-06] MEDS: QUEtiapine FUMARATE 25 MG TABLET PO SCH (20:48)
[2022-11-07] MEDS: SODIUM CHLORIDE 0.9% 1000ML 1,000 ML IV SCH (06:39)
[2022-11-07 07:40] LABS: Hematocrit (blood only) 35.4 % (42.0-52.0); Hemoglobin 12.6 g/dl (14.0-18.0); Mean Corpuscular Hemoglobin 32.7 pg (25.0-34.0); Mean Corpuscular Hgb Conc 35.6 g/dL (32.0-36.0); Mean Corpuscular Volume 91.9 fL (80.0-100.0); Mean Platelet Volume 11.3 fL (9.4-12.4); Platelet Count 131 K/uL (130-400); RDW Coefficient of Variation 13.3 % (11.5-14.5); Red Blood Count 3.85 M/uL (4.70-6.10); White Blood Count 6.73 K/ul (4.8-10.8)
[2022-11-07 07:55] LABS: Calcium 7.9 mg/dl (8.5-10.1); Potassium 3.8 mmol/L (3.5-5.1)
[2022-11-07 08:01] LABS: BUN Creatinine Ratio 34.6 (10-20); Creatinine Clr Calc Pharmacy 62.3 ml/min; Est GFR (African American) 93.9 ml/min
[2022-11-07] MEDS: CEROVITE ADV FORMULA TAB PO SCH (08:37)
[2022-11-07] MEDS: ASPIRIN 81 MG ECTAB PO SCH (08:37)
[2022-11-07] MEDS: predniSONE 5 MG TAB PO SCH (08:37)
[2022-11-07] MEDS: APIXABAN 5 MG TABLET PO SCH ×2 (08:37→21:08)
[2022-11-07] MEDS: CHOLECALCIFEROL 1,000 UNITS 25 MCG TAB PO SCH (08:37)
[2022-11-07] MEDS: ATORVASTATIN 40 MG TAB PO SCH (08:37)
[2022-11-07] MEDS: DUTASTERIDE 0.5 MG PO SCH (08:39)
[2022-11-07] MEDS: INSULIN ASPART PER UNIT SC SCH ×4 (09:02→20:56)
--- NOTE | 2022-11-07 13:28 | Hospitalist Progress Note ---
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 Transient Dysarthria -- Recurrent Transient Ischemic Attack vs. ?Hypoxia -- mostly improved -On 1200 on day of admission (11/03/22), family reported acute dysarthria with associated mental status changes and hand tremors -- found with an SaO2 of 78% on admission -Workup as follows: - Neck CTA demonstrating R-ICA FMD appearance. Head CT with intraventricular lesion in 4th ventricle at 9mm size, likely benign - Echocardiogram from last admission unremarkable with EF 55-60% - No significant lyte or hematologic abnormalities - MRI is desired, but must wait >6wk from time of pacemaker placement. Consider as outpatient. - Previous TIA last admission suspected to be due to atrial fibrillation - SaO2 76% on arrival - CXR and physical exam without acute findings. -PT/OT evals completed and are ongoing. Placement pending. Case management following. -Continue aspirin, started atorvastatin 80 mg -Neurology consulted: recurrent TIA or hypoxia. Continue ongoing medical management -Fall, seizure, aspiration precautions, neuro-checks, SS evaluation Elevated troponin, consider resolved -Troponin 132 on admission -No active chest pain and EKG without ischemic injury concerns -Likely demand ischemia, now downtrending History of atrial fibrillation with SVR s/p pacemaker -S/p single chamber pacemaker placed on 10/31 -Pacer interrogation on admission without abnormality -Currently in paced rhythm, hemodynamically stable -Continue home [facility] delirium -Pt was agitated requiring IM antipsychotics last admission, discharged on nightly Seroquel -Continue Seroquel 25 mg HS, melatonin -Frequent reorientation, redirection, 1:1 placed DM2 -A1C 6.3% in 10/2022 -Diet-controlled during last admission -SSI to be ordered once pt can begin eating Hyperlipidemia -Pt not on any statin home medication -10/2022 lipid profile- total 143, TG 38, LDL 53, HDL 82 -Initiated atorvastatin 80 mg in aftermath of second TIA in 1 week Inflammatory arthropathy -Continue prednisone 5 mg daily -No change in management at this time BPH -Continue home dutasteride YONATAN: Carb Consistent Code status: DNR/DNI DVT ppx: Home Eliquis Isolation: None Dispo: PT/OT ordered, pending placement (family is hopeful for [place]) Consults: Neurology (2) Elevated troponin: (3) TIA (transient ischemic attack): Admission and Anticipated Discharge Date Admission Date: November 04, 2022 Supervising Physician Co-Signing Physician Notes I personally examined the patient and verified all kemp points of history and exam, discussed case, and agree with decision making with Dr Alcantara no complaints. awaiting SNF Vitals noted, in general he is awake pleasant no distress. HEENT normocephalic atraumatic mucous membranes moist. Breathing unlabored no accessory muscle use good effort. Skin shows no rashes no pallor or icterus. TIA versus transient symptoms related to hypoxiaseems to have improved. Awaiting SNF. Otherwise as above Subjective Patient seen at bedside this morning. No acute events reported overnight. Patient asleep upon my arrival. Easily arousable and alert. No new complaints at this time. Patient comfortable. Review of Systems Review of Systems: All systems reviewed & are unremarkable except as noted in HPI & below Physical Exam Constitutional: WD/WN, vitals as above Eyes: + anicteric sclerae Neck: trachea midline, no thyromegaly Respiratory: normal respiratory effort, lungs clear to auscultation Cardiovascular: Rate/Rhythm: regular rhythm; + abnormal rate Heart Sounds: + murmur Gastrointestinal (Abdomen): normal bowel sounds, soft, nontender, no hepatosplenomegaly Musculoskeletal: no cyanosis or clubbing, extremities motor strength 5/5 Skin: no rashes, warm and dry Neurologic: moves all extremities Psychiatric: Orientation: alert Lymphatic: no cervical lymphadenopathy Results & Data Results & Data ([facility]) Vital Signs (Past 12 Hours) Vital Signs Temp Pulse Pulse Resp BP Pulse Ox O2 Del Method 11/07/22 11:30 36.4 C L 16 117/70 96 Room Air 11/07/22 07:30 36.3 C L 61 16 120/74 97 Room Air 11/07/22 07:08 61 11/07/22 03:05 36.7 C 75 18 144/84 H 95 Room Air
--- NOTE | 2022-11-07 17:21 | Billing Data ---
Date of Service November 07, 2022 Coding Level of Care Code 02224 SUB INP/OBS CARE
[2022-11-07] MEDS: MELATONIN 3 MG TAB PO SCH (21:08)
[2022-11-07] MEDS: QUEtiapine FUMARATE 25 MG TABLET PO SCH (21:09)
[2022-11-08] MEDS ORDERED: MELATONIN 3 MG TAB PO STA (02:03)
[2022-11-08 08:23] LABS: Creatinine Clr Calc Pharmacy 72.1 ml/min; Est GFR (African American) 99.7 ml/min; Est GFR (Non-African American) 86.1 ml/min
[2022-11-08] MEDS: predniSONE 5 MG TAB PO SCH (08:50)
[2022-11-08] MEDS: DUTASTERIDE 0.5 MG PO SCH (08:50)
[2022-11-08] MEDS: APIXABAN 5 MG TABLET PO SCH ×2 (08:50→20:20)
[2022-11-08] MEDS: ASPIRIN 81 MG ECTAB PO SCH (08:50)
[2022-11-08] MEDS: ATORVASTATIN 40 MG TAB PO SCH (08:50)
[2022-11-08] MEDS: CEROVITE ADV FORMULA TAB PO SCH (08:51)
[2022-11-08] MEDS: CHOLECALCIFEROL 1,000 UNITS 25 MCG TAB PO SCH (08:51)
[2022-11-08] MEDS: INSULIN ASPART PER UNIT SC SCH ×4 (09:48→21:11)
--- NOTE | 2022-11-08 12:18 | Hospitalist Progress Note ---
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 Transient Dysarthria -- Recurrent Transient Ischemic Attack vs. ?Hypoxia -- mostly improved -On 1200 on day of admission (11/03/22), family reported acute dysarthria with associated mental status changes and hand tremors -- found with an SaO2 of 78% on admission -Workup as follows: - Neck CTA demonstrating R-ICA FMD appearance. Head CT with intraventricular lesion in 4th ventricle at 9mm size, likely benign - Echocardiogram from last admission unremarkable with EF 55-60% - No significant lyte or hematologic abnormalities - MRI is desired, but must wait >6wk from time of pacemaker placement. Consider as outpatient. - Previous TIA last admission suspected to be due to atrial fibrillation - SaO2 76% on arrival - CXR and physical exam without acute findings. -PT/OT evals completed and are ongoing. Placement pending. Case management following. -Continue aspirin, started atorvastatin 80 mg -Neurology consulted: recurrent TIA or hypoxia. Continue ongoing medical management -Fall, seizure, aspiration precautions, neuro-checks, SS evaluation Elevated troponin, consider resolved -Troponin 132 on admission -No active chest pain and EKG without ischemic injury concerns -Likely demand ischemia, now downtrending History of atrial fibrillation with SVR s/p pacemaker -S/p single chamber pacemaker placed on 10/31 -Pacer interrogation on admission without abnormality -Currently in paced rhythm, hemodynamically stable -Continue home [facility] delirium -Pt was agitated requiring IM antipsychotics last admission, discharged on nightly Seroquel -Continue Seroquel 25 mg HS, melatonin -Frequent reorientation, error in previous documentation: has needed 1:1 in several days. This has been discontinued. DM2 -A1C 6.3% in 10/2022 -Diet-controlled during last admission -SSI to be ordered once pt can begin eating Hyperlipidemia -Pt not on any statin home medication -10/2022 lipid profile- total 143, TG 38, LDL 53, HDL 82 -Initiated atorvastatin 80 mg in aftermath of second TIA in 1 week Inflammatory arthropathy -Continue prednisone 5 mg daily -No change in management at this time BPH -Continue home dutasteride FENGI: Carb Consistent Code status: DNR/DNI DVT ppx: Home Eliquis Isolation: None Dispo: PT/OT ordered, pending placement (family is hopeful for [facility]) Consults: Neurology (2) Elevated troponin: (3) TIA (transient ischemic attack): Admission and Anticipated Discharge Date Admission Date: November 04, 2022 Supervising Physician Co-Signing Physician Notes I personally examined the patient and verified all kemp points of history and exam, discussed case, and agree with decision making with Dr Alcantara resting comfortably. awaiting SNF Vitals noted, in general heresting comfortably no distress. HEENT normocephalic atraumatic mucous membranes moist. Breathing unlabored no accessory muscle use good effort. Skin shows no rashes no pallor or icterus. TIA versus transient symptoms related to hypoxia improved. Awaiting SNF, stable when approved/available. Otherwise as above Subjective Patient seen at bedside this morning. No acute events reported overnight. Patient ultimately sleeping at the time I saw him. Limited to no new HPI at this time. Review of Systems Review of Systems: Per HPI Physical Exam Constitutional: WD/WN, vitals as above Eyes: + anicteric sclerae Neck: trachea midline, no thyromegaly Respiratory: normal respiratory effort, lungs clear to auscultation Cardiovascular: Rate/Rhythm: regular rhythm; + abnormal rate Heart Sounds: + murmur Gastrointestinal (Abdomen): normal bowel sounds, soft, nontender, no hepatosplenomegaly Musculoskeletal: no cyanosis or clubbing, extremities motor strength 5/5 Skin: no rashes, warm and dry Neurologic: moves all extremities Psychiatric: Orientation: alert Lymphatic: no cervical lymphadenopathy Results & Data Results & Data ([facility]) Vital Signs (Past 12 Hours) Vital Signs Temp Pulse Resp BP Pulse Ox Pulse Ox O2 Del Method 11/08/22 07:53 36.3 C L 59 L 18 125/73 96 Room Air 11/08/22 00:30 96 11/08/22 00:30 Room Air O2 Del Method 11/08/22 07:53 11/08/22 00:30 Room Air 11/08/22 00:30
--- NOTE | 2022-11-08 18:59 | Billing Data ---
Date of Service November 08, 2022 Coding Level of Care Code 76603 SUB INP/OBS CARE
[2022-11-08] MEDS: QUEtiapine FUMARATE 25 MG TABLET PO SCH (20:22)
[2022-11-08] MEDS: MELATONIN 3 MG TAB PO SCH (20:23)
[2022-11-09] MEDS: INSULIN ASPART PER UNIT SC SCH ×4 (08:44→21:32)
[2022-11-09] MEDS: CEROVITE ADV FORMULA TAB PO SCH (08:46)
[2022-11-09] MEDS: DUTASTERIDE 0.5 MG PO SCH (08:46)
[2022-11-09] MEDS: ASPIRIN 81 MG ECTAB PO SCH (08:46)
[2022-11-09] MEDS: ATORVASTATIN 40 MG TAB PO SCH (08:46)
[2022-11-09] MEDS: predniSONE 5 MG TAB PO SCH (08:46)
[2022-11-09] MEDS: APIXABAN 5 MG TABLET PO SCH ×2 (08:46→21:29)
[2022-11-09] MEDS: CHOLECALCIFEROL 1,000 UNITS 25 MCG TAB PO SCH (08:46)
--- NOTE | 2022-11-09 13:41 | Hospitalist Progress Note ---
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 Transient Dysarthria -- Recurrent Transient Ischemic Attack vs. ?Hypoxia -- mostly improved -On 1200 on day of admission (11/03/22), family reported acute dysarthria with associated mental status changes and hand tremors -- found with an SaO2 of 78% on admission -Workup as follows: - Neck CTA demonstrating R-ICA FMD appearance. Head CT with intraventricular lesion in 4th ventricle at 9mm size, likely benign - Echocardiogram from last admission unremarkable with EF 55-60% - No significant lyte or hematologic abnormalities - MRI is desired, but must wait >6wk from time of pacemaker placement. Consider as outpatient. - Previous TIA last admission suspected to be due to atrial fibrillation - SaO2 76% on arrival - CXR and physical exam without acute findings. -PT/OT evals completed and are ongoing. Placement pending. Case management following. -Continue aspirin, started atorvastatin 80 mg -Neurology consulted: recurrent TIA or hypoxia. Continue ongoing medical management -Fall, seizure, aspiration precautions, neuro-checks, SS evaluation Elevated troponin, consider resolved -Troponin 132 on admission -No active chest pain and EKG without ischemic injury concerns -Likely demand ischemia, now downtrending History of atrial fibrillation with SVR s/p pacemaker -S/p single chamber pacemaker placed on 10/31 -Continue home Eliquis Recent hospital delirium -Pt was agitated requiring IM antipsychotics last admission, discharged on nightly Seroquel -Continue Seroquel 25 mg HS, melatonin -Frequent reorientation, error in previous documentation: has not needed 1:1 in several days. This has been discontinued. DM2 -A1C 6.3% in 10/2022 -Diet-controlled during last admission -SSI Hyperlipidemia -Pt not on any statin home medication -Initiated atorvastatin 80 mg in aftermath of second TIA in 1 week, continue Inflammatory arthropathy -Continue prednisone 5 mg daily BPH -Continue home dutasteride FENGI: Carb Consistent Code status: DNR/DNI DVT ppx: Home Eliquis Isolation: None Dispo: PT/OT ordered, pending placement (family is hopeful for [facility]) Consults: Neurology (2) Elevated troponin: (3) TIA (transient ischemic attack): Admission and Anticipated Discharge Date Admission Date: November 04, 2022 Supervising Physician Co-Signing Physician Notes I personally examined the patient and verified all kemp points of history and exam, discussed case, and agree with decision making with Dr Alcantara Sitting in the chair. No complaints. Awaiting SNF. Seems pleasantly confused today. Vitals noted, in general sitting comfortably no distress. HEENT normocephalic atraumatic mucous membranes moist. Breathing unlabored no accessory muscle use good effort. Skin shows no rashes no pallor or icterus. TIA versus transient symptoms related to hypoxia improved. Awaiting SNF, stable when approved/available. Otherwise as above. No changes today. Subjective Patient seen at bedside this morning. No acute events reported overnight. Patient resting comfortably upon my arrival. Awoken and alert. No new complaints today. Feeling overall well. Awaiting SNF placement. Review of Systems Review of Systems: All systems reviewed & are unremarkable except as noted in HPI & below Physical Exam Constitutional: WD/WN, vitals as above Eyes: + anicteric sclerae Respiratory: normal respiratory effort, lungs clear to auscultation normal respiratory effort Cardiovascular: Rate/Rhythm: regular rate and regular rhythm Gastrointestinal (Abdomen): Inspection/Auscultation: abdomen normal to inspection Musculoskeletal: Head/Neck/Chest: normocephalic and head atraumatic Skin: no rashes, warm and dry Results & Data Results & Data ([facility]) Vital Signs (Past 12 Hours) Vital Signs Temp Pulse Resp BP Pulse Ox Pulse Ox O2 Del Method 11/09/22 07:00 36.3 C L 60 16 124/72 97 Room Air 11/09/22 01:41 96 O2 Del Method 11/09/22 07:00 11/09/22 01:41 Room Air
--- NOTE | 2022-11-09 18:51 | Billing Data ---
Date of Service November 09, 2022 Coding Level of Care Code 87571 SUB INP/OBS CARE
[2022-11-09] MEDS: QUEtiapine FUMARATE 25 MG TABLET PO SCH (21:29)
[2022-11-09] MEDS: MELATONIN 3 MG TAB PO SCH (21:32)
[2022-11-10] MEDS: INSULIN ASPART PER UNIT SC SCH ×4 (08:58→20:44)
[2022-11-10] MEDS: APIXABAN 5 MG TABLET PO SCH ×2 (09:43→20:05)
[2022-11-10] MEDS: predniSONE 5 MG TAB PO SCH (09:43)
[2022-11-10] MEDS: ASPIRIN 81 MG ECTAB PO SCH (09:43)
[2022-11-10] MEDS: ATORVASTATIN 40 MG TAB PO SCH (09:44)
[2022-11-10] MEDS: CHOLECALCIFEROL 1,000 UNITS 25 MCG TAB PO SCH (09:44)
[2022-11-10] MEDS: DUTASTERIDE 0.5 MG PO SCH (09:45)
[2022-11-10] MEDS: CEROVITE ADV FORMULA TAB PO SCH (09:45)
--- NOTE | 2022-11-10 16:57 | Hospitalist Progress Note ---
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 Transient Dysarthria -- Recurrent Transient Ischemic Attack vs. ?Hypoxia -- mostly improved -On 1200 on day of admission (11/03/22), family reported acute dysarthria with associated mental status changes and hand tremors -- found with an SaO2 of 78% on admission -Workup as follows: - Neck CTA demonstrating R-ICA FMD appearance. Head CT with intraventricular lesion in 4th ventricle at 9mm size, likely benign - Echocardiogram from last admission unremarkable with EF 55-60% - No significant lyte or hematologic abnormalities - MRI is desired, but must wait >6wk from time of pacemaker placement. Consider as outpatient. - Previous TIA last admission suspected to be due to atrial fibrillation - SaO2 76% on arrival - CXR and physical exam without acute findings. -PT/OT evals completed and are ongoing. Placement pending. Case management following. -Continue aspirin, started atorvastatin 80 mg -Neurology consulted: recurrent TIA or hypoxia. Continue ongoing medical management -Fall, seizure, aspiration precautions, neuro-checks, SS evaluation Elevated troponin, consider resolved -Troponin 132 on admission -No active chest pain and EKG without ischemic injury concerns -Likely demand ischemia, now downtrending History of atrial fibrillation with SVR s/p pacemaker -S/p single chamber pacemaker placed on 10/31 -Continue home Eliquis Recent hospital delirium -Pt was agitated requiring IM antipsychotics last admission, discharged on nightly Seroquel -Continue Seroquel 25 mg HS, melatonin -Frequent reorientation DM2 -A1C 6.3% in 10/2022 -Diet-controlled during last admission -SSI Hyperlipidemia -Pt not on any statin home medication -Initiated atorvastatin 80 mg in aftermath of second TIA in 1 week, continue Inflammatory arthropathy -Continue prednisone 5 mg daily BPH -Continue home dutasteride FENGI: Carb Consistent Code status: DNR/DNI DVT ppx: Home Eliquis Isolation: None Dispo: PT/OT ordered, pending placement (family is hopeful for [facility]). Patient given flu and pneumonia vaccines today. Consults: Neurology (2) Elevated troponin: (3) TIA (transient ischemic attack): Admission and Anticipated Discharge Date Admission Date: November 04, 2022 Supervising Physician Co-Signing Physician Notes I personally examined the patient and verified all kemp points of history and exam, discussed case, and agree with decision making with Dr Alcantara Again sitting in the chair. No complaints. Awaiting SNF. Again pleasantly confused today. Vitals noted, in general sitting comfortably no distress. HEENT normocephalic atraumatic mucous membranes moist. Breathing unlabored no accessory muscle use good effort. Skin shows no rashes no pallor or icterus. TIA versus transient symptoms related to hypoxia improved. Still awaiting SNF, stable when approved/available. Otherwise as above. No changes today. Subjective Patient seen at bedside this morning. No acute events reported overnight. Patient is going to the bathroom and bed at the time of my arrival, so limited HPI and physical exam today. No changes overall. Patient overall doing well. No new complaints. Awaiting placement. Review of Systems Review of Systems: Unobtainable due to cognitive status Physical Exam Constitutional: WD/WN, vitals as above Eyes: + anicteric sclerae Respiratory: normal respiratory effort, lungs clear to auscultation normal respiratory effort Cardiovascular: Rate/Rhythm: regular rate and regular rhythm Heart Sounds: + murmur Gastrointestinal (Abdomen): normal bowel sounds, soft, nontender, no hepatosplenomegaly Inspection/Auscultation: abdomen normal to inspection Musculoskeletal: Head/Neck/Chest: normocephalic and head atraumatic Neurologic: moves all extremities Psychiatric: Orientation: alert Results & Data Results & Data ([facility]) Vital Signs (Past 12 Hours) Vital Signs Temp Pulse Resp BP Pulse Ox O2 Del Method O2 Flow Rate 11/10/22 14:27 36.3 C L 61 18 94/61 L 98 Room Air 11/10/22 14:08 36.6 C 75 18 95/59 L 92 Nasal Cannula 2 11/10/22 13:10 96 11/10/22 07:43 36.4 C L 61 18 122/77 98 Room Air
--- NOTE | 2022-11-10 18:56 | Billing Data ---
Date of Service November 10, 2022 Coding Level of Care Code 75364 SUB INP/OBS CARE
[2022-11-10] MEDS: QUEtiapine FUMARATE 25 MG TABLET PO SCH (20:05)
[2022-11-10] MEDS: MELATONIN 3 MG TAB PO SCH (20:05)
[2022-11-10] MEDS ORDERED: LORazepam 2 MG/1 ML VIAL IV STA (22:35)
[2022-11-11 06:59] LABS: BUN Creatinine Ratio 32.9 (10-20); Calcium 7.9 mg/dl (8.5-10.1); Creatinine Clr Calc Pharmacy 59.4 ml/min; Est GFR (African American) 92.1 ml/min; Est GFR (Non-African American) 79.5 ml/min; Potassium 3.7 mmol/L (3.5-5.1)
--- NOTE | 2022-11-11 07:03 | Hospitalist Progress Note ---
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 Transient Dysarthria -- Recurrent Transient Ischemic Attack vs. ?Hypoxia -- mostly improved -On 1200 on day of admission (11/03/22), family reported acute dysarthria with associated mental status changes and hand tremors -- found with an SaO2 of 78% on admission -Workup as follows: - Neck CTA demonstrating R-ICA FMD appearance. Head CT with intraventricular lesion in 4th ventricle at 9mm size, likely benign - Echocardiogram from last admission unremarkable with EF 55-60% - No significant lyte or hematologic abnormalities - MRI is desired, but must wait >6wk from time of pacemaker placement. Consider as outpatient. - Previous TIA last admission suspected to be due to atrial fibrillation - SaO2 76% on arrival - CXR and physical exam without acute findings. -PT/OT evals completed and are ongoing. Placement pending. Case management following. -Continue aspirin, started atorvastatin 80 mg -Neurology consulted: recurrent TIA or hypoxia. Continue ongoing medical management -Fall, seizure, aspiration precautions, neuro-checks, SS evaluation Elevated troponin, consider resolved -Troponin 132 on admission -No active chest pain and EKG without ischemic injury concerns -Likely demand ischemia, now downtrending History of atrial fibrillation with SVR s/p pacemaker -S/p single chamber pacemaker placed on 10/31 -Continue home Eliquis Recent hospital delirium -Pt was agitated requiring IM antipsychotics last admission, discharged on nightly Seroquel -Continue Seroquel 25 mg HS, melatonin -Frequent reorientation DM2 -A1C 6.3% in 10/2022 -Diet-controlled during last admission -SSI Hyperlipidemia -Pt not on any statin home medication -Initiated atorvastatin 80 mg in aftermath of second TIA in 1 week, continue Inflammatory arthropathy -Continue prednisone 5 mg daily BPH -Continue home dutasteride FENGI: Carb Consistent Code status: DNR/DNI DVT ppx: Home Eliquis Dispo: PT/OT ordered, pending placement (family is hopeful for [facility]) (2) Elevated troponin: (3) TIA (transient ischemic attack): Admission and Anticipated Discharge Date Admission Date: November 04, 2022 Supervising Physician Co-Signing Physician Notes I personally examined the patient and verified all kemp points of history and exam, discussed case, and agree with decision making with Dr Lucero no new complaints, still waiting on placement Vitals noted, in general sitting comfortably no distress. HEENT normocephalic atraumatic mucous membranes moist. Breathing unlabored no accessory muscle use good effort. Skin shows no rashes no pallor or icterus. TIA versus transient symptoms related to hypoxia improved. Still awaiting SNF, stable when approved/available. Otherwise as above. hopefully bed soon. Subjective No acute events. Awaiting placement. Review of Systems Review of Systems: All systems reviewed & are unremarkable except as noted in HPI & below Physical Exam Physical Exam: General: A&Ox3. NAD. Cooperative. HEENT: Atraumatic, normocephalic. Pulm: CTAB A&P. -wheezes, -rales, -rhonchi. Symmetrical chest rise. No increase work of breathing. No respiratory distress. Cardiac: RRR, -mrg. Radial pulses intact and symmetrical. Abdominal: soft, non-tender, non-distended, BS x 4 Skin: warm, dry, no rash Results & Data Results & Data ([facility]) Vital Signs (Past 12 Hours) Vital Signs Temp Pulse Resp BP BP Pulse Ox O2 Del Method 11/11/22 03:43 36.3 C L 61 16 148/86 H 96 Room Air 11/11/22 00:03 36.5 C 66 17 123/77 94 Room Air 11/10/22 20:31 36.3 C L 63 18 115/76 96 Room Air Resident Activity Tracking Resident Involvement: Resident Care Provided Care Provided: Adult Hospital Medicine
[2022-11-11] MEDS: INSULIN ASPART PER UNIT SC SCH ×4 (08:26→20:23)
[2022-11-11] MEDS: ATORVASTATIN 40 MG TAB PO SCH (08:27)
[2022-11-11] MEDS: predniSONE 5 MG TAB PO SCH (08:27)
[2022-11-11] MEDS: CEROVITE ADV FORMULA TAB PO SCH (08:27)
[2022-11-11] MEDS: CHOLECALCIFEROL 1,000 UNITS 25 MCG TAB PO SCH (08:27)
[2022-11-11] MEDS: ASPIRIN 81 MG ECTAB PO SCH (08:28)
[2022-11-11] MEDS: DUTASTERIDE 0.5 MG PO SCH (08:28)
[2022-11-11] MEDS: APIXABAN 5 MG TABLET PO SCH ×2 (08:28→20:15)
--- NOTE | 2022-11-11 18:09 | Billing Data ---
Date of Service November 11, 2022 Coding Level of Care Code 11807 SUB INP/OBS CARE
[2022-11-11] MEDS: QUEtiapine FUMARATE 25 MG TABLET PO SCH (20:15)
[2022-11-11] MEDS: MELATONIN 3 MG TAB PO SCH (20:16)
--- NOTE | 2022-11-12 08:45 | Hospitalist Progress Note ---
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 Transient Dysarthria -- Recurrent Transient Ischemic Attack vs. ?Hypoxia -- mostly improved -On 1200 on day of admission (11/03/22), family reported acute dysarthria with associated mental status changes and hand tremors -- found with an SaO2 of 78% on admission -Workup as follows: - Neck CTA demonstrating R-ICA FMD appearance. Head CT with intraventricular lesion in 4th ventricle at 9mm size, likely benign - Echocardiogram from last admission unremarkable with EF 55-60% - No significant lyte or hematologic abnormalities - MRI is desired, but must wait >6wk from time of pacemaker placement. Consider as outpatient. - Previous TIA last admission suspected to be due to atrial fibrillation - SaO2 76% on arrival - CXR and physical exam without acute findings. -PT/OT evals completed and are ongoing. Placement pending. Case management following. -Continue aspirin, started atorvastatin 80 mg -Neurology consulted: recurrent TIA or hypoxia. Continue ongoing medical management -Fall, seizure, aspiration precautions, neuro-checks, SS evaluation Elevated troponin, consider resolved -Troponin 132 on admission -No active chest pain and EKG without ischemic injury concerns -Likely demand ischemia, now downtrending History of atrial fibrillation with SVR s/p pacemaker -S/p single chamber pacemaker placed on 10/31 -Continue home Eliquis Recent hospital delirium -Pt was agitated requiring IM antipsychotics last admission, discharged on nightly Seroquel -Continue Seroquel 25 mg HS, melatonin -Frequent reorientation DM2 -A1C 6.3% in 10/2022 -Diet-controlled during last admission -SSI Hyperlipidemia -Pt not on any statin home medication -Initiated atorvastatin 80 mg in aftermath of second TIA in 1 week, continue Inflammatory arthropathy -Continue prednisone 5 mg daily BPH -Continue home dutasteride FENGI: Carb Consistent Code status: DNR/DNI DVT ppx: Home Eliquis Dispo: PT/OT ordered, pending placement (family is hopeful for [facility]) -- unlikely to get bed over the weekend (2) Elevated troponin: (3) TIA (transient ischemic attack): Admission and Anticipated Discharge Date Admission Date: November 04, 2022 Supervising Physician Co-Signing Physician Notes I personally examined the patient and verified all kemp points of history and exam, discussed case, and agree with decision making with Dr Lucero no new complaints or issues, still waiting on placement Vitals noted, in general sitting comfortably no distress. HEENT normocephalic atraumatic mucous membranes moist. Breathing unlabored no accessory muscle use good effort. Skin shows no rashes no pallor or icterus. TIA versus transient symptoms related to hypoxia improved. Still awaiting SNF, stable when approved/available. Otherwise as above. hopefully bed monday Subjective No acute events. Awaiting placement. Review of Systems Review of Systems: as per HPI Physical Exam Physical Exam: General: A&Ox3. NAD. Cooperative. HEENT: Atraumatic, normocephalic. Pulm: CTAB A&P. -wheezes, -rales, -rhonchi. Symmetrical chest rise. No increase work of breathing. No respiratory distress. Cardiac: RRR, -mrg. Radial pulses intact and symmetrical. Abdominal: soft, non-tender, non-distended, BS x 4 Skin: warm, dry, no rash Results & Data Results & Data ([facility]) Vital Signs (Past 12 Hours) Vital Signs Temp Pulse Resp BP Pulse Ox O2 Del Method 11/12/22 07:30 36.4 C L 61 16 108/68 98 Room Air 11/11/22 21:51 36.3 C L 61 17 112/71 96 Room Air Resident Activity Tracking Resident Involvement: Resident Care Provided Care Provided: Adult Hospital Medicine
[2022-11-12] MEDS: INSULIN ASPART PER UNIT SC SCH ×4 (09:06→20:45)
[2022-11-12] MEDS: ASPIRIN 81 MG ECTAB PO SCH (09:07)
[2022-11-12] MEDS: CHOLECALCIFEROL 1,000 UNITS 25 MCG TAB PO SCH (09:07)
[2022-11-12] MEDS: ATORVASTATIN 40 MG TAB PO SCH (09:07)
[2022-11-12] MEDS: predniSONE 5 MG TAB PO SCH (09:07)
[2022-11-12] MEDS: CEROVITE ADV FORMULA TAB PO SCH (09:07)
[2022-11-12] MEDS: APIXABAN 5 MG TABLET PO SCH ×2 (09:07→20:44)
[2022-11-12] MEDS: DUTASTERIDE 0.5 MG PO SCH (09:08)
--- NOTE | 2022-11-12 17:26 | Billing Data ---
Date of Service November 12, 2022 Coding Level of Care Code 16019 SUB INP/OBS CARE
[2022-11-12] MEDS: MELATONIN 3 MG TAB PO SCH (20:44)
[2022-11-12] MEDS: QUEtiapine FUMARATE 25 MG TABLET PO SCH (20:44)
--- NOTE | 2022-11-13 07:14 | Hospitalist Progress Note ---
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 Transient Dysarthria -- Recurrent Transient Ischemic Attack vs. ?Hypoxia -- mostly improved -On 1200 on day of admission (11/03/22), family reported acute dysarthria with associated mental status changes and hand tremors -- found with an SaO2 of 78% on admission -Workup as follows: - Neck CTA demonstrating R-ICA FMD appearance. Head CT with intraventricular lesion in 4th ventricle at 9mm size, likely benign - Echocardiogram from last admission unremarkable with EF 55-60% - No significant lyte or hematologic abnormalities - MRI is desired, but must wait >6wk from time of pacemaker placement. Consider as outpatient. - Previous TIA last admission suspected to be due to atrial fibrillation - SaO2 76% on arrival - CXR and physical exam without acute findings. -PT/OT evals completed and are ongoing. Placement pending. Case management following. -Continue aspirin, started atorvastatin 80 mg -Neurology consulted: recurrent TIA or hypoxia. Continue ongoing medical management -Fall, seizure, aspiration precautions, neuro-checks, SS evaluation Elevated troponin, consider resolved -Troponin 132 on admission -No active chest pain and EKG without ischemic injury concerns -Likely demand ischemia, now downtrending History of atrial fibrillation with SVR s/p pacemaker -S/p single chamber pacemaker placed on 10/31 -Continue home Eliquis Recent hospital delirium -Pt was agitated requiring IM antipsychotics last admission, discharged on nightly Seroquel -Continue Seroquel 25 mg HS, melatonin -Frequent reorientation DM2 -A1C 6.3% in 10/2022 -Diet-controlled during last admission -SSI Hyperlipidemia -Pt not on any statin home medication -Initiated atorvastatin 80 mg in aftermath of second TIA in 1 week, continue Inflammatory arthropathy -Continue prednisone 5 mg daily BPH -Continue home dutasteride FENGI: Carb Consistent Code status: DNR/DNI DVT ppx: Home Eliquis Dispo: PT/OT ordered, pending placement (family is hopeful for [facility]) -- unlikely to get bed over the weekend (2) Elevated troponin: (3) TIA (transient ischemic attack): Admission and Anticipated Discharge Date Admission Date: November 04, 2022 Supervising Physician Co-Signing Physician Notes I personally examined the patient and verified all kemp points of history and exam, discussed case, and agree with decision making with Dr Lucero no new complaints or issues, again waiting on placement Vitals noted, in general sitting comfortably no distress. HEENT normocephalic atraumatic mucous membranes moist. Breathing unlabored no accessory muscle use good effort. Skin shows no rashes no pallor or icterus. TIA versus transient symptoms related to hypoxia improved. Still awaiting SNF, stable for transfer when approved/available. Otherwise as above. hopefully bed monday Subjective No acute events. Awaiting placement. Review of Systems Review of Systems: All systems reviewed & are unremarkable except as noted in HPI & below Physical Exam Physical Exam: General: A&Ox3. NAD. Cooperative. HEENT: Atraumatic, normocephalic. Pulm: CTAB A&P. -wheezes, -rales, -rhonchi. Symmetrical chest rise. No increase work of breathing. No respiratory distress. Cardiac: RRR, -mrg. Radial pulses intact and symmetrical. Abdominal: soft, non-tender, non-distended, BS x 4 Skin: warm, dry, no rash Results & Data Results & Data ([facility]) Vital Signs (Past 12 Hours) Vital Signs Temp Pulse Resp BP Pulse Ox O2 Del Method 11/13/22 07:00 36.3 C L 64 18 101/61 93 Room Air 11/12/22 22:12 36.7 C 61 18 99/65 L 95 Room Air 11/12/22 20:15 Room Air Resident Activity Tracking Resident Involvement: Resident Care Provided Care Provided: Adult Hospital Medicine
[2022-11-13] MEDS: ATORVASTATIN 40 MG TAB PO SCH (08:47)
[2022-11-13] MEDS: DUTASTERIDE 0.5 MG PO SCH (08:47)
[2022-11-13] MEDS: CEROVITE ADV FORMULA TAB PO SCH (08:47)
[2022-11-13] MEDS: predniSONE 5 MG TAB PO SCH (08:47)
[2022-11-13] MEDS: CHOLECALCIFEROL 1,000 UNITS 25 MCG TAB PO SCH (08:47)
[2022-11-13] MEDS: ASPIRIN 81 MG ECTAB PO SCH (08:47)
[2022-11-13] MEDS: APIXABAN 5 MG TABLET PO SCH ×2 (08:47→20:20)
[2022-11-13] MEDS: INSULIN ASPART PER UNIT SC SCH ×4 (09:03→21:37)
--- NOTE | 2022-11-13 14:44 | Billing Data ---
Date of Service November 13, 2022 Coding Level of Care Code 58088 SUB INP/OBS CARE
[2022-11-13] MEDS: QUEtiapine FUMARATE 25 MG TABLET PO SCH (20:20)
[2022-11-13] MEDS: MELATONIN 3 MG TAB PO SCH (20:20)
[2022-11-14] MEDS: ATORVASTATIN 40 MG TAB PO SCH (08:41)
[2022-11-14] MEDS: CEROVITE ADV FORMULA TAB PO SCH (08:42)
[2022-11-14] MEDS: APIXABAN 5 MG TABLET PO SCH ×2 (08:42→21:00)
[2022-11-14] MEDS: DUTASTERIDE 0.5 MG PO SCH (08:42)
[2022-11-14] MEDS: CHOLECALCIFEROL 1,000 UNITS 25 MCG TAB PO SCH (08:42)
[2022-11-14] MEDS: predniSONE 5 MG TAB PO SCH (08:42)
[2022-11-14] MEDS: ASPIRIN 81 MG ECTAB PO SCH (08:42)
[2022-11-14] MEDS: INSULIN ASPART PER UNIT SC SCH ×4 (09:26→21:00)
[2022-11-14] MEDS: ACETAMINOPHEN 325 MG TAB PO PRN (11:38)
--- NOTE | 2022-11-14 18:05 | Hospitalist Progress Note ---
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 Transient Dysarthria -- Recurrent Transient Ischemic Attack sec to hypoxia vs. ?Hypoxia -- mostly improved -On 1200 on day of admission (11/03/22), family reported acute dysarthria with associated mental status changes and hand tremors -- found with an SaO2 of 78% on admission -Workup as follows: - Neck CTA demonstrating R-ICA FMD appearance. Head CT with intraventricular lesion in 4th ventricle at 9mm size, likely benign - Echocardiogram from last admission unremarkable with EF 55-60% - No significant lyte or hematologic abnormalities - MRI is desired, but must wait >6wk from time of pacemaker placement. Consider as outpatient. - Previous TIA last admission suspected to be due to atrial fibrillation - SaO2 76% on arrival - CXR and physical exam without acute findings. Hypoxia has since been resolved and not been noted during hospitalization -PT/OT evals completed and are ongoing. Placement pending. Case management following. Will hear update tomorrow from [facility]. -Continue aspirin. Started atorvastatin 80 mg on admission, continue -Neurology consulted: recurrent TIA or hypoxia. Continue ongoing medical management -Fall, seizure, aspiration precautions History of atrial fibrillation with SVR s/p pacemaker -S/p single chamber pacemaker placed on 10/31 -Continue home Eliquis Recent hospital delirium -Pt was agitated requiring IM antipsychotics last admission, discharged on nightly Seroquel -Continue Seroquel 25 mg HS, melatonin -Frequent reorientation DM2 -A1C 6.3% in 10/2022 -Diet-controlled during last admission -SSI Hyperlipidemia -Pt not on any statin home medication -Initiated atorvastatin 80 mg in aftermath of second TIA in 1 week, continue Inflammatory arthropathy -Continue prednisone 5 mg daily BPH -Continue home dutasteride Elevated troponin, consider resolved -Troponin 132 on admission -No active chest pain and EKG without ischemic injury concerns FENGI: Carb Consistent Code status: DNR/DNI DVT ppx: Home Eliquis Dispo: PT/OT ordered, pending placement (2) Elevated troponin: (3) TIA (transient ischemic attack): Admission and Anticipated Discharge Date Admission Date: November 04, 2022 Supervising Physician Co-Signing Physician Notes Resident Physician Supervision Note: I independently interviewed and examined the patient and verified the kemp history and physical, reviewed labs and image studies and agree with resident findings and care plan. Subjective Patient seen bedside this morning. No acute events reported overnight. Patient doing well, awaiting placement. No new complaints at this time Review of Systems Review of Systems: as per HPI Physical Exam Constitutional: WD/WN, vitals as above Eyes: + anicteric sclerae Neck: trachea midline, no thyromegaly Respiratory: normal respiratory effort, lungs clear to auscultation normal respiratory effort Cardiovascular: Rate/Rhythm: regular rate and regular rhythm Heart Sounds: + murmur Gastrointestinal (Abdomen): normal bowel sounds, soft, nontender, no hepatosplenomegaly Inspection/Auscultation: abdomen normal to inspection Musculoskeletal: no cyanosis or clubbing, extremities motor strength 5/5 Head/Neck/Chest: normocephalic and head atraumatic Skin: no rashes, warm and dry Neurologic: moves all extremities Psychiatric: Orientation: alert Lymphatic: no cervical lymphadenopathy Results & Data Results & Data ([facility]) Vital Signs (Past 12 Hours) Vital Signs Temp Pulse Pulse Resp BP BP Pulse Ox 11/14/22 14:32 36.3 C L 61 18 98/60 L 98 11/14/22 11:43 36.5 C 62 19 130/76 96 11/14/22 09:39 18 11/14/22 08:51 36.6 C 77 21 137/52 L 95 11/14/22 07:45 36.4 C L 62 22 158/68 H 95 O2 Del Method 11/14/22 14:32 Room Air 11/14/22 11:43 Room Air 11/14/22 09:39 11/14/22 08:51 Room Air 11/14/22 07:45 Room Air
[2022-11-14] MEDS: MELATONIN 3 MG TAB PO SCH (21:00)
[2022-11-14] MEDS: QUEtiapine FUMARATE 25 MG TABLET PO SCH (21:00)
[2022-11-15] MEDS: predniSONE 5 MG TAB PO SCH (07:21)
[2022-11-15] MEDS: CHOLECALCIFEROL 1,000 UNITS 25 MCG TAB PO SCH (07:21)
[2022-11-15] MEDS: ASPIRIN 81 MG ECTAB PO SCH (07:21)
[2022-11-15] MEDS: APIXABAN 5 MG TABLET PO SCH ×2 (07:21→21:49)
[2022-11-15] MEDS: CEROVITE ADV FORMULA TAB PO SCH (07:21)
[2022-11-15] MEDS: ATORVASTATIN 40 MG TAB PO SCH (07:21)
[2022-11-15 08:35] LABS: BUN Creatinine Ratio 24.7 (10-20); Calcium 9.3 mg/dl (8.5-10.1); Creatinine Clr Calc Pharmacy 52.1 ml/min; Est GFR (African American) 82.2 ml/min; Est GFR (Non-African American) 70.9 ml/min; Potassium 4.1 mmol/L (3.5-5.1)
[2022-11-15] MEDS ORDERED: LACTATED RINGER'S 500 ML IV ONE (09:08)
[2022-11-15] MEDS: INSULIN ASPART PER UNIT SC SCH ×4 (09:18→21:54)
[2022-11-15] MEDS: DUTASTERIDE 0.5 MG PO SCH (13:40)
--- NOTE | 2022-11-15 18:28 | Hospitalist Progress Note ---
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 Transient Dysarthria -- Recurrent Transient Ischemic Attack sec to hypoxia vs. ?Hypoxia -- mostly improved -On 1200 on day of admission (11/03/22), family reported acute dysarthria with associated mental status changes and hand tremors -- found with an SaO2 of 78% on admission -Workup as follows: - Neck CTA demonstrating R-ICA FMD appearance. Head CT with intraventricular lesion in 4th ventricle at 9mm size, likely benign - Echocardiogram from last admission unremarkable with EF 55-60% - No significant lyte or hematologic abnormalities - MRI is desired, but must wait >6wk from time of pacemaker placement. Consider as outpatient. - Previous TIA last admission suspected to be due to atrial fibrillation - SaO2 76% on arrival - CXR and physical exam without acute findings. Hypoxia has since been resolved and not been noted during hospitalization -PT/OT evals completed and are ongoing. Placement pending. Unfortunately Leatha Musa did not return call today, case management continuing to follow -Continue aspirin. Started atorvastatin 80 mg on admission, continue -Neurology consulted: recurrent TIA or hypoxia. Continue ongoing medical management -Fall, seizure, aspiration precautions History of atrial fibrillation with SVR s/p pacemaker -S/p single chamber pacemaker placed on 10/31 -Continue home Eliquis Recent hospital delirium -Pt was agitated requiring IM antipsychotics last admission, discharged on nightly Seroquel -Continue Seroquel 25 mg HS, melatonin -Frequent reorientation DM2 -A1C 6.3% in 10/2022 -Diet-controlled during last admission -SSI Hyperlipidemia -Pt not on any statin home medication -Initiated atorvastatin 80 mg in aftermath of second TIA in 1 week, continue Inflammatory arthropathy -Continue prednisone 5 mg daily BPH -Continue home dutasteride Elevated troponin, consider resolved -Troponin 132 on admission -No active chest pain and EKG without ischemic injury concerns FENGI: Carb Consistent Code status: DNR/DNI DVT ppx: Home Eliquis Dispo: PT/OT ordered, pending placement (2) Elevated troponin: (3) TIA (transient ischemic attack): Admission and Anticipated Discharge Date Admission Date: November 04, 2022 Supervising Physician Co-Signing Physician Notes Resident Physician Supervision Note: I independently interviewed and examined the patient and verified the kemp history and physical, reviewed labs and image studies and agree with resident findings and care plan. Subjective Patient seen at bedside this morning. No acute events reported overnight. No new complaints today. Patient pleasantly demented and conversive. Awaiting placement Review of Systems Review of Systems: as per HPI Physical Exam Constitutional: WD/WN, vitals as above Eyes: + anicteric sclerae Respiratory: normal respiratory effort Cardiovascular: Rate/Rhythm: regular rate and regular rhythm Heart Sounds: + murmur Gastrointestinal (Abdomen): Inspection/Auscultation: abdomen normal to inspection Musculoskeletal: Head/Neck/Chest: normocephalic and head atraumatic Skin: no rashes, warm and dry Neurologic: moves all extremities Psychiatric: Orientation: alert Results & Data Results & Data ([facility]) Vital Signs (Past 12 Hours) Vital Signs Temp Pulse Resp BP BP Pulse Ox O2 Del Method 11/15/22 17:49 36.6 C 64 18 112/53 L 95 Room Air 11/15/22 15:51 36.6 C 44 L 17 99/63 L 96 Room Air 11/15/22 10:08 62 94/55 L 11/15/22 09:55 62 18 95/57 L 97 Room Air 11/15/22 08:10 36.6 C 64 17 91 Room Air
[2022-11-15] MEDS: ACETAMINOPHEN 325 MG TAB PO PRN (21:49)
[2022-11-15] MEDS: QUEtiapine FUMARATE 25 MG TABLET PO SCH (21:50)
[2022-11-15] MEDS: MELATONIN 3 MG TAB PO SCH (21:52)
[2022-11-16] MEDS: CEROVITE ADV FORMULA TAB PO SCH (08:50)
[2022-11-16] MEDS: ASPIRIN 81 MG ECTAB PO SCH (08:50)
[2022-11-16] MEDS: CHOLECALCIFEROL 1,000 UNITS 25 MCG TAB PO SCH (08:50)
[2022-11-16] MEDS: ATORVASTATIN 40 MG TAB PO SCH (08:50)
[2022-11-16] MEDS: APIXABAN 5 MG TABLET PO SCH ×2 (08:50→21:12)
[2022-11-16] MEDS: predniSONE 5 MG TAB PO SCH (08:50)
[2022-11-16] MEDS: DUTASTERIDE 0.5 MG PO SCH (08:51)
[2022-11-16] MEDS: INSULIN ASPART PER UNIT SC SCH ×4 (09:33→21:19)
[2022-11-16] MEDS ORDERED: LACTATED RINGER'S 500 ML IV ONE (10:14)
--- NOTE | 2022-11-16 17:33 | Hospitalist Progress Note ---
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 Transient Dysarthria -- Recurrent Transient Ischemic Attack sec to hypoxia vs. ?Hypoxia -- mostly improved -On 1200 on day of admission (11/03/22), family reported acute dysarthria with associated mental status changes and hand tremors -- found with an SaO2 of 78% on admission -Workup as follows: - Neck CTA demonstrating R-ICA FMD appearance. Head CT with intraventricular lesion in 4th ventricle at 9mm size, likely benign - Echocardiogram from last admission unremarkable with EF 55-60% - No significant lyte or hematologic abnormalities - MRI is desired, but must wait >6wk from time of pacemaker placement. Consider as outpatient. - Previous TIA last admission suspected to be due to atrial fibrillation - SaO2 76% on arrival - CXR and physical exam without acute findings. Hypoxia has since been resolved and not been noted during hospitalization -PT/OT evals completed and are ongoing. Placement pending. Leatha Musa confirmed they did not have a bed available this week. Larisa Agn feels they may have a bed early next week, awaiting confirmation. -Continue aspirin. Started atorvastatin 80 mg on admission, continue -Neurology consulted: recurrent TIA or hypoxia. Continue ongoing medical management -Fall, seizure, aspiration precautions History of atrial fibrillation with SVR s/p pacemaker -S/p single chamber pacemaker placed on 10/31 -Continue home Eliquis Recent hospital delirium -Pt was agitated requiring IM antipsychotics last admission, discharged on nightly Seroquel -Continue Seroquel 25 mg HS, melatonin -Frequent reorientation DM2 -A1C 6.3% in 10/2022 -Diet-controlled during last admission -SSI Hyperlipidemia -Pt not on any statin home medication -Initiated atorvastatin 80 mg in aftermath of second TIA in 1 week, continue Inflammatory arthropathy -Continue prednisone 5 mg daily BPH -Continue home dutasteride Elevated troponin, consider resolved -Troponin 132 on admission -No active chest pain and EKG without ischemic injury concerns FENGI: Carb Consistent Code status: DNR/DNI DVT ppx: Home Eliquis Dispo: PT/OT ordered, pending placement (2) Elevated troponin: (3) TIA (transient ischemic attack): Admission and Anticipated Discharge Date Admission Date: November 04, 2022 Supervising Physician Co-Signing Physician Notes Resident Physician Supervision Note: I independently interviewed and examined the patient and verified the kemp history and physical, reviewed labs and image studies and agree with resident findings and care plan. Subjective Patient seen at bedside this morning. No acute events reported overnight. This morning he was feeling a little bit dizzy and his blood pressure was found to be low with ambulation but normal when lying in bed. This seemed to improve after being given a bolus of fluid. Otherwise no new complaints today. Eating and drinking without difficulty. Review of Systems Review of Systems: as per HPI Physical Exam Constitutional: WD/WN, vitals as above Eyes: + anicteric sclerae Neck: trachea midline, no thyromegaly Respiratory: normal respiratory effort Cardiovascular: Rate/Rhythm: regular rate and regular rhythm Heart Sounds: + murmur Gastrointestinal (Abdomen): Inspection/Auscultation: abdomen normal to inspection Musculoskeletal: Head/Neck/Chest: normocephalic and head atraumatic Skin: no rashes, warm and dry Neurologic: moves all extremities Psychiatric: Orientation: alert Results & Data Results & Data ([facility]) Vital Signs (Past 12 Hours) Vital Signs Temp Pulse Resp BP BP Pulse Ox O2 Del Method 11/16/22 16:38 36.7 C 60 17 112/66 95 Room Air 11/16/22 15:30 Room Air 11/16/22 10:55 Room Air 11/16/22 07:51 36.6 C 61 17 118/73 97 Room Air
[2022-11-16] MEDS: QUEtiapine FUMARATE 25 MG TABLET PO SCH (21:12)
[2022-11-16] MEDS: MELATONIN 3 MG TAB PO SCH (21:19)
[2022-11-16] MEDS: ACETAMINOPHEN 325 MG TAB PO PRN (23:14)
[2022-11-17 08:13] LABS: BUN Creatinine Ratio 21.6 (10-20); Calcium 8.1 mg/dl (8.5-10.1); Creatinine Clr Calc Pharmacy 57.4 ml/min; Est GFR (African American) 90.8 ml/min; Est GFR (Non-African American) 78.3 ml/min; Potassium 4.1 mmol/L (3.5-5.1)
[2022-11-17] MEDS: ASPIRIN 81 MG ECTAB PO SCH (08:13)
[2022-11-17] MEDS: CHOLECALCIFEROL 1,000 UNITS 25 MCG TAB PO SCH (08:13)
[2022-11-17] MEDS: APIXABAN 5 MG TABLET PO SCH ×2 (08:13→21:18)
[2022-11-17] MEDS: DUTASTERIDE 0.5 MG PO SCH (08:14)
[2022-11-17] MEDS: CEROVITE ADV FORMULA TAB PO SCH (08:14)
[2022-11-17] MEDS: predniSONE 5 MG TAB PO SCH (08:14)
[2022-11-17] MEDS: ATORVASTATIN 40 MG TAB PO SCH (08:14)
[2022-11-17] MEDS: INSULIN ASPART PER UNIT SC SCH ×4 (09:00→21:10)
--- NOTE | 2022-11-17 18:09 | Hospitalist Progress Note ---
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 Transient Dysarthria -- Recurrent Transient Ischemic Attack sec to hypoxia vs. ?Hypoxia -- mostly improved -On 1200 on day of admission (11/03/22), family reported acute dysarthria with associated mental status changes and hand tremors -- found with an SaO2 of 78% on admission -Workup as follows: - Neck CTA demonstrating R-ICA FMD appearance. Head CT with intraventricular lesion in 4th ventricle at 9mm size, likely benign - Echocardiogram from last admission unremarkable with EF 55-60% - No significant lyte or hematologic abnormalities - MRI is desired, but must wait >6wk from time of pacemaker placement. Consider as outpatient. - Previous TIA last admission suspected to be due to atrial fibrillation - SaO2 76% on arrival - CXR and physical exam without acute findings. Hypoxia has since been resolved and not been noted during hospitalization -PT/OT evals completed and are ongoing. Placement pending. Larisa Ang can accept the patient tomorrow assuming prior authorization goes through. -Continue aspirin. Started atorvastatin 80 mg on admission, continue -Neurology consulted: recurrent TIA or hypoxia. Continue ongoing medical management -Fall, seizure, aspiration precautions History of atrial fibrillation with SVR s/p pacemaker -S/p single chamber pacemaker placed on 10/31 -Continue home Eliquis Recent hospital delirium -Pt was agitated requiring IM antipsychotics last admission, discharged on nightly Seroquel -Continue Seroquel 25 mg HS, melatonin -Frequent reorientation DM2 -A1C 6.3% in 10/2022 -Diet-controlled during last admission -SSI Hyperlipidemia -Pt not on any statin home medication -Initiated atorvastatin 80 mg in aftermath of second TIA in 1 week, continue Inflammatory arthropathy -Continue prednisone 5 mg daily BPH -Continue home dutasteride Elevated troponin, consider resolved -Troponin 132 on admission -No active chest pain and EKG without ischemic injury concerns FENGI: Carb Consistent Code status: DNR/DNI DVT ppx: Home Eliquis Dispo: PT/OT ordered, pending placement (2) Elevated troponin: (3) TIA (transient ischemic attack): Admission and Anticipated Discharge Date Admission Date: November 04, 2022 Supervising Physician Co-Signing Physician Notes Resident Physician Supervision Note: I independently interviewed and examined the patient and verified the kemp history and physical, reviewed labs and image studies and agree with resident findings and care plan. Subjective Patient seen at bedside this morning. No acute events reported overnight. Patient doing well overall and has no complaints. Awaiting placement. Review of Systems Review of Systems: as per HPI Physical Exam Constitutional: WD/WN, vitals as above Eyes: + anicteric sclerae Neck: trachea midline, no thyromegaly Respiratory: normal respiratory effort Cardiovascular: Rate/Rhythm: regular rate and regular rhythm Heart Sounds: + murmur Gastrointestinal (Abdomen): Inspection/Auscultation: abdomen normal to inspection Musculoskeletal: Head/Neck/Chest: normocephalic and head atraumatic Skin: no rashes, warm and dry Neurologic: moves all extremities Psychiatric: Orientation: alert Results & Data Results & Data ([facility]) Vital Signs (Past 12 Hours) Vital Signs Temp Pulse Resp BP Pulse Ox O2 Del Method 11/17/22 15:23 36.7 C 78 17 87/61 L 95 Room Air 11/17/22 08:00 Room Air 11/17/22 07:33 36.6 C 60 16 107/64 95 Room Air
[2022-11-17] MEDS: QUEtiapine FUMARATE 25 MG TABLET PO SCH (21:18)
[2022-11-17] MEDS: ACETAMINOPHEN 325 MG TAB PO PRN (21:20)
[2022-11-17] MEDS: MELATONIN 3 MG TAB PO SCH (21:20)
--- NOTE | 2022-11-18 07:21 | Discharge Summary ---
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 Pt was admitted to [facility] from 10/28 to 11/02 for TIA with dysarthria. Imaging studies unremarkable at that time but MRI was poor quality study compromised by patient's mobility. He did experience junctional bradycardia/atrial fibrillation with SVR for which he underwent dual lead pacemaker placement on 10/31. Pt was also started on aspirin and Eliquis during this admission. He did experience significant delirium and agitation. Pt discharged home on 11/02. Yesterday evening, pt was brought home by and nephew. He had an uneventful night and this morning around 11:50 AM, was noticed to have sudden onset slurred/garbled speech. He also dropped his head to the side and was shaking his hands. At this time he was unresponsive to his and nephew. Around 11:53 AM pt opened his eyes and was able to recognize his surroundings. He did endorse an occipital headache wrapping around both sides of his forehead and fatigue. He was subsequently brought by EMS to the hospital. On arrival to the ED, pt noted to be 78% on O2 and briefly received 2-4L O2 via NC but he was quickly weaned to RA. Was hemodynamically stable and in paced rhythm on monitor with no abnormalities on pacer interrogation. CBC, BMP unremarkable. Troponin 132 without active chest pain. Head/neck CTA, head CT, CXR were negative. Case was discussed between ER physician and on-call neurologist who advised against any anti-seizure medication at this time. On my evaluation, the pt denies any active symptoms. His headache has resolved. He does feel tired but denies any focal weakness or numbness. His speech was still garbled and his family at bedside stated his dysarthria has not changed since onset. Admission Exam Per Admitting Provider General: NAD. Cooperative HEENT: Atraumatic, normocephalic. PERRLA, EOMI. Speech garbled Pulm: CTAB A&P. -wheezes, -rales, -rhonchi. Symmetrical chest rise. No increased work of breathing. No respiratory distress. Cardiac: +systolic murmur, paced rhythm, S1 and S2 present. Regular rate. Radial pulses intact and symmetrical. Abdominal: Nontender, nondistended, soft Neuro: 4/5 strength to hip flexion, ankle dorsi/plantarflexion, library clerical assistant strength bilaterally. Sensation to soft touch intact. Garbled speech but intelligible. Responsive to commands, AOx3.. No [id number] dysmetria. Principal Diagnosis Transient Ischemic Attack Discharge Exam General: A&Ox3. NAD. Cooperative. HEENT: Atraumatic, normocephalic. Pulm: CTAB A&P. -wheezes, -rales, -rhonchi. Symmetrical chest rise. No increase work of breathing. No respiratory distress. Cardiac: RRR, -mrg. Radial pulses intact and symmetrical. Abdominal: soft, non-tender, non-distended, BS x 4 Skin: warm, dry, no rash Discharge Data Allergies Allergy/AdvReac Type Severity Reaction Status Date / Time ibuprofen Allergy Unknown swelling Verified 10/28/22 15:36 Consultations 11/03/22 15:06 ED Decision to Admit Stat 11/03/22 18:55 Consult Neurology Routine Ordered Studies 11/03/22 13:12 CT angio head w con Stat CT angio neck with con Stat CT head/brain wo con Stat Hospital Course (1) Stroke-like symptoms: 87 yo M with PMH HLD, DM2, AF w/ SVR s/p pacemaker placement on Eliquis, previous TIA, and inflammatory arthropathy on chronic Prednisone, who was admitted to [facility] from 11/03 - 11/18 for a transient episode of dysarthria and altered mental status, which resolved within 24 hours. Transient Dysarthria -- Recurrent Transient Ischemic Attack vs Dysarthria 2/2 to Hypoxia At 1200 on day of admission (11/03/22), family reported acute dysarthria with associated mental status changes and hand tremors -- found with an SaO2 of 78% on admission. Oxygenation quickly normalized with several hours of supplementation oxygen in the ED, and dysarthria resolved in <24 hours. Work-up as follows: - Neck CTA demonstrating R-ICA FMD appearance. Head CT with intraventricular lesion in 4th ventricle at 9mm size, likely benign - Echocardiogram from last admission unremarkable with EF 55-60% - No significant electrolyte or hematologic abnormalities - MRI is desired, but must wait >6wk from time of pacemaker placement. Consider as outpatient. - PT/OT recommended SNF - patient accepted to [facility] and will be discharged there on 11/18 - Continue aspirin. Started atorvastatin 80 mg on admission, continue after discharge - Neurology consulted: recurrent TIA or hypoxia. Continue ongoing medical management History of atrial fibrillation with SVR s/p pacemaker S/p single chamber pacemaker placed on 10/31. Has remained in sinus rhythm during hospitalization. - Continue home Eliquis Recent hospital delirium Patient was agitated requiring IM antipsychotics during previous admission, and was discharged on nightly Seroquel at that time. - Continued on Seroquel 25 mg HS as well as melatonin during this hospitalization and did well - continue both on discharge - Frequent reorientation DM2 A1C 6.3% in 10/2022. Diet-controlled. No medications. - SSI while hospitalized Hyperlipidemia Was not previously on statin. - Initiated atorvastatin 80 mg as stated above - continue after discharge Inflammatory arthropathy Without exacerbation during hospitalization. - Continue prednisone 5 mg daily BPH - Continue home dutasteride FENGI: Carb Consistent Code status: DNR/DNI DVT ppx: Home Eliquis (2) Elevated troponin: (3) TIA (transient ischemic attack): Total Time Total Time Spent Total Time Spent (In Minutes): 30 minutes Discharge Plan Discharge Items Patient Disposition: Transfer Care Home Fac Reason For Visit: TIA Discharge Diagnosis: TIA Activity: Per Instructions section Non-emergency contact: Primary Care Provider and Neurologist Call non-emergency contact if: you have any medication questions and your symptoms worsen Follow-up/Referrals: Jim Qiu MD [Primary Care Provider] - (please schedule f/u in 2-4 weeks) Diet: Vegetarian (Lacto-Ovo) Addtl Attending Provider Instructions: Transient Dysarthria -- Recurrent Transient Ischemic Attack vs Dysarthria 2/2 to Hypoxia At 1200 on day of admission (11/03/22), family reported acute dysarthria with associated mental status changes and hand tremors -- found with an SaO2 of 78% on admission. Oxygenation quickly normalized with several hours of supplementation oxygen in the ED, and dysarthria resolved in <24 hours. Work-up as follows: - Neck CTA demonstrating R-ICA FMD appearance. Head CT with intraventricular lesion in 4th ventricle at 9mm size, likely benign - Echocardiogram from last admission unremarkable with EF 55-60% - No significant electrolyte or hematologic abnormalities - MRI is desired, but must wait >6wk from time of pacemaker placement. Consider as outpatient. - PT/OT recommended SNF - patient accepted to [facility] and will be discharged there on 11/18 - Continue aspirin. Started atorvastatin 80 mg on admission, continue after discharge - Neurology consulted: recurrent TIA or hypoxia. Continue ongoing medical management History of atrial fibrillation with SVR s/p pacemaker S/p single chamber pacemaker placed on 10/31. Has remained in sinus rhythm during hospitalization. - Continue home Eliquis Recent hospital delirium Patient was agitated requiring IM antipsychotics during previous admission, and was discharged on nightly Seroquel at that time. - Continued on Seroquel 25 mg HS as well as melatonin during this hospitalization and did well - continue both on discharge - Frequent reorientation DM2 A1C 6.3% in 10/2022. Diet-controlled. No medications. - SSI while hospitalized Hyperlipidemia Was not previously on statin. - Initiated atorvastatin 80 mg as stated above - continue after discharge Inflammatory arthropathy Without exacerbation during hospitalization. - Continue prednisone 5 mg daily BPH - Continue home dutasteride FENGI: Carb Consistent Code status: DNR/DNI DVT ppx: Home Eliquis Pending Studies at Discharge: No Stand-Alone Forms: My [facility] Skilled Items Patient informed of condition?: Yes DNR: Yes Discharge Level of Care: Skilled Communicable Disease: No Discharge Prognosis: Stable Lines: None Urinary Catheter: No Medications and DC Order Prescriptions: New atorvastatin 80 mg tablet 80 mg PO HS Qty: 30 1RF Continued mometasone 0.1 % cream 1 applic TOP DAILY Qty: 159 0RF dutasteride [Avodart] 0.5 mg capsule 0.5 mg PO DAILY Qty: 90 3RF Centrum Silver Ultra Men's 300-600-300 mcg tablet 1 tab PO DAILY Qty: 30 0RF prednisone 5 mg tablet 5 mg PO QAM risedronate 35 mg tablet 35 mg PO WK nystatin-triamcinolone 100,000-0.1 unit/g-% cream 1 applic TOP BID PRN (Reason: as needed) cholecalciferol (vitamin D3) [Vitamin D3] 25 mcg (1,000 unit) Tablet 25 mcg PO DAILY Eliquis 5 mg tablet 5 mg PO BID Qty: 60 5RF aspirin 81 mg Tablet,Delayed Release (Dr/Ec) 81 mg PO QAM Qty: 30 0RF quetiapine 25 mg Tablet 12.5 mg PO HS Qty: 30 0RF melatonin 3 mg Tablet 3 mg PO HS Qty: 30 0RF Discharge Orders: Discharge Order (Routine); Ordered 11/18/22 Ordered By: Ezequiel Pino/Other Patient Handouts: Anticoagulants, Anatomy of the Brain, ED TIA: Transient Ischemic Attack Admission Data Admit Date/Time: 11/04/22 13:13 Attending Provider: Yakelin Robbins Admit Provider: Mauricio Polk Primary Care Provider: Jim Qiu Other Providers: Rafael Greene ; Noni Ness ; Pancho Irvin ; Bryan Andrews ; Barrie Waldrop Other Interventions: Discharge Summary Assessment (RN) Last Done: 11/18/22 12:07 Supervising Physician Co-Signing Physician Notes Resident Physician Supervision Note: I independently interviewed and examined the patient and verified the kemp history and physical, reviewed labs and image studies and agree with resident findings and care plan. Resident Activity Tracking Resident Involvement: Resident Care Provided Care Provided: Adult Hospital Medicine
[2022-11-18 07:50] LABS: Calcium 7.9 mg/dl (8.5-10.1); Magnesium 1.6 mg/dl (1.7-2.4); Potassium 3.7 mmol/L (3.5-5.1)
[2022-11-18 07:55] LABS: BUN Creatinine Ratio 24.7 (10-20); Creatinine Clr Calc Pharmacy 54.3 ml/min; Est GFR (African American) 86.5 ml/min; Est GFR (Non-African American) 74.6 ml/min
[2022-11-18] MEDS: CHOLECALCIFEROL 1,000 UNITS 25 MCG TAB PO SCH (08:27)
[2022-11-18] MEDS: ATORVASTATIN 40 MG TAB PO SCH (08:27)
[2022-11-18] MEDS: DUTASTERIDE 0.5 MG PO SCH (08:28)
[2022-11-18] MEDS: APIXABAN 5 MG TABLET PO SCH (08:28)
[2022-11-18] MEDS: predniSONE 5 MG TAB PO SCH (08:28)
[2022-11-18] MEDS: ASPIRIN 81 MG ECTAB PO SCH (08:28)
[2022-11-18] MEDS: CEROVITE ADV FORMULA TAB PO SCH (08:28)
[2022-11-18] MEDS: INSULIN ASPART PER UNIT SC SCH (09:22)
[2022-11-18] MEDS: MAGNESIUM SULFATE / D5W 1 GM/100 ML BAG IV SCH ×2 (09:23→11:11)
== END 2022-11-18 12:33 | DRG 69 ==
LOC: 2S 13:08 → ED 13:08 → SUATTDRO 17:00 → 2S 20:02 → SUATTDRO 11-04 13:13 → 3N 11-08 00:15